=== PATIENT | female | born 1935 | race Caucasian/White ===

== ENCOUNTER 2018-07-25 01:08 | Inpatient (IN) ==
--- NOTE | 2018-07-25 08:25 | Internal Med History&Physical ---
Date of Encounter: 07/25/18 Time of Encounter: 08:25 Internal Medicine - H&P: HPI Chief complaint: fall History of present illness: Ms. Arroyo is a 82 year old female with PMHx asthma, atrial fibrillation, cancer, COPD, diabetes, hypertension who presented to [place] after she sustained a mechanical fall she was evaluated and imaging studies revealed nondisplaced right lateral femoral condyle fracture. Also was consulted and patient was transferred for further evaluation and management including obtaining an MRI of her right knee. She is complaining of swelling and pain of her right knee. Past Med Surg Social Fam HX - Past Medical History Medical history: asthma, atrial fibrillation, cancer, COPD, diabetes, hypertension Additional medical history: breast/kidney cancer Psychiatric history: anxiety, depression - Past Surgical History Additional surgical history: nephrectomy left side. lumpectomy. cholecystectomy. toe amputation - Social History Smoking Status: Never smoker Smokeless Tobacco Status: No Alcohol use: none Drug use: none - Family History Mother Living Status: Hx Family Cardiac Disorders: Yes (Strokes) Hx Family Endocrine Disorder: Yes (Diabetes) Sister Living Status: Hx Family Cancer: Yes (Ovarian, Colon, Breast) Internal Medicine - H&P: Meds Alendronate Sodium 70 mg PO QWEEK 04/27/18 [History] Armodafinil [Nuvigil] 500 mg PO QAM 04/27/18 [History] Donepezil HCl [Aricept] 10 mg PO DAILY 04/27/18 [History] Gabapentin [Neurontin] 100 mg PO DAILY 04/27/18 [History] Gemfibrozil [Lopid] 600 mg PO BID 04/27/18 [History] Ondansetron HCl [Zofran] 4 mg PO Q8HR PRN 04/27/18 [History] Albuterol Sulfate [Proair Hfa] 2 puff IH Q6H PRN 07/24/18 [History] Budesonide/Formoterol 160/4.5 [Symbicort 160/4.5] 2 puff IH BID 07/24/18 [History] Hydrochlorothiazide [Microzide] 12.5 mg PO DAILY 07/24/18 [History] Oxybutynin Chloride [Ditropan Xl] 10 mg PO QPM 07/24/18 [History] Amlodipine Besylate 2.5 mg PO DAILY 07/25/18 [History] Ascorbic Acid [Vitamin C] 500 mg PO DAILY 07/25/18 [History] Aspirin [Adult Aspirin Regimen] 81 mg PO DAILY 07/25/18 [History] Cholecalciferol (Vitamin D3) [Vitamin D] 5,000 unit PO DAILY 07/25/18 [History] Cranberry Conc/C/Bacill Coag [Cranberry Tablet] 1 tab PO DAILY 07/25/18 [History] DiphenhydraMINE [Benadryl] 25 - 50 mg PO DAILY PRN 07/25/18 [History] Krill/Om-3/Dha/Epa/Phospho/Ast [Maximum Red Krill [place]-3 Sfgl] 1 cap PO DAILY 07/25/18 [History] Non-Formulary Medication 1 tab PO BID 07/25/18 [History] Non-Formulary Medication 1 tab PO DAILY 07/25/18 [History] Non-Formulary Medication 1 tab PO DAILY 07/25/18 [History] Non-Formulary Medication 1 tab PO DAILY 07/25/18 [History] Non-Formulary Medication 1 tab PO DAILY 07/25/18 [History] Allergy/AdvReac Type Severity Reaction Status Date / Time methenamine [From Hiprex] Allergy Hives Verified 06/03/18 12:40 monosodium glutamate Allergy Anaphylaxis Verified 06/03/18 12:40 moxifloxacin [From Avelox] Allergy Anaphylaxis Verified 06/03/18 12:40 naproxen [From Naprosyn] Allergy Rash Verified 06/03/18 12:40 clarithromycin [From Biaxin] AdvReac Nausea Verified 06/03/18 12:40 pantoprazole [From Protonix] AdvReac Nausea Verified 06/03/18 12:40 All Systems PM: A 10-system review of systems was performed and is negative for pertinent findings except as documented above in the HPI. - Constitutional Constitutional: no chills, no fever(s), no night sweats - EENT Eyes: no change in vision, no discharge, no pain, no photophobia Ears: no ear discharge, no ear pain, no tinnitus Nose, mouth and throat: no dysphagia, no nasal discharge, no neck pain, no sore throat - Cardiovascular Cardiovascular ROS IM: no chest pain, no diaphoresis, no dyspnea, no lightheadedness, no palpitations, no syncope - Respiratory Respiratory: no cough, no dyspnea, no wheezing, no excessive phlegm production - Gastrointestinal Gastrointestinal: no abdominal pain, no diarrhea, no hematemesis, no hematochezia, no melena, no nausea, no vomiting - Genitourinary Genitourinary: no change in urinary stream, no dysuria, no flank pain, no hematuria - Musculoskeletal Musculoskeletal ROS IM: as per HPI, limited range of motion, no numbness, no tingling - Integumentary Integumentary IM: no rash, no unusual bruising - Neurological Neurological ROS: no confusion, no convulsions, no focal weakness, no numbness, no tingling, no tremor(s) - Hematologic/Lymphatic Hematologic/Lymphatic: no easy bruising - Constitutional Vitals: Temp Pulse Resp BP Pulse Ox 97.8 F 64 14 133/63 98 07/25/18 06:54 07/25/18 06:54 07/25/18 06:54 07/25/18 06:54 07/25/18 06:54 Exam: Gen.: Nonacute distress, alert and oriented 3 ENT: Mucosal membranes moist Respiratory: Lungs are clear to auscultation bilaterally without any wheezing rhonchi or rales Cardiovascular: Normal S1 and S2 regular rate rhythm no murmurs rubs or gallops Abdomen: Soft, nontender and nondistended with positive bowel sounds Extremities: No lower extremity edema Skin: Normal color Internal Med - H&P Results - Labs CBC & Chem 7: 07/29/18 06:11 07/29/18 06:11 - Assessment and Plan (1) Knee fracture, right Current Visit: Yes Status: Acute Assessment and plan: Orthopedic was consulted , and decision was made not to proceed with surgery and nonoperative management was recommended, we will consult physical therapy for further evaluation (2) Hypertension Current Visit: Yes Status: Chronic Assessment and plan: We will continue home medication and monitor blood pressure while inpatient Qualifiers: Hypertension type: essential hypertension Qualified Code(s): I10 - Essenti al (primary) hypertension (3) Anemia Current Visit: Yes Status: Chronic Assessment and plan: Hemoglobin are stable we will continue to monitor H&H Qualifiers: Anemia type: iron deficiency Iron deficiency anemia type: unspecified iron deficiency Qualified Code(s): D50.9 - Iron deficiency anemia, unspecified (4) DVT prophylaxis Current Visit: Yes Status: Acute Assessment and plan: The patient have history of paroxysmal A. fib however she is not in any anticoagulation, start the patient on heparin 5000 twice a day - Time Spent With Patient Total time spent is greater than 50% in coordination of care (as documented) at patient's floor/unit and/or counseling patient:
[2018-07-25] MEDS ORDERED: Naloxone 0.4 MG/ML INJ IVP PRN (08:38)
[2018-07-25] MEDS ORDERED: *HR* OxyCODONE Immed Rel 5 MG TABLET PO PRN (08:38)
--- NOTE | 2018-07-25 11:35 | Orthopedic Consult Note ---
Date of Encounter: 07/25/18 Time of Encounter: 11:33 Assessment and Plan (1) Knee fracture, right Current Visit: No Status: Acute The diagnosis and treatment conditions were discussed with the patient. With the nonspecific nature the fracture recommend nonoperative management. Continue the knee immobilizer at this time and she will transition to a hinged knee brace as an outpatient. Recommend nonweightbearing of the right lower extremity to allow for fracture healing. Up with PT as she is able with evaluation for possible rehabilitation placement. She may follow up in [place] close to home with Dr. Benito. History of Present Illness HPI: Ms. Arroyo is a 82 year old female with PMHx asthma, atrial fibrillation, cancer, COPD, diabetes, hypertension who was transferred from [facility] ER with a nondisplaced right lateral femoral condyle fracture. This occurred after mechanical fall on the right knee. She had immediate pain and swelling with inability to ambulate. Denies any loss of consciousness, shortness of breath or chest pain prior to fall. She was placed in knee immobilizer and transferred for further recommendations and orthopedic consult. Past Med Surg Social Fam HX - Past Medical History Medical history: asthma, atrial fibrillation, cancer, COPD, diabetes, hypertension Additional medical history: breast/kidney cancer Psychiatric history: anxiety, depression - Past Surgical History Additional surgical history: nephrectomy left side. lumpectomy. cholecystectomy. toe amputation - Social History Smoking Status: Never smoker Smokeless Tobacco Status: No Alcohol use: none Drug use: none - Family History Mother Living Status: Hx Family Cardiac Disorders: Yes (Strokes) Hx Family Endocrine Disorder: Yes (Diabetes) Sister Living Status: Hx Family Cancer: Yes (Ovarian, Colon, Breast) Medications and Allergies Alendronate Sodium 70 mg PO QWEEK 04/27/18 [History] Amlodipine Besylate 2.5 mg PO DAILY 04/27/18 [History] Armodafinil [Nuvigil] 250 mg PO DAILY 04/27/18 [History] Donepezil HCl [Aricept] 10 mg PO DAILY 04/27/18 [History] FLUoxetine HCl [Sarafem] 10 mg PO DAILY 04/27/18 [History] Gabapentin [Neurontin] 100 mg PO TID 04/27/18 [History] Gemfibrozil [Lopid] 600 mg PO BIDWM 04/27/18 [History] Ondansetron HCl [Zofran] 4 mg PO Q8HR PRN 04/27/18 [History] Ascorbic Acid [Vitamin C] 500 mg PO 0630 tablet 05/02/18 [Rx] Aspirin Enteric Coated [Aspirin EC] 81 mg PO Q48H tablet. 05/02/18 [Rx] Ferrous Sulfate 325 mg PO 0630 tablet 05/02/18 [Rx] Albuterol Sulfate [Proair Hfa] 1 puff IH Q6H 07/24/18 [History] Budesonide/Formoterol 160/4.5 [Symbicort 160/4.5] 2 puff IH BIDR 07/24/18 [History] Cholecalciferol (Vitamin D3) [Vitamin D] 50,000 unit PO QWEEK 07/24/18 [History] Cranberry Fruit Extract [Cranberry] 425 mg PO DAILY 07/24/18 [History] Hydrochlorothiazide [Microzide] 12.5 mg PO DAILY 07/24/18 [History] Loratadine [Claritin] 10 mg PO DAILY 07/24/18 [History] Lutein 6 mg PO DAILY 07/24/18 [History] Oxybutynin Chloride [Ditropan Xl] 10 mg PO DAILY 07/24/18 [History] Allergy/AdvReac Type Severity Reaction Status Date / Time methenamine [From Hiprex] Allergy Hives Verified 06/03/18 12:40 monosodium glutamate Allergy Anaphylaxis Verified 06/03/18 12:40 moxifloxacin [From Avelox] Allergy Anaphylaxis Verified 06/03/18 12:40 naproxen [From Naprosyn] Allergy Rash Verified 06/03/18 12:40 clarithromycin [From Biaxin] AdvReac Nausea Verified 06/03/18 12:40 pantoprazole [From Protonix] AdvReac Nausea Verified 06/03/18 12:40 All Systems Reviewed: The remainder of the systems were reviewed and are negative except as noted in the HPI Physical Exam - Constitutional Vitals: Temp Pulse Resp BP Pulse Ox 98.0 F 61 13 115/67 90 07/25/18 10:37 07/25/18 10:37 07/25/18 10:37 07/25/18 10:37 07/25/18 10:37 Exam: Consult Exam: Constitutional -Vitals reviewed -The patient is well developed and well nourished. -Mood is pleasant. -The patient is well groomed. Psychiatric -The patient is fully alert and oriented x 3. Respiratory: -Respiratory effort normal Abdomen: -Soft abdomen -Non tender -Non distended: Left upper extremity: -No deformities. The overlying skin is intact. No obvious signs of acute trauma. -No tenderness to palpation throughout. -No significant pain with passive motion of the shoulder, elbow, wrist, and fingers within the limits of the bed. -Able to make an "OK" sign, cross the index and long fingers, and extend the thumb. -Sensation grossly intact to light touch throughout the median, radial, and ulnar distributions. -Radial pulse is present; Fingers have good capillary refill. Right upper extremity: -No deformities. The overlying skin is intact. No obvious signs of acute trauma. -No tenderness to palpation throughout. -No significant pain with passive motion of the shoulder, elbow, wrist, and fingers within the limits of the bed. -Able to make an "OK" sign, cross the index and long fingers, and extend the thumb. -Sensation grossly intact to light touch throughout the median, radial, and ulnar distributions. -Radial pulse is present; Fingers have good capillary refill. Left lower extremity: -No deformities. The overlying skin is intact. No obvious signs of acute trauma. -No tenderness to palpation throughout. -No pain with passive motion of the hip, knee, ankle, and toes within the limits of the bed. -No pain with axial loading of the thigh. -Able to dorsiflex and plantarflex the ankle and toes. -Sensation is grossly intact to light touch throughout the sural, saphenous, superficial peroneal, and deep peroneal distributions. -Toes have good capillary refill. Right lower extremity: -Right knee effusion The overlying skin is intact. -tenderness to palpation over lateral aspect right knee. -Pain with range of motion of the knee. -No pain with axial loading of the thigh. -Able to dorsiflex and plantarflex the ankle and toes. -Sensation is grossly intact to light touch throughout the sural, saphenous, superficial peroneal, and deep peroneal distributions. -Toes have good capillary refill. Results - Labs Labs: All other labs normal. - Diagnostic results Knee CT: report reviewed, image reviewed (Nondisplaced fracture of the right distal lateral femoral condyle.) Consult Discharge Plan - Plan Referrals: Merlin Gee MD [Primary Care Provider] -
[2018-07-25] MEDS: *HR* OxyCODONE Immed Rel 5 MG TABLET PO PRN ×2 (15:11→22:00)
[2018-07-26] MEDS: *HR* OxyCODONE Immed Rel 5 MG TABLET PO PRN ×2 (03:20→08:21)
[2018-07-26] MEDS: *HR* Heparin 5,000 UNIT/ML VIAL SQ SCH ×2 (06:20→16:33)
[2018-07-26] MEDS: Budesonide/Formoterol 160/4.5 1 PUFF INH IH SCH ×2 (07:39→21:14)
[2018-07-26] MEDS: Aspirin Enteric Coated 81 MG Tablet PO SCH (08:17)
[2018-07-26] MEDS: Cholecalciferol (D-3) 1,000 UNIT TABLET PO SCH (08:17)
[2018-07-26] MEDS: Gabapentin 100 MG CAPSULE PO SCH (08:18)
[2018-07-26] MEDS: Ascorbic Acid 500 MG TABLET PO SCH (08:18)
[2018-07-26] MEDS: hydroCHLOROthiazide 25 MG TABLET PO SCH (08:18)
[2018-07-26] MEDS: ARMODAFINIL PO SCH (08:19)
[2018-07-26] MEDS ORDERED: [UNRECOGNIZED DRUG - OTHER] PO SCH (09:00)
--- NOTE | 2018-07-26 11:23 | Internal Med Progress Note ---
Hospitalist Progress Note - Encounter Date of Encounter: 07/26/18 Time of Encounter: 09:50 - Subjective Interval History: Patient lying down in bed. Continues to have pain in the right knee region. No fevers or chills reported overnight. Tolerating diet well. - Exam Vitals: Temp Pulse Resp BP Pulse Ox 97.9 F 86 16 129/76 95 07/26/18 10:16 07/26/18 10:16 07/26/18 10:16 07/26/18 10:16 07/26/18 10:16 Exam: General: Patient is alert, no acute distress, oriented x 3 ENT: Mucous membranes moist Respiratory: Good respiratory effort. Normal breath sounds. No wheezing or crackles. Cardiovascular: Regular rate and rhythm. s1 and s2 normal No clicks, rubs, gallops, or murmurs. No pedal edema Abdomen: Abdomen is soft, nontender. Bowel sounds are present Musculoskeletal: Tenderness over right knee region. Decreased range of motion. Skin: warm, dry, intact. Neuro: Alert oriented x 3 normal cranial nerves, no focal deficits - Assessment and Plan (1) Knee fracture, right Current Visit: Yes Status: Acute (2) Hypertension Current Visit: Yes Status: Chronic (3) Anemia Current Visit: Yes Status: Chronic (4) DVT prophylaxis Current Visit: Yes Status: Acute - Summary of Assessment and Plan Summary of Assessment and Plan: Patient with acute right knee fracture. Evaluated by orthopedics and recommended nonoperative management. Pain control. We will add IV Tylenol to pain medication regimen to control pain better. Hemoglobin 9.6 yesterday. She did have low iron levels previously. Will place her on iron supplements. We will continue to monitor blood,. Blood pressure is well controlled. Continue hydrochlorothiazide. Awaiting evaluation by physical therapy. Reported history of diabetes but her A1c was 5.6% in April. Sugars are well controlled. Continue Symbicort and bronchodilators as needed for COPD. Not in acute exacerbation. - Time Spent with Patient Total time spent is greater than 50% in coordination of care (as documented) at patient's floor/unit and/or counseling patient: Consult Discharge Plan - Plan Referrals: Merlin Gee MD [Primary Care Provider] - (2) Hypertension Qualifiers: Hypertension type: essential hypertension Qualified Code(s): I10 - Essential (primary) hypertension (3) Anemia Qualifiers: Anemia type: iron deficiency Iron deficiency anemia type: unspecified iron deficiency Qualified Code(s): D50.9 - Iron deficiency anemia, unspecified
[2018-07-26] MEDS: Acetaminophen IV 1,000 MG/100 ML INFUS..BTL IVPB PRN ×2 (12:22→21:48)
[2018-07-26] MEDS: [UNRECOGNIZED DRUG - OTHER] PO SCH (17:56)
[2018-07-26] MEDS: [UNRECOGNIZED DRUG - OTHER] PO SCH (17:56)
[2018-07-27 02:48] LABS: Basophils % 0.4 %; Eosinophils # 0.3 K/mcL (0.0-0.6); Eosinophils % 3.7 %; Hematocrit 27.7 % (35.3-44.9); Hemoglobin 8.8 g/dL (11.5-15.4); Immature Granulocytes % 0.4 % (0-4); Lymphocytes # 1.4 K/mcL (0.6-4.6); Lymphocytes % 16.7 %; Mean Corpuscular HGB Conc 31.8 g/dL (31.6-35.5); Mean Corpuscular Hemoglobin 29.7 pg (28.0-33.3); Mean Corpuscular Volume 93.6 fL (83.0-100.0); Mean Platelet Volume 10.3 fL (9.4-12.4); Monocytes # 0.5 K/mcL (0.0-1.3); Monocytes % 5.7 %; Neutrophils # 5.9 K/mcL (1.6-8.9); Platelet Count 228 K/mcL (140-400); Red Blood Count 2.96 M/mcL (3.82-4.97); Segmented Neutrophils % 73.1 %
[2018-07-27 03:06] LABS: Calcium 8.6 mg/dL (8.6-10.3); Potassium 3.9 mEq/L (3.5-5.1)
[2018-07-27] MEDS: *HR* Heparin 5,000 UNIT/ML VIAL SQ SCH ×2 (05:59→19:18)
[2018-07-27] MEDS: ARMODAFINIL PO SCH (07:03)
[2018-07-27] MEDS: Cholecalciferol (D-3) 1,000 UNIT TABLET PO SCH (07:18)
[2018-07-27] MEDS: Ascorbic Acid 500 MG TABLET PO SCH (07:19)
[2018-07-27] MEDS: hydroCHLOROthiazide 25 MG TABLET PO SCH (07:19)
[2018-07-27] MEDS: Aspirin Enteric Coated 81 MG Tablet PO SCH (07:19)
[2018-07-27] MEDS: Gabapentin 100 MG CAPSULE PO SCH (07:19)
[2018-07-27] MEDS: [UNRECOGNIZED DRUG - OTHER] PO SCH (07:23)
[2018-07-27] MEDS: [UNRECOGNIZED DRUG - OTHER] PO SCH (07:23)
[2018-07-27] MEDS: Budesonide/Formoterol 160/4.5 1 PUFF INH IH SCH ×2 (07:46→22:51)
[2018-07-27] MEDS: Acetaminophen IV 1,000 MG/100 ML INFUS..BTL IVPB PRN (08:41)
[2018-07-27] MEDS: *HR* OxyCODONE Immed Rel 5 MG TABLET PO PRN ×2 (09:03→23:28)
--- NOTE | 2018-07-27 14:47 | Internal Med Progress Note ---
Hospitalist Progress Note - Encounter Date of Encounter: 07/27/18 Time of Encounter: 08:50 - Subjective Interval History: Patient sitting up in chair. She complains of pain in her right knee. She did well after she received IV Tylenol decision in morning and did not require any pain medication after through the entire day. However her IV has gone back and she has not been able to receive any IV Tylenol today. The pain had previously been also controlled with the Roxicodone. - Exam Vitals: Temp Pulse Resp BP Pulse Ox 97.6 F 78 16 118/68 95 07/27/18 10:37 07/27/18 10:37 07/27/18 10:37 07/27/18 10:37 07/27/18 10:37 Exam: General: Patient is alert, no acute distress, oriented x 3 ENT: Mucous membranes moist Respiratory: Good respiratory effort. Normal breath sounds. No wheezing or crackles. Cardiovascular: Regular rate and rhythm. s1 and s2 normal No clicks, rubs, gallops, or murmurs. No pedal edema Abdomen: Abdomen is soft, nontender. Bowel sounds are present Musculoskeletal: Decreased range of motion in right lower extremity. Tenderness to palpation just above her right knee. Skin: warm, dry, intact. Neuro: Alert oriented x 3 normal cranial nerves, no focal deficits - Assessment and Plan (1) Knee fracture, right Current Visit: Yes Status: Acute (2) Hypertension Current Visit: Yes Status: Chronic (3) Anemia Current Visit: Yes Status: Chronic (4) DVT prophylaxis Current Visit: Yes Status: Acute - Summary of Assessment and Plan Summary of Assessment and Plan: Patient with acute right knee fracture. Continue supportive care. Plan for nonoperative management. PTOT evaluation pending. Continue with current pain medication regimen. We will DC intravenous acetaminophen. Monitor vital signs closely. Follow orthopedic and PTOT recommendations. DVT prophylaxis with subcutaneous heparin. Blood pressure is well controlled. Patient does have stable anemia. Moderate risk for complications. - Time Spent with Patient Total time spent is greater than 50% in coordination of care (as documented) at patient's floor/unit and/or counseling patient: Internal Medicine: Result - Labs CBC & Chem 7: 07/27/18 02:30 07/27/18 02:30 Labs: Short CBC 07/27/18 Range/Units 02:30 WBC 8.1 (4.3-11.1) K/mcL Hgb 8.8 L (11.5-15.4) g/dL Hct 27.7 L (35.3-44.9) % Plt Count 228 (140-400) K/mcL Neutrophils # 5.9 (1.6-8.9) K/mcL [facility] 07/27/18 02:30 Sodium 137 Potassium 3.9 Chloride 102 Carbon Dioxide 24 BUN 42 H Creatinine 1.11 Glucose 131 H Calcium 8.6 Consult Discharge Plan - Plan Referrals: Merlin Gee MD [Primary Care Provider] - (2) Hypertension Qualifiers: Hypertension type: essential hypertension Qualified Code(s): I10 - Essential (primary) hypertension (3) Anemia Qualifiers: Anemia type: iron deficiency Iron deficiency anemia type: unspecified iron deficiency Qualified Code(s): D50.9 - Iron deficiency anemia, unspecified
[2018-07-28] MEDS: *HR* Heparin 5,000 UNIT/ML VIAL SQ SCH ×2 (04:31→17:29)
[2018-07-28] MEDS: *HR* OxyCODONE Immed Rel 5 MG TABLET PO PRN (06:06)
[2018-07-28 07:04] LABS: Basophils % 0.3 %; Eosinophils # 0.3 K/mcL (0.0-0.6); Eosinophils % 4.6 %; Hematocrit 26.1 % (35.3-44.9); Hemoglobin 8.1 g/dL (11.5-15.4); Immature Granulocytes % 0.5 % (0-4); Lymphocytes # 1.5 K/mcL (0.6-4.6); Lymphocytes % 22.7 %; Mean Corpuscular Hemoglobin 29.1 pg (28.0-33.3); Mean Corpuscular Volume 93.9 fL (83.0-100.0); Mean Platelet Volume 11.4 fL (9.4-12.4); Monocytes # 0.5 K/mcL (0.0-1.3); Monocytes % 6.8 %; Neutrophils # 4.3 K/mcL (1.6-8.9); Platelet Count 252 K/mcL (140-400); Red Blood Count 2.78 M/mcL (3.82-4.97); Segmented Neutrophils % 65.1 %
[2018-07-28 07:21] LABS: Calcium 9.3 mg/dL (8.6-10.3); Potassium 4.3 mEq/L (3.5-5.1)
[2018-07-28] MEDS: Budesonide/Formoterol 160/4.5 1 PUFF INH IH SCH ×2 (07:36→20:38)
[2018-07-28] MEDS: Cholecalciferol (D-3) 1,000 UNIT TABLET PO SCH (09:13)
[2018-07-28] MEDS: Ascorbic Acid 500 MG TABLET PO SCH (09:13)
[2018-07-28] MEDS: Gabapentin 100 MG CAPSULE PO SCH (09:13)
[2018-07-28] MEDS: Acetaminophen 325 MG TABLET PO PRN ×2 (09:14→19:58)
[2018-07-28] MEDS: Aspirin Enteric Coated 81 MG Tablet PO SCH (09:14)
[2018-07-28] MEDS: [UNRECOGNIZED DRUG - OTHER] PO SCH (09:17)
[2018-07-28] MEDS: [UNRECOGNIZED DRUG - OTHER] PO SCH (09:17)
[2018-07-28] MEDS: hydroCHLOROthiazide 25 MG TABLET PO SCH (09:18)
[2018-07-28] MEDS: *HR* OxyCODONE ER (12 HR) 10 MG TABLET PO SCH ×2 (09:51→17:29)
--- NOTE | 2018-07-28 11:28 | Internal Med Progress Note ---
Hospitalist Progress Note - Encounter Date of Encounter: 07/28/18 Time of Encounter: 09:40 - Subjective Interval History: Patient complains of worsening pain in her right knee today. Feels that the braces too tight. Denies any fevers or chills. Tolerating diet well. No nausea or vomiting. No other complaints at this time. - Exam Vitals: Temp Pulse Resp BP Pulse Ox 97.9 F 65 16 113/72 97 07/28/18 11:21 07/28/18 11:21 07/28/18 11:07/28/18 11:07/28/18 11:21 Exam: General: Patient is alert, mild distress, oriented x 3 Respiratory: Good respiratory effort. Normal breath sounds. No wheezing or crackles. Cardiovascular: Regular rate and rhythm. s1 and s2 normal No clicks, rubs, gallops, or murmurs. No pedal edema Abdomen: Abdomen is soft, nontender. Bowel sounds are present Musculoskeletal: Spontaneously moving all extremities; tenderness over right knee. Decreased range of motion. Currently in brace Skin: warm, dry, intact. Neuro: Alert oriented x 3 normal cranial nerves, no focal deficits - Assessment and Plan (1) Knee fracture, right Current Visit: Yes Status: Acute Assessment and Plan: Conservative management. Awaiting placement to skilled rehabilitation. We will adjust pain medication regimen to control her pain better. Continue PTOT as tolerated. Follow up with orthopedics after discharge. (2) Hypertension Current Visit: Yes Status: Chronic Assessment and Plan: Well-controlled (3) Anemia Current Visit: Yes Status: Chronic Assessment and Plan: Hemoglobin 8.1 today. Will monitor. Check vitamin B-12 folic acid and iron levels. (4) DVT prophylaxis Current Visit: Yes Status: Acute Assessment and Plan: On subcutaneous heparin - Time Spent with Patient Total time spent is greater than 50% in coordination of care (as documented) at patient's floor/unit and/or counseling patient: Internal Medicine: Result - Labs CBC & Chem 7: 07/28/18 05:57 07/28/18 05:57 Labs: Short CBC 07/28/18 Range/Units 05:57 WBC 6.6 (4.3-11.1) K/mcL Hgb 8.1 L (11.5-15.4) g/dL Hct 26.1 L (35.3-44.9) % Plt Count 252 (140-400) K/mcL Neutrophils # 4.3 (1.6-8.9) K/mcL BMP 07/28/18 05:57 Sodium 138 Potassium 4.3 Chloride 103 Carbon Dioxide 25 BUN 43 H Creatinine 1.07 Glucose 124 H Calcium 9.3 Consult Discharge Plan - Plan Referrals: Merlin Gee MD [Primary Care Provider] - (2) Hypertension Qualifiers: Hypertension type: essential hypertension Qualified Code(s): I10 - Essential (primary) hypertension (3) Anemia Qualifiers: Anemia type: iron deficiency Iron deficiency anemia type: unspecified iron deficiency Qualified Code(s): D50.9 - Iron deficiency anemia, unspecified
[2018-07-28] MEDS: NUVIGIL PO SCH (11:55)
[2018-07-29] MEDS: *HR* OxyCODONE Immed Rel 5 MG TABLET PO PRN ×2 (02:12→11:36)
[2018-07-29] MEDS: *HR* OxyCODONE ER (12 HR) 10 MG TABLET PO SCH ×2 (06:02→17:24)
[2018-07-29] MEDS: *HR* Heparin 5,000 UNIT/ML VIAL SQ SCH ×2 (06:03→17:24)
[2018-07-29 06:48] LABS: Basophils % 0.3 %; Eosinophils # 0.3 K/mcL (0.0-0.6); Eosinophils % 4.3 %; Hematocrit 28.5 % (35.3-44.9); Hemoglobin 9.1 g/dL (11.5-15.4); Immature Granulocytes % 0.3 % (0-4); Lymphocytes # 1.3 K/mcL (0.6-4.6); Lymphocytes % 22.2 %; Mean Corpuscular HGB Conc 31.9 g/dL (31.6-35.5); Mean Corpuscular Hemoglobin 29.4 pg (28.0-33.3); Mean Corpuscular Volume 92.2 fL (83.0-100.0); Mean Platelet Volume 10.9 fL (9.4-12.4); Monocytes # 0.4 K/mcL (0.0-1.3); Monocytes % 6.1 %; Neutrophils # 3.9 K/mcL (1.6-8.9); Platelet Count 270 K/mcL (140-400); Red Blood Count 3.09 M/mcL (3.82-4.97); Segmented Neutrophils % 66.8 %
[2018-07-29 07:11] LABS: Calcium 9.6 mg/dL (8.6-10.3)
[2018-07-29] MEDS: Budesonide/Formoterol 160/4.5 1 PUFF INH IH SCH ×2 (07:44→20:37)
[2018-07-29] MEDS: Aspirin Enteric Coated 81 MG Tablet PO SCH (10:08)
[2018-07-29] MEDS: [UNRECOGNIZED DRUG - OTHER] PO SCH (10:09)
[2018-07-29] MEDS: Ascorbic Acid 500 MG TABLET PO SCH (10:09)
[2018-07-29] MEDS: Cholecalciferol (D-3) 1,000 UNIT TABLET PO SCH (10:09)
[2018-07-29] MEDS: hydroCHLOROthiazide 25 MG TABLET PO SCH (10:09)
[2018-07-29] MEDS: [UNRECOGNIZED DRUG - OTHER] PO SCH (10:09)
[2018-07-29] MEDS: Gabapentin 100 MG CAPSULE PO SCH (10:09)
[2018-07-29] MEDS: NUVIGIL PO SCH (10:10)
--- NOTE | 2018-07-29 14:24 | Internal Med Progress Note ---
Hospitalist Progress Note - Encounter Date of Encounter: 07/29/18 Time of Encounter: 11:00 - Subjective Interval History: Patient is an 82-year-old female who presents due to mechanical fall found to have nondisplaced right lateral femoral condyle fracture. Orthopedics with recommendations for nonoperative management including knee immobilizer and physical therapy. Awaiting placement to senior living facility; anticipate discharge on 07/30/18 - Exam Vitals: Temp Pulse Resp BP Pulse Ox 97.9 F 76 16 126/69 96 07/29/18 10:54 07/29/18 10:54 07/29/18 10:54 07/29/18 10:54 07/29/18 10:54 Exam: Gen.: Nonacute distress, alert and oriented 3 ENT: Mucosal membranes moist Respiratory: Lungs are clear to auscultation bilaterally without any wheezing rhonchi or rales Cardiovascular: Normal S1 and S2 regular rate rhythm no murmurs rubs or gallops Abdomen: Soft, nontender and nondistended with positive bowel sounds Extremities: No lower extremity edema Skin: Normal color - Assessment and Plan (1) Knee fracture, right Current Visit: Yes Status: Acute Assessment and Plan: Patient presented due to mechanical fall found to have nondisplaced right lateral femoral condyle fracture. Orthopedics with recommendations for nonoperative management including knee immobilizer and physical therapy. Awaiting placement to senior living facility; anticipate discharge on 07/30/18 (2) Hypertension Current Visit: Yes Status: Chronic Assessment and Plan: Continue home dose of hydrochlorothiazide (3) Anemia Current Visit: Yes Status: Chronic Assessment and Plan: Stable; continue to monitor DVT Prophylaxis: Heparin subcutaneous - Time Spent with Patient Total time spent is greater than 50% in coordination of care (as documented) at patient's floor/unit and/or counseling patient: Internal Medicine: Result - Labs CBC & Chem 7: 07/29/18 06:11 07/29/18 06:11 Labs: Short CBC 07/29/18 Range/Units 06:11 WBC 5.8 (4.3-11.1) K/mcL Hgb 9.1 L (11.5-15.4) g/dL Hct 28.5 L (35.3-44.9) % Plt Count 270 (140-400) K/mcL Neutrophils # 3.9 (1.6-8.9) K/mcL BMP 07/29/18 06:11 Sodium 140 Potassium 4.0 Chloride 103 Carbon Dioxide 25 BUN 44 H Creatinine 1.10 Glucose 117 H Calcium 9.6 Consult Discharge Plan - Plan Referrals: Merlin Gee MD [Primary Care Provider] - (2) Hypertension Qualifiers: Hypertension type: essential hypertension Qualified Code(s): I10 - Essential (primary) hypertension (3) Anemia Qualifiers: Anemia type: iron deficiency Iron deficiency anemia type: unspecified iron deficiency Qualified Code(s): D50.9 - Iron deficiency anemia, unspecified
[2018-07-29] MEDS: Acetaminophen 325 MG TABLET PO PRN (21:47)
--- NOTE | 2018-07-30 01:42 | Event Note ---
Date of Encounter: 07/30/18 Time of Encounter: 00:26 Alerted by pts. nurse SAMI Bashir that the pt. had gotten up to use the bedside commode with assistance from Tech when her legs buckled and pt. was assisted to the floor. No actual fall. Went to see the pt. who was resting in bed. Pt. stated that she was attempting to use the walker for stability when when she lost her footing. Pt. denied falling or injuring herself. I asked the pt. how she felt now and she stated just fine. Falls precautions and up with assist only ordered. I instructed the pt. to not get out of bed without assistance and that I had made her falls precautions. The pt. expressed understanding and agreement to this plan. Nurse instructed to continue monitoring the pt. closely and alert me immediately of any adverse changes.
[2018-07-30] MEDS: *HR* Heparin 5,000 UNIT/ML VIAL SQ SCH (06:17)
[2018-07-30] MEDS: *HR* OxyCODONE ER (12 HR) 10 MG TABLET PO SCH (06:17)
[2018-07-30] MEDS: Budesonide/Formoterol 160/4.5 1 PUFF INH IH SCH (07:42)
[2018-07-30] MEDS: Aspirin Enteric Coated 81 MG Tablet PO SCH (07:54)
[2018-07-30] MEDS: Cholecalciferol (D-3) 1,000 UNIT TABLET PO SCH (07:54)
[2018-07-30] MEDS: Ascorbic Acid 500 MG TABLET PO SCH (07:55)
[2018-07-30] MEDS: hydroCHLOROthiazide 25 MG TABLET PO SCH (07:55)
[2018-07-30] MEDS: Gabapentin 100 MG CAPSULE PO SCH (07:55)
[2018-07-30] MEDS: [UNRECOGNIZED DRUG - OTHER] PO SCH (07:57)
[2018-07-30] MEDS: [UNRECOGNIZED DRUG - OTHER] PO SCH (07:57)
[2018-07-30] MEDS: NUVIGIL PO SCH (08:43)
[2018-07-30] MEDS: *HR* OxyCODONE Immed Rel 5 MG TABLET PO PRN (14:03)
--- NOTE | 2018-07-30 15:18 | Discharge Summary ---
Date of Encounter: 07/30/18 Time of Encounter: 11:00 - Discharge Diagnosis (1) Hypertension Priority: Secondary Status: Chronic Qualifiers: Hypertension type: essential hypertension Qualified Code(s): I10 - Essential (primary) hypertension (2) Anemia Priority: Secondary Status: Chronic Qualifiers: Anemia type: iron deficiency Iron deficiency anemia type: unspecified iron deficiency Qualified Code(s): D50.9 - Iron deficiency anemia, unspecified (3) Knee fracture, right Priority: Primary Status: Acute Hospital course: Patient is an 82-year-old female who presents due to mechanical fall found to have nondisplaced right lateral femoral condyle fracture. During patients hospital stay Orthopedics consulted with recommendations for nonoperative management including knee immobilizer and physical therapy. Patient will be discharged to [facility] facility for strengthening for reconditioning - Time Spent with Patient Total time spent providing and/or coordinating discharge services: - Discharge Medications Prescriptions: New OxyCODONE Immed Rel [Roxicodone 5 MG] 10 mg PO Q4HR PRN 3 Days #18 tablet PRN Reason: Severe Pain Continued Ascorbic Acid [Vitamin C] 500 mg PO DAILY Aspirin [Adult Aspirin Regimen] 81 mg PO DAILY Cholecalciferol (Vitamin D3) [Vitamin D3] 5,000 unit PO DAILY Cranberry Conc/C/Bacill Coag [Cranberry Tablet] 1 tab PO DAILY Krill/Om-3/Dha/Epa/Phospho/Ast [Maximum Red Krill [place]-3 Sfgl] 1 cap PO DAILY Non-Formulary Medication 1 tab PO DAILY Non-Formulary Medication 1 tab PO DAILY Non-Formulary Medication 1 tab PO DAILY Non-Formulary Medication 1 tab PO BID Non-Formulary Medication 1 tab PO DAILY DiphenhydraMINE [Benadryl] 25 - 50 mg PO DAILY PRN PRN Reason: Allergy Symptoms Amlodipine Besylate 2.5 mg PO DAILY Ondansetron HCl [Zofran] 4 mg PO Q8HR PRN PRN Reason: Nausea Gemfibrozil [Lopid] 600 mg PO BID Armodafinil [Nuvigil] 500 mg PO QAM Gabapentin [Neurontin] 100 mg PO DAILY Donepezil HCl [Aricept] 10 mg PO DAILY Alendronate Sodium 70 mg PO QWEEK Oxybutynin Chloride [Ditropan Xl] 10 mg PO QPM Budesonide/Formoterol 160/4.5 [Symbicort 160/4.5] 2 puff IH BID Albuterol Sulfate [Proair Hfa] 2 puff IH Q6H PRN PRN Reason: Wheezing Hydrochlorothiazide [Microzide] 12.5 mg PO DAILY Home Medications: Alendronate Sodium 70 mg PO QWEEK 04/27/18 [History] Armodafinil [Nuvigil] 500 mg PO QAM 04/27/18 [History] Donepezil HCl [Aricept] 10 mg PO DAILY 04/27/18 [History] Gabapentin [Neurontin] 100 mg PO DAILY 04/27/18 [History] Gemfibrozil [Lopid] 600 mg PO BID 04/27/18 [History] Ondansetron HCl [Zofran] 4 mg PO Q8HR PRN 04/27/18 [History] Albuterol Sulfate [Proair Hfa] 2 puff IH Q6H PRN 07/24/18 [History] Budesonide/Formoterol 160/4.5 [Symbicort 160/4.5] 2 puff IH BID 07/24/18 [History] Hydrochlorothiazide [Microzide] 12.5 mg PO DAILY 07/24/18 [History] Oxybutynin Chloride [Ditropan Xl] 10 mg PO QPM 07/24/18 [History] Amlodipine Besylate 2.5 mg PO DAILY 07/25/18 [History] Ascorbic Acid [Vitamin C] 500 mg PO DAILY 07/25/18 [History] Aspirin [Adult Aspirin Regimen] 81 mg PO DAILY 07/25/18 [History] Cholecalciferol (Vitamin D3) [Vitamin D3] 5,000 unit PO DAILY 07/25/18 [History] Cranberry Conc/C/Bacill Coag [Cranberry Tablet] 1 tab PO DAILY 07/25/18 [History] DiphenhydraMINE [Benadryl] 25 - 50 mg PO DAILY PRN 07/25/18 [History] Krill/Om-3/Dha/Epa/Phospho/Ast [Maximum Red Krill [place]-3 Sfgl] 1 cap PO DAILY 07/25/18 [History] Non-Formulary Medication 1 tab PO BID 07/25/18 [History] Non-Formulary Medication 1 tab PO DAILY 07/25/18 [History] Non-Formulary Medication 1 tab PO DAILY 07/25/18 [History] Non-Formulary Medication 1 tab PO DAILY 07/25/18 [History] Non-Formulary Medication 1 tab PO DAILY 07/25/18 [History] OxyCODONE Immed Rel [Roxicodone 5 MG] 10 mg PO Q4HR PRN 3 Days #18 tablet 07/30/18 [Rx] Allergies/Adverse Reactions: Allergy/AdvReac Type Severity Reaction Status Date / Time methenamine [From Hiprex] Allergy Hives Verified 06/03/18 12:40 monosodium glutamate Allergy Anaphylaxis Verified 06/03/18 12:40 moxifloxacin [From Avelox] Allergy Anaphylaxis Verified 06/03/18 12:40 naproxen [From Naprosyn] Allergy Rash Verified 06/03/18 12:40 clarithromycin [From Biaxin] AdvReac Nausea Verified 06/03/18 12:40 pantoprazole [From Protonix] AdvReac Nausea Verified 06/03/18 12:40 Date of admission: 07/27/18 14:18 Primary care physician: Merlin Gee MD Consults: 07/25/18 07:00 Consult to Orthopedic Surgery [CONS] Routine Consulting Provider: Orthoped[facility] Reason for Consult: Right femoral fracture Call Completed: Yes 07/25/18 17:41 Consult to Occupational Therapy [CONS] Routine Comment: Evaluate, develop and implement POC Reason for Consult: Right femoral fracture Does patient have active BEDREST order?: No Is patient medically & hemodynamically stable?: Yes Patient assessed for mobility or mobilized this visit?: No Consult to Physical Therapy [CONS] Routine Comment: Evaluate, develop and implement POC Reason for Consult: Right femoral fracture Does patient have active BEDREST order?: No Is patient medically & hemodynamically stable?: Yes Patient assessed for mobility or mobilized this visit?: No 07/27/18 09:11 Consult to [employer] [CONS] Routine Reason for SW Consult: Discharge planning - Constitutional Vitals: Temp Pulse Resp BP Pulse Ox 98.2 F 69 16 119/71 95 07/30/18 11:27 07/30/18 11:27 07/30/18 11:27 07/30/18 11:27 07/30/18 11:27 Exam: Gen.: Nonacute distress, alert and oriented 3 Skin: Normal color - Patient Status Disposition: Transfer SNF - Discharge Instructions Follow Up With: Merlin Gee MD [Primary Care Provider] - Heriberto Benito MD [Non-Partnered Physician] - 08/05/18 9:00 am
--- NOTE | 2018-07-30 15:20 | Physician Discharge Referral ---
[facility] Referral Info Institutional Level of Care: Skilled - Diagnosis (1) Hypertension Status: Chronic (2) Anemia Status: Chronic (3) Knee fracture, right Status: Acute (4) DVT prophylaxis Status: Acute - Transfer Medications Home Medications: Alendronate Sodium 70 mg PO QWEEK 04/27/18 [History] Armodafinil [Nuvigil] 500 mg PO QAM 04/27/18 [History] Donepezil HCl [Aricept] 10 mg PO DAILY 04/27/18 [History] Gabapentin [Neurontin] 100 mg PO DAILY 04/27/18 [History] Gemfibrozil [Lopid] 600 mg PO BID 04/27/18 [History] Ondansetron HCl [Zofran] 4 mg PO Q8HR PRN 04/27/18 [History] Albuterol Sulfate [Proair Hfa] 2 puff IH Q6H PRN 07/24/18 [History] Budesonide/Formoterol 160/4.5 [Symbicort 160/4.5] 2 puff IH BID 07/24/18 [History] Hydrochlorothiazide [Microzide] 12.5 mg PO DAILY 07/24/18 [History] Oxybutynin Chloride [Ditropan Xl] 10 mg PO QPM 07/24/18 [History] Amlodipine Besylate 2.5 mg PO DAILY 07/25/18 [History] Ascorbic Acid [Vitamin C] 500 mg PO DAILY 07/25/18 [History] Aspirin [Adult Aspirin Regimen] 81 mg PO DAILY 07/25/18 [History] Cholecalciferol (Vitamin D3) [Vitamin D3] 5,000 unit PO DAILY 07/25/18 [History] Cranberry Conc/C/Bacill Coag [Cranberry Tablet] 1 tab PO DAILY 07/25/18 [History] DiphenhydraMINE [Benadryl] 25 - 50 mg PO DAILY PRN 07/25/18 [History] Krill/Om-3/Dha/Epa/Phospho/Ast [Maximum Red Krill [place]-3 Sfgl] 1 cap PO DAILY 07/25/18 [History] Non-Formulary Medication 1 tab PO BID 07/25/18 [History] Non-Formulary Medication 1 tab PO DAILY 07/25/18 [History] Non-Formulary Medication 1 tab PO DAILY 07/25/18 [History] Non-Formulary Medication 1 tab PO DAILY 07/25/18 [History] Non-Formulary Medication 1 tab PO DAILY 07/25/18 [History] Allergies/Adverse Reactions: Allergy/AdvReac Type Severity Reaction Status Date / Time methenamine [From Hiprex] Allergy Hives Verified 06/03/18 12:40 monosodium glutamate Allergy Anaphylaxis Verified 06/03/18 12:40 moxifloxacin [From Avelox] Allergy Anaphylaxis Verified 06/03/18 12:40 naproxen [From Naprosyn] Allergy Rash Verified 06/03/18 12:40 clarithromycin [From Biaxin] AdvReac Nausea Verified 06/03/18 12:40 pantoprazole [From Protonix] AdvReac Nausea Verified 06/03/18 12:40 - Respiratory Orders Smoking Cessation: Smoking cessation has been advised. For more information, call the [place] Tobacco Quit Line at 3-069-KNTS-NOW. CERTIFICATION: I certify that the transfer of the above named patient to an Extended Care Facility is necessary for the continuing treatment of the diagnosis listed. The above information is true and accurate reflection of patient's current condition. Confidential - Redisclosure prohibited without a patient's written consent.
[2018-07-30 16:32] VITALS: BP 134/73
== END 2018-07-30 17:36 | DRG 534 ==
LOC: 3NENU → SUATTDRO 03:53
PROVIDERS: ADMIT Internal Medicine; ATTEND Hospitalist

== ENCOUNTER 2018-10-07 20:28 | Inpatient (IN) ==
[2018-10-07] MEDS ORDERED: traMADol 50 MG TABLET PO PRN (23:06)
[2018-10-08] MEDS ORDERED: Acetaminophen IV 500 MG/50 ML INFUS..BTL IVPB ONE (01:36)
[2018-10-08] MEDS ORDERED: Ondansetron 4 MG/2 ML VIAL IVP PRN (02:05)
[2018-10-08] MEDS ORDERED: Acetaminophen 325 MG TABLET PO PRN (02:05)
[2018-10-08] MEDS ORDERED: Naloxone 0.4 MG/ML INJ IVP PRN ×2 (02:05→22:27)
[2018-10-08] MEDS ORDERED: *HR* OxyCODONE Immed Rel 5 MG TABLET PO PRN ×3 (02:05→22:27)
[2018-10-08] MEDS ORDERED: 0.9 % Sodium Chloride 1,000 ML IVC SCH ×2 (02:15→22:27)
--- NOTE | 2018-10-08 02:48 | Internal Med History&Physical ---
Date of Encounter: 10/08/18 Time of Encounter: 01:30 Internal Medicine - H&P: HPI Chief complaint: Fall w/injury to left arm Admitted From: Intrahospital Transfer Plans for Post Hospital Care: Home History of present illness: Ms. Arroyo is a 83 year old female w/PMH of asthma, CKD, COPD, atrial fibrillation not on anticoagulation, diabetes, HTN, previous breast and kidney cancer (resolved) presents from [facility] ED w/CC and left arm pain. Patient reports she fell today while ambulating to the bathroom with her walker. Patient states she left the walker outside the bathroom, entered the bathroom and tripped and fell landing on her left arm. Patient denies LOC or striking head. Patient had recent surgery on RLE and was trying to protect her leg. Patient reports she felt a "pop" in her arm. Denies hx of falls. Reports 8/10 pain w/movement. Pain is alleviated w/rest. Patient denies recent illness, fever, chills, nausea, vomiting, changes in vision, headache, unusual bleeding, chest pain, shortness of breath, abdominal pain, diarrhea, constipation, dizziness, lightheadedness, numbness, tingling, pre-syncope, or syncope. Past Med Surg Social Fam HX - Past Medical History Source: patient, old records reviewed, obtained from family Medical history: asthma, atrial fibrillation, cancer, COPD, diabetes, hyper tension Additional medical history: breast/kidney cancer Psychiatric history: anxiety, depression - Past Surgical History Surgical History: breast surgery (Lumpectomy in left breast), hysterectomy, orthopedic, other, other (Nephrectomy of left kidney d/t kidney cancer) Additional surgical history: nephrectomy left side. lumpectomy. cholecystectomy. toe amputation - Social History Smoking Status: Former smoker Packs per day: 2 PPD - Reports quitting in 1996 Smokeless Tobacco Status: No Alcohol use: rarely Drug use: none Occupational status: previously employed Current living situation: Home, With Family Activity Level: Uses cane/walker Recent Out of Country Travel Within the Last 8 Weeks: No Exposure or Possible Exposure to Illness During Travel: No - Family History Mother Race: Family Member Ethnicity: Non- Living Status: Age at : 74 Cause of : CVA Hx Family Cardiac Disorders: Yes (Strokes) Hx Family Endocrine Disorder: Yes (Diabetes) Sister Race: Family Member Ethnicity: Non- Living Status: Age at : 86 Cause of : Ovarian cancer Hx Family Cancer: Yes (Ovarian, Colon, Breast) Father History Unknown: Yes Race: Family Member Ethnicity: Non- Living Status: Internal Medicine - H&P: Meds RX: Alendronate Sodium 70 mg PO QWEEK 04/27/18 [History] RX: Armodafinil [Nuvigil] 250 mg PO QAM 04/27/18 [History] RX: Gabapentin [Neurontin] 100 mg PO DAILY 04/27/18 [History] RX: Gemfibrozil [Lopid] 600 mg PO BID 04/27/18 [History] RX: Ondansetron HCl [Zofran] 4 mg PO Q8HR PRN 04/27/18 [History] RX: Albuterol Sulfate [Proair Hfa] 2 puff IH Q6H PRN 07/24/18 [History] RX: Budesonide/Formoterol 160/4.5 [Symbicort 160/4.5] 2 puff IH BID 07/24/18 [History] RX: Oxybutynin Chloride [Ditropan XL] 10 mg PO QPM 07/24/18 [History] RX: Ascorbic Acid [Vitamin C] 500 mg PO DAILY 07/25/18 [History] RX: Aspirin [Adult Aspirin Regimen] 81 mg PO DAILY 07/25/18 [History] RX: Cholecalciferol (Vitamin D3) [Vitamin D3] 5,000 unit PO DAILY 07/25/18 [History] RX: Cranberry Conc/C/Bacill Coag [Cranberry Tablet] 1 tab PO DAILY 07/25/18 [History] RX: Krill/Om-3/Dha/Epa/Phospho/Ast [Maximum Red Krill Java-3 Sfgl] 1 cap PO DAILY 07/25/18 [History] RX: Non-Formulary Medication 1 tab PO BID 07/25/18 [History] RX: Non-Formulary Medication 1 tab PO DAILY 07/25/18 [History] RX: Non-Formulary Medication 1 tab PO DAILY 07/25/18 [History] RX: Non-Formulary Medication 1 tab PO DAILY 07/25/18 [History] RX: Non-Formulary Medication 1 tab PO DAILY 07/25/18 [History] Allergy/AdvReac Type Severity Reaction Status Date / Time methenamine [From Hiprex] Allergy Hives Verified 10/07/18 19:01 monosodium glutamate Allergy Anaphylaxis Verified 10/07/18 19:01 moxifloxacin [From Avelox] Allergy Anaphylaxis Verified 10/07/18 19:01 naproxen [From Naprosyn] Allergy Rash Verified 10/07/18 19:01 clarithromycin [From Biaxin] AdvReac Nausea Verified 10/07/18 19:01 pantoprazole [From Protonix] AdvReac Nausea Verified 10/07/18 19:01 All Systems PM: A 10-system review of systems was performed and is negative for pertinent findings except as documented above in the HPI. - Constitutional Constitutional: as per HPI, no chills, no fever(s), no night sweats - EENT Eyes: no change in vision, no discharge, no pain, no photophobia Ears: no ear discharge, no ear pain, no tinnitus Nose, mouth and throat: no dysphagia, no nasal discharge, no neck pain, no sore throat - Breasts Breasts: as per HPI - Cardiovascular Cardiovascular ROS IM: as per HPI, irregular heart rhythm (Hx of atrial fibrillation not on anticoagulation), no chest pain, no diaphoresis, no dyspnea, no lightheadedness, no palpitations, no syncope - Respiratory Respiratory: no cough, no dyspnea, no wheezing, no excessive phlegm production - Gastrointestinal Gastrointestinal: no abdominal pain, no diarrhea, no hematemesis, no hematochezia, no melena, no nausea, no vomiting - Genitourinary Genitourinary: no change in urinary stream, no dysuria, no flank pain, no h ematuria Menstruation: as per HPI, post hysterectomy - Musculoskeletal Musculoskeletal ROS IM: no numbness, no tingling - Integumentary Integumentary IM: no rash, no unusual bruising - Neurological Neurological ROS: no confusion, no convulsions, no focal weakness, no numbness, no tingling, no tremor(s) - Psychiatric Psychiatric: as per HPI, anxiety, depression - Endocrine Endocrine IM: as per HPI - Hematologic/Lymphatic Hematologic/Lymphatic: no easy bruising - Allergic/Immunologic Allergic/Immunologic: as per HPI - Constitutional Vitals: Temp Pulse Resp BP Pulse Ox 97.8 F 60 15 97/55 94 10/08/18 02:31 10/08/18 02:31 10/08/18 02:31 10/08/18 02:31 10/08/18 02:31 General appearance: Present: cooperative, mild distress (Pain LUE), A&O X 3, pleasant, underweight, answers questions appropriately Exam: Patient examined at bedside. Patient reports 8/10 pain in left arm w/movement. Patient denies any other sx or complaints on exam. VS: 97.8F temp, HR 74, RR 15, BP 105/69, SPO2 94% on room air. - Head Head exam: Present: atraumatic, normocephalic - Eye Eye exam: Present: PERRL, conjuntiva pink, sclera anicteric Pupils: Present: PERRL - ENT ENT exam: Present: normal exam - Neck Neck exam general surgery: Present: normal inspection, supple, trachea midline. Absent: lymphadenopathy - Respiratory Respiratory exam: Present: CTAB. Absent: accessory muscle use, rales, rhonchi, wheezes - Cardiovascular Cardiovascular exam: Present: bradycardia, +S1, +S2. Absent: diastolic murmur, gallop, rubs, systolic murmur - GI/Abdominal GI/Abdominal exam: Present: normal bowel sounds, soft, no peritoneal signs. Absent: distended, tenderness - Rectal Rectal exam: Present: deferred - Additional comments: exam deferred. - Extremities Exam Extremities exam: Present: pedal edema, warm, radial pulses palpable and symmetrical. Absent: calf tenderness, cyanotic - Back Exam Back exam: Present: normal inspection - Neurological Exam Neurological exam: Present: alert, CN II-XII intact, oriented X3, no focal deficits. Absent: pronater drift, facial droop, speech deficit - Psychiatric Psychiatric exam: Present: normal affect, normal mood - Skin Skin exam: Present: dry, intact Internal Med - H&P Results - Labs CBC & Chem 7: 10/08/18 02:34 10/08/18 02:34 - EKG Data EKG shows normal: sinus rhythm Rate: bradycardia - EKG Data Prior EKG available for review: no EKG comments: 10/08/18 03:10 EKG dated 10/08/18 shows sinus bradycardia. Borderline ECG. - Diagnostic Studies Other Images Additional comments: EXAMINATION: 3 XRAY VIEWS OF THE LEFT ELBOW; 2 XRAY VIEWS OF THE LEFT HUMERUS 10/07/2018 7:27 pm COMPARISON: None. HISTORY: ORDERING SYSTEM PROVIDED HISTORY: FELL, LANDED ON LT ARM; ORDERING SYSTEM PROVIDED HISTORY: fall pain Initial encounter. FINDINGS: There is an acute mildly displaced supracondylar fracture of the distal humerus. No definite articular surface involvement. Evaluation of the elbow is limited by suboptimal positioning. No other fracture identified. No dislocation. The acromioclavicular and glenohumeral joints are intact. The soft tissues are unremarkable. XR/XR humerus LT IMPRESSION: Acute mildly displaced supracondylar fracture of the distal humerus. D/ / Haroon Jason MD / Haroon Jason MD Interpreting Provider: Haroon Jason MD INATION: 2 XRAY VIEWS OF THE RIGHT FEMUR 10/07/2018 7:27 pm COMPARISON: Right knee radiographs 10/07/2017. HISTORY: ORDERING SYSTEM PROVIDED HISTORY: fall femeur pain Initial encounter. FINDINGS: A healing nondisplaced fracture of the distal femur is again seen extending into the intercondylar notch. No new fracture. No dislocation. The right hip is intact. The soft tissues are unremarkable. XR/XR femur RT IMPRESSION: 1. No acute osseous abnormality. 2. Redemonstration of a healing nondisplaced distal femoral fracture. D/ / Haroon Jason MD / Haroon Jason MD Interpreting Provider: Haroon Jason MD INATION: CT OF THE LEFT ELBOW WITHOUT CONTRAST 10/07/2018 8:58 pm TECHNIQUE: CT of the left elbow was performed without the administration of intravenous contrast. Multiplanar reformatted images are provided for review. Dose modulation, iterative reconstruction, and/or weight based adjustment of the mA/kV was utilized to reduce the radiation dose to as low as reasonably achievable. COMPARISON: Left elbow radiographs 10/07/2018. HISTORY Left elbow fracture status post fall. Initial encounter. FINDINGS: Bones: There is an acute mildly comminuted oblique fracture extending from the ulnar aspect of the distal diaphysis to the radial aspect of the supracondylar humerus. The fracture likely extends into the joint space but no subchondral bone plate involvement is identified. At the radial aspect there is approximately 3 cm posterior displacement of the distal fragment. There are small foci of gas in the soft tissues posterior to the fracture. No other fracture identified. No dislocation. Soft Tissue: No radiopaque foreign body. No abnormal soft tissue mass or fluid collection. Joint: Mild ulnohumeral degenerative changes. Moderate joint effusion. CT/CT elbow LT wo con IMPRESSION: Acute mildly comminuted displaced oblique distal humeral fracture. The fracture likely extends into the joint but no subchondral bone plate involvement is identified. Small foci of gas in the soft tissues posterior to the fracture may represent vacuum phenomenon or an open component. D/ / Haroon Jason MD / Haroon Jason MD Interpreting Provider: Haroon Jason MD INATION: THREE XRAY VIEWS OF THE RIGHT KNEE 10/07/2018 11:30 am COMPARISON: 09/02/2018 HISTORY: ORDERING SYSTEM PROVIDED HISTORY: R NONDISPLACED FX OF LATERAL CONDYLE FEMUR FINDINGS: Fracture line in the intracondylar notch is somewhat less conspicuous. Mild spurring is seen medially, laterally, and in the patellofemoral joint. Small joint effusion is seen. There is spurring at the quadriceps tendon insertion. There is atherosclerosis. XR/XR knee 3V RT IMPRESSION: Healing distal femur fracture. Fracture line is still evident. D/ / Phillip Lunsford MD / Phillip Lunsford MD Interpreting Provider: Phillip Lunsford MD Chest x-ray Additional comments: Impressions EXAMINATION: ONE XRAY VIEW OF THE CHEST 10/08/2018 2:59 am COMPARISON: None. HISTORY: ORDERING SYSTEM PROVIDED HISTORY: SURGERY Preoperative evaluation. Distal humeral fracture. FINDINGS: Chronic pulmonary changes. No effusion, pneumothorax, or airspace consolidation. Calcified, tortuous aorta. Upper limits normal heart size. Degenerative changes of the shoulders. XR/XR chest 1V portable IMPRESSION: Chronic pulmonary change without focal airspace consolidation. D/ / Kali Sprague / Kali Sprague Interpreting Provider: Kali Sprague - Assessment and Plan (1) Humerus fracture Current Visit: Yes Status: Acute Assessment and plan: Acute humerus fracture sustained when she fell today while ambulating to the bathroom with her walker. Patient states she left the walker outside the bathroom, entered the bathroom and tripped and fell landing on her left arm. Patient denies LOC or striking head. Patient had recent surgery on RLE and was trying to protect her leg. Patient reports she felt a "pop" in her arm. Denies hx of falls. Reports 8/10 pain w/movement. Pain is alleviated w/rest. No recent cardiac w/u. 1V Portable CXR shows chronic pulmonary changes. No effusion, pneumothorax, or airspace consolidation. Calcified, tortuous aorta. Upper limits normal heart size. Degenerative changes of the shoulders. EKG shows sinus bradycardia. Echocardiogram ordered. PT/OT consults ordered for postsurgery status to assess for rehabilitation needs. Orthopedic surgery consult ordered by Felecia CARR and patient was discussed with Dr. Arreguin. NPO at midnight. Patient is high risk for complications and further morbidity d/t current humerus fx, hx of atrial fibrillation not on anticoagulation, chronic pulmonary changes and hx of COPD/tobacco abuse hx, calcified and tortuous aorta, lack of recent cardiac hx; risk factors of HTN, DM, and CKD; and advanced age. Inpatient. Qualifiers: Encounter type: initial encounter Humerus Location: supracondylar fracture without intercondylar fracture Fracture type: closed Fracture alignment: displaced Laterality: left Qualified Code(s): S42.412A - Displaced simple supracondylar fracture without intercondylar fracture of left humerus, initial encounter for closed fracture (2) History of atrial fibrillation without current medication Current Visit: Yes Status: Chronic Assessment and plan: Hx of chronic paroxysmal atrial fibrillation not on anticoagulation. Pt. reports she cannot take Coumadin or other anticoagulants d/t being supratherapeutic. Takes 81 mg ASA daily. EKG on admission shows sinus bradycardia. Continuous cardiac telemetry. Will monitor closely and administer antiarrhythmics as needed. (3) COPD (chronic obstructive pulmonary disease) Current Visit: Yes Status: Chronic Assessment and plan: Hx of chronic COPD. Continue pts. Symbicort. Supplemental O2 with titration and SPO2 monitoring. 1 view portable CXR shows chronic pulmonary change without focal airspace consolidation. Qualifiers: COPD type: unspecified COPD Qualified Code(s): J44.9 - Chronic obstructive pulmonary disease, unspecified (4) HTN (hypertension) Current Visit: Yes Status: Chronic Assessment and plan: Hx of chronic HTN. Monitor pt. and VS. Pt. is currently hypotensive and does not take HTN medications. Will add IVP hydralazine w/parameters if warranted. Qualifiers: Hypertension type: essential hypertension Qualified Code(s): I10 - Essential (primary) hypertension (5) CKD (chronic kidney disease) stage 3, GFR 30-59 ml/min Current Visit: Yes Status: Chronic Assessment and plan: Hx of CKD. Currently stage III w/GFR of 43 and creatinine of 1.19. Will use IV fluids judiciously and avoid nephrotoxins. Monitor I&O. (6) DM type 2 (diabetes mellitus, type 2) Current Visit: Yes Status: Chronic Assessment and plan: Hx of chronic type 2 DM. 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 States she doesn't use insulin or oral antihyperglycemic medications. BG 181 on admission. BG checks and SS insulin Q6HR while NPO. ACHS BG checks and SS insulin when no longer NPO. Hypoglycemic protocol ordered. 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 Pt. has hx of paroxysmal Afib not on anticoagulation. - Time Spent With Patient Total time spent is greater than 50% in coordination of care (as documented) at patient's floor/unit and/or counseling patient: Greater than 35 minutes
[2018-10-08 03:00] LABS: Hematocrit 28.9 % (35.3-44.9); Hemoglobin 9.1 g/dL (11.5-15.4); Mean Corpuscular HGB Conc 31.5 g/dL (31.6-35.5); Mean Corpuscular Hemoglobin 28.6 pg (28.0-33.3); Mean Corpuscular Volume 90.9 fL (83.0-100.0); Mean Platelet Volume 10.5 fL (9.4-12.4); Platelet Count 247 K/mcL (140-400); Red Blood Count 3.18 M/mcL (3.82-4.97); Red Cell Distribution Width 17.3 % (11.5-14.5); White Blood Count 9.6 K/mcL (4.3-11.1)
[2018-10-08 03:11] LABS: Prothrombin Time 11.8 Seconds (9.4-12.1)
[2018-10-08 03:13] LABS: Calcium 9.1 mg/dL (8.6-10.3); Chol/HDL Ratio 2.8 (0-4.9); Magnesium 2.1 mg/dL (1.6-2.6); Potassium 4.1 mEq/L (3.5-5.1)
[2018-10-08 03:14] LABS: Activated Partial Thrombo Time 25.2 Seconds (26.0-36.0)
[2018-10-08] MEDS ORDERED: *HR* Dextrose 50 % in Water (Syg) 50 ML SYRINGE IVP PRN ×2 (03:25→22:27)
[2018-10-08] MEDS ORDERED: Dextrose Gel 15 GM/37.5 ML TUBE PO PRN ×4 (03:25→22:27)
[2018-10-08] MEDS ORDERED: D5% in Water 1,000 ML IVC PRN ×2 (03:26→22:27)
[2018-10-08] MEDS: Insulin LISPRO 300 UNITS/3 ML VIAL SQ SCH ×2 (06:35→12:20)
[2018-10-08 06:49] LABS: Estimated Average Glucose 123 mg/dl
--- NOTE | 2018-10-08 07:16 | Orthopedic Consult Note ---
Date of Encounter: 10/08/18 Time of Encounter: 07:15 Assessment and Plan (1) Humerus fracture Current Visit: Yes Status: Acute I did have a long discussion with the patient regarding the diagnosis in the presence of the patient's daughter who is power of admitted attorneys. The patient has a left supracondylar extra-articular distal humerus fracture. My recommendation is for open reduction and internal fixation in order to reduce and stabilize the left distal humerus.The risks discussed included but were not limited to stiffness, bleeding, infection, blood clots, damage to neurovascular structures, tendons, ligaments, and bone. Also discussed was the risk of continued symptoms and possible need for further procedures. I did discuss the anesthesia risks including stroke, heart attack, and . I did discuss the reasonable, foreseeable postoperative course with the patient. The patient did wish to proceed and consent was obtained. Given the osteopenia of the patient I anticipate 4-6 weeks of postoperative casting. I did discuss the fracture seen at the tubercle of sublime which is nondisplaced and my recommendation is for closed management as I suspect it will heal without event when she is being immobilized for the distal humerus fracture postoperatively. I have reviewed each of the pertinent components of this chart and any other p ertinent medical component(s) including but not limited to pertinent application of the chief complaint, history of present illness, current medication, medical history, allergies, family history, medical history, surgical history, social history, review of systems, vital signs, and any other portion of the pertinent patient medical record directly or indirectly involved with this patient care that is pertinent based on my medical decision process. RAJ Kerns Qualifiers: Encounter type: initial encounter Humerus Location: supracondylar fracture without intercondylar fracture Fracture type: closed Fracture alignment: displaced Laterality: left Qualified Code(s): S42.412A - Displaced simple supracondylar fracture without intercondylar fracture of left humerus, initial encounter for closed fracture History of Present Illness HPI: Ms. Arroyo is a 83 year old female who is currently admitted to the hospitalist for left distal humerus fracture. She was just recovered from a right distal femur fracture and was recently discharged from her rehabilitation facility. She is a community ambulator with mild dementia but has a daughter who acts as her power of admitted attorneys. The patient did have a fall yesterday sustaining a left supracondylar distal humerus fracture. She is placed in a posterior long-arm splint and transferred to our facility for definitive management. She complains of sharp and achy pain localized to the left distal humerus region as expected. Symptoms are worse with use and movement and better with rest. No numbness, tingling, or any other associated signs or symptoms or other modifying factors. Past Med Surg Social Fam HX - Past Medical History Medical history: asthma, atrial fibrillation, cancer, COPD, diabetes, hypertension Additional medical history: breast/kidney cancer Psychiatric history: anxiety, depression - Past Surgical History Surgical History: breast surgery (Lumpectomy in left breast), hysterectomy, orthopedic, other, other (Nephrectomy of left kidney d/t kidney cancer) Additional surgical history: nephrectomy left side. lumpectomy. cholecystectomy. toe amputation - Social History Smoking Status: Former smoker Packs per day: 2 PPD - Reports quitting in 1996 Smokeless Tobacco Status: No Alcohol use: rarely Drug use: none - Family History Mother Race: Family Member Ethnicity: Non- Living Status: Age at : 74 Cause of : CVA Hx Family Cardiac Disorders: Yes (Strokes) Hx Family Endocrine Disorder: Yes (Diabetes) Sister Race: Family Member Ethnicity: Non- Living Status: Age at : 86 Cause of : Ovarian cancer Hx Family Cancer: Yes (Ovarian, Colon, Breast) Father History Unknown: Yes Race: Family Member Ethnicity: Non- Living Status: Medications and Allergies Alendronate Sodium 70 mg PO QWEEK 04/27/18 [History] Armodafinil [Nuvigil] 250 mg PO QAM 04/27/18 [History] Gabapentin [Neurontin] 100 mg PO DAILY 04/27/18 [History] Gemfibrozil [Lopid] 600 mg PO BID 04/27/18 [History] Ondansetron HCl [Zofran] 4 mg PO Q8HR PRN 04/27/18 [History] Albuterol Sulfate [Proair Hfa] 2 puff IH Q6H PRN 07/24/18 [History] Budesonide/Formoterol 160/4.5 [Symbicort 160/4.5] 2 puff IH BID 07/24/18 [History] Oxybutynin Chloride [Ditropan XL] 10 mg PO QPM 07/24/18 [History] Ascorbic Acid [Vitamin C] 500 mg PO DAILY 07/25/18 [History] Aspirin [Adult Aspirin Regimen] 81 mg PO DAILY 07/25/18 [History] Cholecalciferol (Vitamin D3) [Vitamin D3] 5,000 unit PO DAILY 07/25/18 [History] Cranberry Conc/C/Bacill Coag [Cranberry Tablet] 1 tab PO DAILY 07/25/18 [History] Krill/Om-3/Dha/Epa/Phospho/Ast [Maximum Red Krill [place]-3 Sfgl] 1 cap PO DAILY 07/25/18 [History] Non-Formulary Medication 1 tab PO BID 07/25/18 [History] Non-Formulary Medication 1 tab PO DAILY 07/25/18 [History] Non-Formulary Medication 1 tab PO DAILY 07/25/18 [History] Non-Formulary Medication 1 tab PO DAILY 07/25/18 [History] Non-Formulary Medication 1 tab PO DAILY 07/25/18 [History] Allergy/AdvReac Type Severity Reaction Status Date / Time methenamine [From Hiprex] Allergy Hives Verified 10/07/18 19:01 monosodium glutamate Allergy Anaphylaxis Verified 10/07/18 19:01 moxifloxacin [From Avelox] Allergy Anaphylaxis Verified 10/07/18 19:01 naproxen [From Naprosyn] Allergy Rash Verified 10/07/18 19:01 clarithromycin [From Biaxin] AdvReac Nausea Verified 10/07/18 19:01 pantoprazole [From Protonix] AdvReac Nausea Verified 10/07/18 19:01 All Systems Reviewed: Constitutional -The patient denies any fevers, chills, or feelings of illness Neurologic -The patient denies any numbness, tingling, or burning pains Physical Exam - Constitutional Vitals: Temp Pulse Resp BP Pulse Ox 97.8 F 68 18 103/65 95 10/08/18 06:32 10/08/18 06:32 10/08/18 06:32 10/08/18 06:32 10/08/18 06:32 Constitutional -Vitals reviewed -The patient is well developed and well nourished. -Mood is pleasant. -The patient is well groomed. Psychiatric -Mild dementia but able to answer questions appropriately. Respiratory: -Respiratory effort normal Abdomen: -Soft abdomen -Non tender -Non distended: Left upper extremity: -The patient is in a posterior long-arm splint which was not taken down for patient comfort. -Able to make an "OK" sign, cross the index and long fingers, and extend the thumb. -Sensation grossly intact to light touch throughout the median, radial, and ulnar distributions. -Fingers have good capillary refill. Right upper extremity: -No deformities. The overlying skin is intact. No obvious signs of acute trauma. -No tenderness to palpation throughout. -No significant pain with passive motion of the shoulder, elbow, wrist, and fingers within the limits of the bed. -Able to make an "OK" sign, cross the index and long fingers, and extend the thumb. -Sensation grossly intact to light touch throughout the median, radial, and ulnar distributions. -Radial pulse is present; Fingers have good capillary refill. Left lower extremity: -No deformities. The overlying skin is intact. No obvious signs of acute trauma. -No tenderness to palpation throughout. -No pain with passive motion of the hip, knee, ankle, and toes within the limits of the bed. -No pain with axial loading of the thigh. -Able to dorsiflex and plantarflex the ankle and toes. -Sensation is grossly intact to light touch throughout the sural, saphenous, superficial peroneal, and deep peroneal distributions. -Toes have good capillary refill. Right lower extremity: -No deformities. The overlying skin is intact. No obvious signs of acute trauma. -No tenderness to palpation throughout. -No pain with passive motion of the hip, knee, ankle, and toes within the limits of the bed. -No pain with axial loading of the thigh. -Able to dorsiflex and plantarflex the ankle and toes. -Sensation is grossly intact to light touch throughout the sural, saphenous, superficial peroneal, and deep peroneal distributions. -Toes have good capillary refill. Diagnostic Imaging: I did personally review and interpret x-rays of the left humerus and elbow which show a supracondylar left distal humerus fracture. CT scan confirms the same and also a nondisplaced fracture at the sublime tubercle of the proximal ulna. Right femur x-ray showed no change in position of her known healing distal femur fracture. Results - Labs Result Diagrams: 10/08/18 02:34 10/08/18 02:34 Labs: Abnormal lab results RBC 3.18 M/mcL (3.82-4.97) L 10/08/18 02:34 Hgb 9.1 g/dL (11.5-15.4) L 10/08/18 02:34 Hct 28.9 % (35.3-44.9) L 10/08/18 02:34 MCHC 31.5 g/dL (31.6-35.5) L 10/08/18 02:34 RDW 17.3 % (11.5-14.5) H 10/08/18 02:34 APTT 25.2 Seconds (26.0-36.0) L 10/08/18 02:34 BUN 36 mg/dL (8-23) H 10/08/18 02:34 Est GFR ( Amer) 52 (> 60) L 10/08/18 02:34 Est GFR (Non-Af Amer) 43 (> 60) L 10/08/18 02:34 BUN/Creatinine Ratio 30 (6-26) H 10/08/18 02:34 Glucose 181 mg/dL (70-105) H 10/08/18 02:34 POC Glucose 121 mg/dL (70-99) H 10/07/18 23:28 Hemoglobin A1c 5.9 % (-5.6) H 10/08/18 02:34 H & H 10/08/18 Range/Units 02:34 Hgb 9.1 L (11.5-15.4) g/dL Hct 28.9 L (35.3-44.9) % All other labs normal. Consult Discharge Plan - Plan Referrals: Merlin Gee MD [Primary Care Provider] -
[2018-10-08] MEDS ORDERED: Aspirin Enteric Coated 81 MG Tablet PO SCH (09:00)
--- NOTE | 2018-10-08 10:42 | Internal Med Progress Note ---
Hospitalist Progress Note - Encounter Date of Encounter: 10/08/18 Time of Encounter: 10:22 - Subjective Interval History: Ms gresham maintains she had no prodrome prior to the fall. She admits to ambulation with a walker and attributes the fall to be mechanical. Per orthopedic consult note she is scheduled for ORIF GEN: Denies fever, chills or malaise HEENT: Denies headache blurriness, or dysphagia RESP: Denies SOB or cough CV: Denies chest pain or palpitations GI: Denies Nausea, vomiting, diarrhea or constipation Reviewed current in hospital medications with modifications see orders Reviewed Routine labs - Exam Vitals: Temp Pulse Resp BP Pulse Ox 98.5 F 59 16 104/59 93 10/08/18 10:38 10/08/18 10:38 10/08/18 10:38 10/08/18 10:38 10/08/18 10:38 Exam: GEN: NAD, A&O x 3, Pleasant and conversant SKIN: [place] warm acyanotic not jaundice HEART: RRR, no murmurs LUNGS: CTA no wheeze or crackles, overall non labored ABDOMEN; Soft, non tender or distended, BS x 4 normactive EXT: No LE edema, Pedal pulses 1+, radial pulses 2+, left and held in flexion noted to be wrapped in Chad wrap PSYCH: Mood and affect is appropriate - Assessment and Plan (1) Humerus fracture Current Visit: Yes Status: Acute Assessment and Plan: She is scheduled for ORIF planned. Orthopedic surgeon she would likely need ECF referral for rehabilitation (2) DM type 2 (diabetes mellitus, type 2) Current Visit: Yes Status: Chronic Assessment and Plan: We will obtain hemoglobin A1c in the morning, insulin per protocol (3) DVT prophylaxis Current Visit: Yes Status: Acute Assessment and Plan: SCDs for DVT prophylaxis d/t impending surgical intervention for humerus fx. Pt. has hx of paroxysmal Afib not on anticoagulation. (4) COPD (chronic obstructive pulmonary disease) Current Visit: Yes Status: Chronic Assessment and Plan: As needed DuoNeb resume home inhalers (5) HTN (hypertension) Current Visit: Yes Status: Chronic Assessment and Plan: Normotensive (6) CKD (chronic kidney disease) stage 3, GFR 30-59 ml/min Current Visit: Yes Status: Chronic Assessment and Plan: Currently stage III w/GFR of 43 and creatinine of 1.19. Will use IV fluids judiciously and avoid nephrotoxins. Monitor I&O. (7) History of atrial fibrillation without current medication Current Visit: Yes Status: Chronic Assessment and Plan: not on anticoagulation. Pt. reports she cannot take Coumadin or other anticoagulants d/t being supratherapeutic. Takes 81 mg ASA daily. EKG on admission shows sinus bradycardia. Continuous cardiac telemetry. - Time Spent with Patient Total time spent is greater than 50% in coordination of care (as documented) at patient's floor/unit and/or counseling patient: Internal Medicine: Result - Labs CBC & Chem 7: 10/08/18 02:34 10/08/18 02:34 Labs: Short CBC 10/08/18 Range/Units 02:34 WBC 9.6 (4.3-11.1) K/mcL Hgb 9.1 L (11.5-15.4) g/dL Hct 28.9 L (35.3-44.9) % Plt Count 247 (140-400) K/mcL BMP 10/08/18 02:34 Sodium 138 Potassium 4.1 Chloride 105 Carbon Dioxide 24 BUN 36 H Creatinine 1.19 Glucose 181 H Calcium 9.1 - ABG Interpretation ABG results: PT/INR, D-dimer PT 11.8 Seconds (9.4-12.1) 10/08/18 02:34 - Impressions Impressions Chest X-Ray 10/08/18 02:01 IMPRESSION: Chronic pulmonary change without focal airspace consolidation. D/ / Klai Sprague / Kali Sprague Interpreting Provider: Kali Sprague Consult Discharge Plan - Plan Referrals: Merlin Gee MD [Primary Care Provider] - (1) Humerus fracture Qualifiers: Encounter type: initial encounter Humerus Location: supracondylar fracture without intercondylar fracture Fracture type: closed Fracture alignment: displaced Laterality: left Qualified Code(s): S42.412A - Displaced simple supracondylar fracture without intercondylar fracture of left humerus, initial encounter for closed fracture (2) DM type 2 (diabetes mellitus, type 2) Qualifiers: Diabetes mellitus mail service coordinator insulin use: without snf use Diabetes vania rosenthal complication status: without complication Qualified Code(s): E11.9 - Type 2 diabetes mellitus without complications (4) COPD (chronic obstructive pulmonary disease) Qualifiers: COPD type: unspecified COPD Qualified Code(s): J44.9 - Chronic obstructive pulmonary disease, unspecified (5) HTN (hypertension) Qualifiers: Hypertension type: essential hypertension Qualified Code(s): I10 - Essential (primary) hypertension
[2018-10-08] MEDS: Budesonide/Formoterol 160/4.5 1 PUFF INH IH SCH ×2 (10:54→22:01)
--- NOTE | 2018-10-08 13:50 | Electrocardiograph Report ---
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
[2018-10-08] MEDS ORDERED: NON-FORMULARY MEDICATION 1 EACH EACH (Alendronate Sodium 70 MG) PO SCH (14:30)
[2018-10-08] MEDS ORDERED: *HR* Propofol 200 MG/20 ML VIAL IVP ONE (15:45)
[2018-10-08] MEDS ORDERED: *HR* FentaNYL (PF) 100 MCG/2 ML VIAL ONE (15:45)
[2018-10-08] MEDS ORDERED: Ondansetron 4 MG/2 ML VIAL ONE (15:46)
[2018-10-08] MEDS ORDERED: Lidocaine -MPF 2% 2 ML VIAL ONE (15:46)
[2018-10-08] MEDS ORDERED: Dexamethasone 4 MG/ML VIAL ONE (15:46)
--- NOTE | 2018-10-08 16:06 | Anesthesia Evaluation PreOp ---
Date of Encounter: 10/08/18 Time of Encounter: 16:04 - Past History Planned Operation: ORIF L-distal radius Cardiac History: HTN, Arrhythmia (Paroxysmal AFib - + Baby ASA but otherwise NOT anticoagulated) Pulmonary History: Former smoker (2ppd x 40yrs. 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 Renal Ca s/p nephrectomy) Anesthesia History: No Prior Anesthetic Complications, Past Anesthesia (Breast surgery/L-breast Lumpectomy, HYster, Nephrectomy 2007) Alcohol Use: rarely Drug use: none Medications and Allergies Alendronate Sodium 70 mg PO QWEEK 04/27/18 [History] Armodafinil [Nuvigil] 250 mg PO QAM 04/27/18 [History] Gabapentin [Neurontin] 100 mg PO DAILY 04/27/18 [History] Gemfibrozil [Lopid] 600 mg PO BID 04/27/18 [History] Ondansetron HCl [Zofran] 4 mg PO Q8HR PRN 04/27/18 [History] Albuterol Sulfate [Proair Hfa] 2 puff IH Q6H PRN 07/24/18 [History] Budesonide/Formoterol 160/4.5 [Symbicort 160/4.5] 2 puff IH BID 07/24/18 [History] Oxybutynin Chloride [Ditropan XL] 10 mg PO QPM 07/24/18 [History] Ascorbic Acid [Vitamin C] 500 mg PO DAILY 07/25/18 [History] Aspirin [Adult Aspirin Regimen] 81 mg PO DAILY 07/25/18 [History] Cholecalciferol (Vitamin D3) [Vitamin D3] 5,000 unit PO DAILY 07/25/18 [History] Cranberry Conc/C/Bacill Coag [Cranberry Tablet] 1 tab PO DAILY 07/25/18 [History] Krill/Om-3/Dha/Epa/Phospho/Ast [Maximum Red Krill [place]-3 Sfgl] 1 cap PO DAILY 07/25/18 [History] Non-Formulary Medication 1 tab PO BID 07/25/18 [History] Non-Formulary Medication 1 tab PO DAILY 07/25/18 [History] Non-Formulary Medication 1 tab PO DAILY 07/25/18 [History] Non-Formulary Medication 1 tab PO DAILY 07/25/18 [History] Non-Formulary Medication 1 tab PO DAILY 07/25/18 [History] Allergy/AdvReac Type Severity Reaction Status Date / Time methenamine [From Hiprex] Allergy Hives Verified 10/07/18 19:01 monosodium glutamate Allergy Anaphylaxis Verified 10/07/18 19:01 moxifloxacin [From Avelox] Allergy Anaphylaxis Verified 10/07/18 19:01 naproxen [From Naprosyn] Allergy Rash Verified 10/07/18 19:01 clarithromycin [From Biaxin] AdvReac Nausea Verified 10/07/18 19:01 pantoprazole [From Protonix] AdvReac Nausea Verified 10/07/18 19:01 - Meds/Allergy Pre-op Review Medications Reviewed: Yes Allergies Reviewed: Yes Beta Blockers on Current Med List: No (None currently listed) Anesthesia Results - Labs 10/08/18 02:34 10/08/18 02:34 Impressions Echocardiogram 10/08/18 01:46 Impressions: LVEF 60-65%. Mild left ventricular diastolic dysfunction. Normal right ventricular structure and function. Mild tricuspid regurgitation. Mild pulmonic regurgitation. No pulmonary hypertension. Left Ventricular Wall Motion: Rest Echo Findings All wall segments showed normal motion. Findings: Study Quality * Technically adequate exam. ECG Findings * Sinus bradycardia. Left Ventricle * LVEF 60-65%. * Normal LV chamber size, wall thickness and function. * Mild left ventricular diastolic dysfunction. Right Ventricle * Normal right ventricular structure and function. Left Atrium * Moderately dilated left atrium. Right Atrium * Normal right atrial size. Mitral Valve * No mitral stenosis. * Mild mitral annular calcification * Doming of the anterior mitral valve leaflet. * Trace mitral regurgitation. Aortic Valve * No aortic regurgitation. * Trileaflet aortic valve. * No aortic stenosis. Tricuspid Valve * Normal tricuspid valve structure. * Mild tricuspid regurgitation. Pulmonic Valve * Pulmonic valve is not well visualized. * No pulmonic stenosis. * Mild pulmonic regurgitation. Pulmonary Artery * Pulmonary artery not well visualized. Aorta * Normally sized aortic root. Pericardium * There is no pericardial effusion present. Interatrial Septum * No evidence of PFO by color Doppler. IVC * The IVC is not well evaluated. Chest X-Ray 10/08/18 02:01 IMPRESSION: Chronic pulmonary change without focal airspace consolidation. D/ / Kali Sprague / Kali Sprague Interpreting Provider: Kali Sprague Laboratory Results 10/08/18 10/08/18 10/08/18 02:34 06:10 08:04 POC Glucose 149 H Est Mean Plasma Glucose 123 Hemoglobin A1c 5.9 H Blood Type AB POSITIVE Antibody Screen NEGATIVE - Imaging EKG: report reviewed (55bpm - SINUS BRADYCARDIA Electronically Signed On 2018 13:49:23 EDT by Juan Campoverde) Anesthesia Exam Vital Signs Temp Pulse Resp BP Pulse Ox 10/08/18 13:39 97.7 F 74 16 121/65 94 10/08/18 10:55 16 93 10/08/18 10:38 98.5 F 59 16 104/59 93 10/08/18 06:32 97.8 F 68 18 103/65 95 10/08/18 02:31 97.8 F 60 15 97/55 94 10/08/18 01:35 74 105/69 10/07/18 21:57 98.1 F 65 15 119/75 91 Intake and Output 10/08/18 10/08/18 10/08/18 07:59 15:59 23:59 Other: # Voids 1 Weight 58.9 kg Blood Glucose* 149 85 Patient Weight 10/08/18 23:59 Weight 58.9 kg Height: 5'2 Weight: 129# BMI = 24 NPO (# of Hours): MNOc - HEENT Pupil (Motor): Pupils equal, EOMI Mallampati: II Teeth: Edentulous Oral Opening: Greater than 3 - 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 LOC: Oriented 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 Motor: Normal RUE, Normal RLE, Normal LLE, Normal Face, Deficit LUE 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 Sensory: Normal: RUE, LUE, RLE, LLE, Face - Cardiac Rhythm: Regular Murmur: None - Pulmonary Breath Sounds: bilateral Clear Respiratory Effort: Symmetrical Anesthesia Assess/Plan ASA Score: 3 (Paroxysmal AFib, HTN, Chol, COPD, Anxiety/Depression, Stage 3 CKDz, Hx Breast & Kidney Ca) Level of consciousness: Cooperative, Oriented, Tranquil Anesthetic Plan: General Monitoring Plan: Standard Monitors Recovery Plan: PACU Anes Supervising Prov Stmt: Pt seen/evaluated, R&B Discussed, questions answered and consent obtained. Paula Cunningham MD
[2018-10-08] MEDS ORDERED: CeFAZolin Syr 2,000MG/20 ML 2,000 MG/20 ML SYRINGE IVPB ONE ×2 (16:22→22:27)
[2018-10-08] MEDS ORDERED: Acetaminophen IV 1,000 MG/100 ML INFUS..BTL ONE (16:27)
[2018-10-08] MEDS ORDERED: Famotidine 20 MG/2 ML VIAL ONE (16:27)
[2018-10-08] MEDS ORDERED: Insulin LISPRO 300 UNITS/3 ML VIAL SQ SCH ×2 (17:30→21:00)
[2018-10-08] MEDS ORDERED: Ipratropium/Albuterol Neb 3 ML IH PRN ×2 (19:19→22:27)
[2018-10-08] MEDS ORDERED: *HR* Promethazine 25 MG/ML VIAL IVP PRN ×2 (20:34→22:27)
[2018-10-08] MEDS ORDERED: Ondansetron 4 MG/2 ML VIAL IVP ONE ×2 (20:34→22:27)
[2018-10-08] MEDS: *HR* HYDROmorphone (PF) 1 MG/ML SYRINGE IVP PRN ×2 (20:46→20:57)
[2018-10-08] MEDS ORDERED: Ringers Solution, Lactated 1,000 ML ONE (20:56)
--- NOTE | 2018-10-08 20:58 | Orthopedic Operative Note ---
Date of procedure: 10/08/18 Procedure: OPERATIVE REPORT SURGEON: Jaime Arreguin MD PREOPERATIVE DIAGNOSIS: Left distal humerus fracture POSTOPERATIVE DIAGNOSIS: Left distal humerus fracture and nondisplaced olecranon fracture PROCEDURE: Open reduction and internal fixation of left distal humerus and left olecranon ANESTHESIA: Gen. anesthesia SPECIMENS: And in IMPLANTS: Synthes distal humeral plates and olecranon plate PREOPERATIVE NOTE The surgical plan was reviewed with the patient. The risks, benefits, alternati ves, and potential complications of this procedure were discussed with the patient including injury to veins, arteries, nerves, tendons, ligaments, and bone. Also discussed were the risks of infection, bleeding, pain, blood clots, the possible need for a blood transfusion, the possible need for further procedures, heart attack, stroke, and . Additional risks include malunion, nonunion, hardware failure, and refracture. All of this was explained in simple terms, and the patient verbalized understanding and wished to proceed. Consent was given to proceed with surgery. PROCEDURE: The patient was seen in the preoperative holding area where the identify and the consent were confirmed. The left elbow was marked. Final questions were answered. The patient was brought back to the operating room and placed supine on the operating room table. A huddle was performed with the patient and all vital surgical team members confirming patient identity, the correct procedure, and the correct operative site. General anesthesia was administered. The patient was placed in the right lateral decubitus position. The operative extremity was prepped and draped in the usual sterile fashion. A surgical time out was performed immediately preceding the incision with all personnel in the operating room to confirm patient identity, the correct operative site and extremity, correct radiographic studies, availability of appropriate surgical equipment, and agreement on the planned procedure. The limb was exsanguinated and the tourniquet was inflated. An extensile posterior longitudinal incision was made and dissection proceeded through the skin and subcutaneous tissue down to the triceps. Dissection proceeded bluntly along the medial side and the ulnar nerve was identified and decompressed through the cubital tunnel and protected with a vessel loop. Dissection then proceeded laterally to the lateral epicondylar region. The triceps was then elevated off the distal humerus taking care to identify and protect the radial nerve just superior to the brachioradialis origin. The fracture was identified and the hematoma was copiously irrigated. The fracture was provisionally fixed with K wires and the definitive medial plate was placed and fixed with a combination of cortical and locking screws. The posterolateral plate was then placed and fixed in similar fashion. After taking final x-rays there is noted to be a nondisplaced olecranon fracture. The decision was made to fix it to prevent displacement. The definitive olecranon plate was placed on the bone and fixed with a combination of cortical and locking screws. X-rays confirmed good alignment of the distal humerus and position of the hardware and good placement of the olecranon plate. The wound was copiously irrigated. The deep layer was closed with 0 Vicryl stitches on either side of the triceps. A 10-Polish drain was placed. The ulnar nerve was left in situ. After final irrigation the skin was closed with 0 Vicryl, 3-0 Vicryl sutures, and cheri. A soft, sterile dressing was applied followed by a posterior long-arm splint. The tourniquet was deflated at 120 minutes. The instrument, sponge, and needle counts were correct after wound closure. POST OPERATIVE PLAN: We will pull the drain tomorrow depending on output. We will keep in the posterior long-arm splint until 2 weeks postoperatively and I anticipate 2 weeks of casting given the patient's significant osteopenia. Was there an grooming assistant present: No Estimated blood loss (cc): 100
--- NOTE | 2018-10-08 21:48 | Anesthesia Evaluation Post Op ---
Date of Encounter: 10/08/18 Time of Encounter: 21:48 - Vital Signs Vital Signs: Vital Signs/O2 Sat, Most Current Temp Pulse Resp BP Pulse Ox 97.9 F 86 14 121/49 96 10/08/18 21:27 10/08/18 21:37 10/08/18 21:37 10/08/18 21:37 10/08/18 21:37 - Lungs Lungs: Clear Ascult./Percussion - Cardiovascular Regular Rate - Mental Status Mental Status: Alert & Oriented, Answers Appropriately - Pain Pain Scale: 0 Pain Scale used: Numeric (1 - 10) - Nausea Vomiting Nausea Vomiting: Not Present - Hydration Hydration: NPO, Has not voided - Discharge PostOp Status: Transfer Patient to floor
[2018-10-08] MEDS ORDERED: *HR* HYDROmorphone (PF) 1 MG/ML SYRINGE IVP PRN (22:27)
[2018-10-09] MEDS ORDERED: ceFAZolin 2,000 MG in 0.9 % Sodium Chloride 100 ML IVPB SCH
[2018-10-09] MEDS ORDERED: Insulin LISPRO 300 UNITS/3 ML VIAL SQ SCH
[2018-10-09] MEDS ORDERED: Acetaminophen IV 500 MG/50 ML INFUS..BTL IVPB ONE (03:38)
[2018-10-09 05:23] LABS: Calcium 8.2 mg/dL (8.6-10.3); Potassium 3.7 mEq/L (3.5-5.1)
[2018-10-09 05:53] LABS: Basophils % 0.1 %; Hematocrit 25.7 % (35.3-44.9); Hemoglobin 7.8 g/dL (11.5-15.4); Immature Granulocytes % 0.7 % (0-4); Lymphocytes # 0.4 K/mcL (0.6-4.6); Lymphocytes % 2.1 %; Mean Corpuscular HGB Conc 30.4 g/dL (31.6-35.5); Mean Corpuscular Hemoglobin 29.8 pg (28.0-33.3); Mean Corpuscular Volume 98.1 fL (83.0-100.0); Mean Platelet Volume 11.1 fL (9.4-12.4); Monocytes # 0.9 K/mcL (0.0-1.3); Monocytes % 4.6 %; Neutrophils # 18.5 K/mcL (1.6-8.9); Platelet Count 249 K/mcL (140-400); Red Blood Count 2.62 M/mcL (3.82-4.97); Red Cell Distribution Width 17.6 % (11.5-14.5); Segmented Neutrophils % 92.5 %
--- NOTE | 2018-10-09 07:35 | Orthopedics Progress Note ---
Date of Encounter: 10/09/18 Time of Encounter: 07:32 - Assessment and Plan (1) Humerus fracture Current Visit: Yes Status: Acute Qualifiers: Encounter type: initial encounter Humerus Location: supracondylar fracture without intercondylar fracture Fracture type: closed Fracture alignment: displaced Laterality: left Qualified Code(s): S42.412A - Displaced simple supracondylar fracture without intercondylar fracture of left humerus, initial encounter for closed fracture Subjective Interval history: S: The patient is resting comfortably in bed Drowsy but arousable Pain well-controlled O: Afebrile on the vital signs are stable Posterior long-arm splint in place She had about 200 mL of serosanguineous drainage overnight and the CODY The patient can actively flex and extend all digits, extend the thumb, cross the index and long fingers, make an okay sign, and oppose the thumb. The fingertips are all sensate and well-perfused. X-rays of the left elbow show ORIF of the distal humerus and olecranon fracture P: We will maintain the drain at least until tomorrow given the output Nonweightbearing to the left upper extremity We will transfuse 1 unit of packed red blood cells due to acute blood loss anemia from surgery Ayon out today We will hold off on chemical DVT prophylaxis for now given the drainage. Continue SCDs. Objective Vital signs: Vital Signs Temp Pulse Resp BP Pulse Ox 10/09/18 03:37 98.6 F 83 15 104/64 100 10/09/18 00:05 98.4 F 82 14 110/84 96 10/08/18 23:00 98.7 F 86 16 107/76 10/08/18 22:30 98.3 F 89 16 106/68 95 10/08/18 22:00 98.2 F 94 16 108/72 96 10/08/18 21:52 98.1 F 84 12 117/44 97 10/08/18 21:37 86 14 121/49 96 10/08/18 21:27 97.9 F 84 12 120/47 95 10/08/18 21:17 87 14 124/49 96 10/08/18 21:07 86 13 129/45 94 10/08/18 20:57 98.1 F 86 18 133/50 95 10/08/18 20:47 87 24 126/52 97 10/08/18 20:37 82 24 128/58 96 10/08/18 20:27 98.5 F 97 21 135/60 93 10/08/18 13:39 97.7 F 74 16 121/65 94 10/08/18 10:55 16 93 10/08/18 10:38 98.5 F 59 16 104/59 93 Intake and Output 10/08/18 10/08/18 10/09/18 15:59 23:59 07:59 Output Total 210 / 210 345 / 345 Balance -210 / -210 -345 / -345 Output: Estimated Blood Loss 100 / 100 Catheter 200 / 200 Wound Drainage 110 / 110 145 / 145 Left Shoulder 145 / 145 Other: # Voids 1 Weight 58.7 kg Blood Glucose* 85 127 Patient Weight 10/09/18 23:59 Weight 58.7 kg - Labs CBC & BMP: 10/09/18 05:40 10/09/18 04:45 Labs: Abnormal lab results WBC 20.0 K/mcL (4.3-11.1) H D 10/09/18 05:40 RBC 2.62 M/mcL (3.82-4.97) L 10/09/18 05:40 Hgb 7.8 g/dL (11.5-15.4) L 10/09/18 05:40 Hct 25.7 % (35.3-44.9) L 10/09/18 05:40 MCHC 30.4 g/dL (31.6-35.5) L 10/09/18 05:40 RDW 17.6 % (11.5-14.5) H 10/09/18 05:40 Neutrophils # 18.5 K/mcL (1.6-8.9) H 10/09/18 05:40 Lymphocytes # 0.4 K/mcL (0.6-4.6) L 10/09/18 05:40 APTT 25.2 Seconds (26.0-36.0) L 10/08/18 02:34 Chloride 110 mEq/L (98-107) H 10/09/18 04:45 Carbon Dioxide 14 mEq/L (23-29) L 10/09/18 04:45 BUN 36 mg/dL (8-23) H 10/09/18 04:45 Creatinine 1.28 mg/dL (0.60-1.20) H 10/09/18 04:45 Est GFR ( Amer) 48 (> 60) L 10/09/18 04:45 Est GFR (Non-Af Amer) 40 (> 60) L 10/09/18 04:45 BUN/Creatinine Ratio 28 (6-26) H 10/09/18 04:45 Glucose 126 mg/dL (70-105) H 10/09/18 04:45 POC Glucose 149 mg/dL (70-99) H 10/08/18 06:10 Hemoglobin A1c 5.9 % (-5.6) H 10/08/18 02:34 Calcium 8.2 mg/dL (8.6-10.3) L 10/09/18 04:45 Consult Discharge Plan - Plan Referrals: Merlin Gee MD [Primary Care Provider] -
[2018-10-09] MEDS: Budesonide/Formoterol 160/4.5 1 PUFF INH IH SCH ×2 (07:47→22:56)
[2018-10-09] MEDS: Aspirin Enteric Coated 81 MG Tablet PO SCH (08:05)
[2018-10-09] MEDS: Gabapentin 100 MG CAPSULE PO SCH (08:06)
[2018-10-09] MEDS: Ascorbic Acid 500 MG TABLET PO SCH (08:06)
[2018-10-09] MEDS: Cholecalciferol (D-3) 1,000 UNIT (25MCG) TABLET PO SCH (08:06)
[2018-10-09] MEDS: Insulin LISPRO 300 UNITS/3 ML VIAL SQ SCH ×4 (08:19→23:37)
[2018-10-09] MEDS ORDERED: Ascorbic Acid 500 MG TABLET PO SCH (09:00)
[2018-10-09] MEDS ORDERED: Cholecalciferol (D-3) 1,000 UNIT (25MCG) TABLET PO SCH (09:00)
[2018-10-09] MEDS ORDERED: Gabapentin 100 MG CAPSULE PO SCH (09:00)
[2018-10-09 09:53] LABS: % Iron Saturation 4 % (15-50); Iron 11 mcg/dL (50-170); Transferrin 180 mg/dL (203-362)
[2018-10-09 10:12] LABS: Ferritin 141 ng/mL (10-120)
[2018-10-09 10:18] LABS: Folate 7.9 ng/mL (3.0-16.0)
[2018-10-09 10:50] LABS: Bilirubin,Urine Negative (Negative); Blood,Urine Small (Negative); Clarity,Urine Cloudy (Clear); Color,Urine Yellow (Yellow); Glucose,Urine (UA) Normal (Normal); Ketones,Urine Trace mg/dL (Negative); Leukocyte Esterase,Urine Moderate (Negative); Nitrite,Urine Negative (Negative); PH,Urine 5.5 pH Units (5.0-8.0); Protein,Urine 30 mg/dL (Neg-Trace); Specific Gravity,Urine 1.021 (1.010-1.025); Urobilinogen,Urine Normal (Normal)
[2018-10-09 10:53] LABS: Bacteria,Urine None Seen per hpf (None-Few); Hyaline Casts,Urine Few per lpf (None-Few); RBC,Urine 0-3 per hpf (0-3); Squamous Epithelial Cell,Urine Moderate per lpf (None-Few)
[2018-10-09 11:09] LABS: WBC,Urine 30-50 per hpf (0-3)
[2018-10-09] MEDS ORDERED: 0.9 % Sodium Chloride 500 ML ONE (11:57)
[2018-10-09] MEDS: *HR* OxyCODONE Immed Rel 5 MG TABLET PO PRN (12:16)
--- NOTE | 2018-10-09 15:07 | Orthopedics Progress Note ---
Date of Encounter: 10/09/18 Time of Encounter: 15:04 - Assessment and Plan (1) Humerus fracture Current Visit: Yes Status: Acute Qualifiers: Encounter type: initial encounter Humerus Location: supracondylar fracture without intercondylar fracture Fracture type: closed Fracture alignment: displaced Laterality: left Qualified Code(s): S42.412A - Displaced simple supracondylar fracture without intercondylar fracture of left humerus, initial encounter for closed fracture Subjective Interval history: S: The patient is resting comfortably in bed Pain well-controlled O: Afebrile on the vital signs are stable Posterior long-arm splint in place 65 mL in drain this shift. The patient can actively flex and extend all digits, extend the thumb, cross the index and long fingers, make an okay sign, and oppose the thumb. The fingertips are all sensate and well-perfused. P: Will pull drain when output < 50 mL per shift Nonweightbearing to the left upper extremity Hold chemical DVT prophylaxis until drain out. Continue SCDs Objective Vital signs: Vital Signs Temp Pulse Resp BP Pulse Ox 10/09/18 12:22 97.4 F L 70 18 115/58 95 10/09/18 12:07 97.9 F 71 18 104/49 10/09/18 07:49 20 96 10/09/18 07:41 97.6 F 76 20 117/62 96 10/09/18 03:37 98.6 F 83 15 104/64 100 10/09/18 00:05 98.4 F 82 14 110/84 96 10/08/18 23:00 98.7 F 86 16 107/76 10/08/18 22:30 98.3 F 89 16 106/68 95 10/08/18 22:00 98.2 F 94 16 108/72 96 10/08/18 21:52 98.1 F 84 12 117/44 97 10/08/18 21:37 86 14 121/49 96 10/08/18 21:27 97.9 F 84 12 120/47 95 10/08/18 21:17 87 14 124/49 96 10/08/18 21:07 86 13 129/45 94 10/08/18 20:57 98.1 F 86 18 133/50 95 10/08/18 20:47 87 24 126/52 97 10/08/18 20:37 82 24 128/58 96 10/08/18 20:27 98.5 F 97 21 135/60 93 Intake and Output 10/08/18 10/09/18 10/09/18 23:59 07:59 15:59 Intake Total 100 / 1300 1200 / 1300 Output Total 210 / 210 345 / 375 30 / 375 Balance -210 / -210 -245 / 925 1170 / 925 Intake: IV Fluids 100 / 1300 1200 / 1300 0.9 % Sodium Chloride 1,000 ML 1000 / 1000 @ 75 mls/hr IVC .[id number] [facility] Rx #:[id number] Ofirmev 1,000 mg/100 ml 500 mg 100 / 100 In 50 ml @ 200 mls/hr IVPB ONCE ONE Rx#:[id number] Ancef 2,000 MG In 0.9 % Sodium 100 / 200 100 / 200 Chloride 100 ML @ 200 mls/hr IVPB Q8HR [facility] Rx#:[id number] Blood Product 0 / 0 Rbcs Leuko Poor As-1 Unit 0 / 0 [id number] Output: Estimated Blood Loss 100 / 100 Catheter 200 / 200 Wound Drainage 110 / 110 145 / 175 30 / 175 Left Shoulder 145 / 175 30 / 175 Other: Weight 58.7 kg Blood Glucose* 127 123 151 Patient Weight 10/09/18 23:59 Weight 58.7 kg - Labs CBC & BMP: 10/09/18 05:40 10/09/18 04:45 Labs: Abnormal lab results WBC 20.0 K/mcL (4.3-11.1) H D 10/09/18 05:40 RBC 2.62 M/mcL (3.82-4.97) L 10/09/18 05:40 Hgb 7.8 g/dL (11.5-15.4) L 10/09/18 05:40 Hct 25.7 % (35.3-44.9) L 10/09/18 05:40 MCHC 30.4 g/dL (31.6-35.5) L 10/09/18 05:40 RDW 17.6 % (11.5-14.5) H 10/09/18 05:40 Neutrophils # 18.5 K/mcL (1.6-8.9) H 10/09/18 05:40 Lymphocytes # 0.4 K/mcL (0.6-4.6) L 10/09/18 05:40 APTT 25.2 Seconds (26.0-36.0) L 10/08/18 02:34 Chloride 110 mEq/L (98-107) H 10/09/18 04:45 Carbon Dioxide 14 mEq/L (23-29) L 10/09/18 04:45 BUN 36 mg/dL (8-23) H 10/09/18 04:45 Creatinine 1.28 mg/dL (0.60-1.20) H 10/09/18 04:45 Est GFR ( Amer) 48 (> 60) L 10/09/18 04:45 Est GFR (Non-Af Amer) 40 (> 60) L 10/09/18 04:45 BUN/Creatinine Ratio 28 (6-26) H 10/09/18 04:45 Glucose 126 mg/dL (70-105) H 10/09/18 04:45 POC Glucose 123 mg/dL (70-99) H 10/09/18 07:56 Hemoglobin A1c 5.9 % (-5.6) H 10/08/18 02:34 Calcium 8.2 mg/dL (8.6-10.3) L 10/09/18 04:45 Iron 11 mcg/dL (50-170) L 10/09/18 09:00 % Saturation 4 % (15-50) L 10/09/18 09:00 Transferrin 180 mg/dL (203-362) L 10/09/18 09:00 Ferritin 141 ng/mL (10-120) H 10/09/18 09:00 Urine Clarity Cloudy (Clear) A 10/09/18 10:30 Urine Protein 30 mg/dL (Neg-Trace) H 10/09/18 10:30 Urine Ketones Trace mg/dL (Negative) H 10/09/18 10:30 Urine Blood Small (Negative) H 10/09/18 10:30 Ur Leukocyte Esterase Moderate (Negative) H 10/09/18 10:30 Urine Microscopic WBC 30-50 per hpf (0-3) H 10/09/18 10:30 Ur Squamous Epith Cells Moderate per lpf (None-Few) H 10/09/18 10:30 Ur Culture Indicated? YES (NO) A 10/09/18 10:30 Crossmatch See Detail 10/08/18 08:04 Consult Discharge Plan - Plan Additional Instructions: ASSISTED DISCHARGE INSTRUCTIONS Dr. Arreguin PROCEDURE PERFORMED Open reduction and internal fixation of the left distal humerus and olecranon Incision care Keep the splint and dressing on at all times. Do not take off or get wet or dirty. Weight bearing status -Nonweightbearing to the left upper extremity. -Resume therapy for right lower extremity per Dr. Benito' instructions. Medications -Pain medication per the discharging medical doctor -Enteric coated aspirin 325 mg by mouth daily for 28 days from the date of the surgery. Other -Knee high PENNY hose 23 hours per day -Sequential compression devices to the calves while in bed. -Consult physical and occupational therapy for mobilization. -Up to chair with assistance at least twice per day. -Follow up with your primary care physician to discuss testing for bone mineral density. Follow-up with Dr. Arreguin at the office 2 weeks from the surgery date for a post operative evaluation. Call the office at [phone] to schedule appointment. Referrals: Merlin Gee MD [Primary Care Provider] -
--- NOTE | 2018-10-09 15:43 | Internal Med Progress Note ---
Hospitalist Progress Note - Encounter Date of Encounter: 10/09/18 Time of Encounter: 15:41 - Subjective Interval History: Ms Arroyo is status post ORIF of the left distal humerus and left olecranon yesterday evening, this morning labs reveals leukocytosis and anemia. Patient is otherwise asymptomatic although complaining of pain of the left upper extre mity. GEN: Denies fever, chills or malaise HEENT: Denies headache blurriness, or dysphagia RESP: Denies SOB or cough CV: Denies chest pain or palpitations GI: Denies Nausea, vomiting, diarrhea or constipation Reviewed current in hospital medications with modifications see orders Reviewed Routine labs - Exam Vitals: Temp Pulse Resp BP Pulse Ox 99.6 F 73 18 119/56 95 10/09/18 15:32 10/09/18 15:32 10/09/18 15:32 10/09/18 15:32 10/09/18 15:32 Exam: GEN: NAD, A&O x 3, Pleasant and conversant SKIN: [place] warm acyanotic not jaundice HEART: RRR, no murmurs LUNGS: CTA no wheeze or crackles, overall non labored ABDOMEN; Soft, non tender or distended, BS x 4 normactive EXT: No LE edema, Pedal pulses 1+, radial pulses 2+, left and held in flexion noted to be wrapped in Chad wrap and in a sling PSYCH: Mood and affect is appropriate - Assessment and Plan (1) Leukocytosis Current Visit: Yes Status: Acute Assessment and Plan: WBC increased from 9.6 yesterday to 20 today initially thought to be reactive from surgery however this afternoon patient is having some low-grade fevers, chest x-ray was normal and UA does reveal pyuria although she denies being symptomatic will initiate empiric antibiotics with ceftriaxone with hopes of de- escalating antibiotics within the next 48 hours urine cultures is pending (2) Humerus fracture Current Visit: Yes Status: Acute Assessment and Plan: Status post ORIF. Orthopedic surgeon she would likely need ECF referral for rehabilitation (3) Pyuria Current Visit: Yes Status: Acute Assessment and Plan: She denies dysuria, ortho discontinued Ayon UA does reveal moderate leukocyte esterase negative nitrite cultures is pending given her leukocytosis start empric antibiotics with intention of dc in next 48 hours (4) DM type 2 (diabetes mellitus, type 2) Current Visit: Yes Status: Chronic Assessment and Plan: A1c 5.9, POC 85-149 insulin per protocol (5) DVT prophylaxis Current Visit: Yes Status: Acute Assessment and Plan: SCDs for DVT prophylaxis d/t impending surgical intervention for humerus fx. Pt. has hx of paroxysmal Afib not on anticoagulation. (6) COPD (chronic obstructive pulmonary disease) Current Visit: Yes Status: Chronic Assessment and Plan: As needed DuoNeb resume Symbicort (7) HTN (hypertension) Current Visit: Yes Status: Chronic Assessment and Plan: Normotensive (8) CKD (chronic kidney disease) stage 3, GFR 30-59 ml/min Current Visit: Yes Status: Chronic Assessment and Plan: Serum creatinine trended up 1.19-1.28, likely prerenal from hypoperfusion secondary to acute blood loss. We will initiate gentle hydration She is +1 L (9) History of atrial fibrillation without current medication Current Visit: Yes Status: Chronic Assessment and Plan: not on anticoagulation. Pt. reports she cannot take Coumadin or other anticoagulants d/t being supratherapeutic. Takes 81 mg ASA daily. - Time Spent with Patient Total time spent is greater than 50% in coordination of care (as documented) at patient's floor/unit and/or counseling patient: Internal Medicine: Result - Labs CBC & Chem 7: 10/09/18 05:40 10/09/18 04:45 Labs: Short CBC 10/09/18 Range/Units 05:40 WBC 20.0 H D (4.3-11.1) K/mcL Hgb 7.8 L (11.5-15.4) g/dL Hct 25.7 L (35.3-44.9) % Plt Count 249 (140-400) K/mcL Neutrophils # 18.5 H (1.6-8.9) K/mcL BMP 10/09/18 04:45 Sodium 140 Potassium 3.7 Chloride 110 H Carbon Dioxide 14 L BUN 36 H Creatinine 1.28 H Glucose 126 H Calcium 8.2 L Urine 10/09/18 Range/Units 10:30 Urine Color Yellow (Yellow) Urine Clarity Cloudy A (Clear) Urine pH 5.5 (5.0-8.0) pH Units Ur Specific [place] 1.021 (1.010-1.025) Urine Protein 30 H (Neg-Trace) mg/dL Urine Glucose (UA) Normal (Normal) mg/dL - ABG Interpretation ABG results: PT/INR, D-dimer PT 11.8 Seconds (9.4-12.1) 10/08/18 02:34 - Impressions Impressions Elbow X-Ray 10/08/18 16:55 IMPRESSION: Intraprocedural fluoroscopic spot images as above. See separate procedure report for more information. D/ / Shayan Paul MD / Shayan Paul MD Interpreting Provider: Shayan Paul MD Fluoroscopy 10/08/18 16:55 IMPRESSION: Intraprocedural fluoroscopic spot images as above. See separate procedure report for more information. D/ / Shayan Paul MD / Shayan Paul MD Interpreting Provider: Shayan Paul MD Chest X-Ray 10/09/18 08:36 IMPRESSION: 1. Emphysema. No superimposed radiographic finding to account for patient's leukocytosis. D/ / Roddy Chu MD / Roddy Chu MD Interpreting Provider: Roddy Chu MD Consult Discharge Plan - Plan Additional Instructions: [facility] DISCHARGE INSTRUCTIONS Dr. Arreguin PROCEDURE PERFORMED Open reduction and internal fixation of the left distal humerus and olecranon Incision care Keep the splint and dressing on at all times. Do not take off or get wet or dirty. Weight bearing status -Nonweightbearing to the left upper extremity. -Resume therapy for right lower extremity per Dr. Benito' instructions. Medications -Pain medication per the discharging medical doctor -Enteric coated aspirin 325 mg by mouth daily for 28 days from the date of the surgery. Other -Knee high PENNY hose 23 hours per day -Sequential compression devices to the calves while in bed. -Consult physical and occupational therapy for mobilization. -Up to chair with assistance at least twice per day. -Follow up with your primary care physician to discuss testing for bone mineral density. Follow-up with Dr. Arreguin at the office 2 weeks from the surgery date for a post operative evaluation. Call the office at [phone] to schedule appointment. Referrals: Merlin Gee MD [Primary Care Provider] - (2) Humerus fracture Qualifiers: Encounter type: initial encounter Humerus Location: supracondylar fracture without intercondylar fracture Fracture type: closed Fracture alignment: displaced Laterality: left Qualified Code(s): S42.412A - Displaced simple supracondylar fracture without intercondylar fracture of left humerus, initial encounter for closed fracture (4) DM type 2 (diabetes mellitus, type 2) Qualifiers: Diabetes mellitus mcc insulin use: without mcc use Diabetes mellitus complication status: without complication Qualified Code(s): E11.9 - Type 2 diabetes mellitus without complications (6) COPD (chronic obstructive pulmonary disease) Qualifiers: COPD type: unspecified COPD Qualified Code(s): J44.9 - Chronic obstructive pulmonary disease, unspecified (7) HTN (hypertension) Qualifiers: Hypertension type: essential hypertension Qualified Code(s): I10 - Essential (primary) hypertension
[2018-10-09] MEDS ORDERED: 0.9 % Sodium Chloride 1,000 ML IVC SCH (16:00)
[2018-10-09] MEDS ORDERED: Acetaminophen IV 1,000 MG/100 ML INFUS..BTL IVPB ONE (16:37)
[2018-10-09] MEDS: cefTRIAXone 1,000 MG in Water for inj. (sterile) 10 ML IVP SCH (17:05)
[2018-10-09 17:34] LABS: Hematocrit 24.7 % (35.3-44.9)
[2018-10-09] MEDS: ceFAZolin 1,000 MG in 0.9 % Sodium Chloride Mini Bag 100 ML IVPB SCH (18:01)
[2018-10-09] MEDS: Acetaminophen 325 MG TABLET PO PRN (21:23)
[2018-10-09 22:12] LABS: Hematocrit 23.3 % (35.3-44.9); Hemoglobin 7.5 g/dL (11.5-15.4)
[2018-10-10] MEDS: Acetaminophen 325 MG TABLET PO PRN ×2 (04:09→15:25)
[2018-10-10 04:23] LABS: Basophils % 0.2 %; Hematocrit 23.7 % (35.3-44.9); Hemoglobin 7.4 g/dL (11.5-15.4); Immature Granulocytes % 0.6 % (0-4); Lymphocytes # 0.9 K/mcL (0.6-4.6); Lymphocytes % 9.4 %; Mean Corpuscular HGB Conc 31.2 g/dL (31.6-35.5); Mean Corpuscular Hemoglobin 30.5 pg (28.0-33.3); Mean Corpuscular Volume 97.5 fL (83.0-100.0); Mean Platelet Volume 10.7 fL (9.4-12.4); Monocytes # 0.8 K/mcL (0.0-1.3); Monocytes % 8.3 %; Neutrophils # 8.1 K/mcL (1.6-8.9); Platelet Count 182 K/mcL (140-400); Red Blood Count 2.43 M/mcL (3.82-4.97); Red Cell Distribution Width 16.8 % (11.5-14.5); Segmented Neutrophils % 81.5 %
[2018-10-10 04:24] LABS: White Blood Count 9.9 K/mcL (4.3-11.1)
[2018-10-10 04:52] LABS: Calcium 7.8 mg/dL (8.6-10.3); Potassium 3.2 mEq/L (3.5-5.1)
[2018-10-10] MEDS: *HR* OxyCODONE Immed Rel 5 MG TABLET PO PRN ×3 (05:54→23:22)
[2018-10-10] MEDS: ceFAZolin 1,000 MG in 0.9 % Sodium Chloride Mini Bag 100 ML IVPB SCH (05:55)
[2018-10-10] MEDS: Insulin LISPRO 300 UNITS/3 ML VIAL SQ SCH ×4 (09:10→20:32)
[2018-10-10] MEDS: Ascorbic Acid 500 MG TABLET PO SCH (09:22)
[2018-10-10] MEDS: traMADol 50 MG TABLET PO PRN (09:23)
[2018-10-10] MEDS: Aspirin Enteric Coated 81 MG Tablet PO SCH (09:23)
[2018-10-10] MEDS: Gabapentin 100 MG CAPSULE PO SCH (09:23)
[2018-10-10] MEDS: cefTRIAXone 1,000 MG in Water for inj. (sterile) 10 ML IVP SCH (09:24)
[2018-10-10] MEDS: Budesonide/Formoterol 160/4.5 1 PUFF INH IH SCH ×2 (09:59→21:18)
[2018-10-10] MEDS: Cholecalciferol (D-3) 1,000 UNIT (25MCG) TABLET PO SCH (10:31)
[2018-10-10 11:38] LABS: Alanine Aminotransferase < 3 Units/L (7-52); Albumin 2.9 g/dL (3.5-5.7); Albumin/Globulin Ratio 1.2 (1.1-2.2); Alkaline Phosphatase 69 Units/L (34-104); Aspartate Amino Transferase 19 Units/L (13-39); Bilirubin,Indirect 0.2 mg/dL (0.0-1.2); Bilirubin,Total 0.2 mg/dL (0.3-1.0); Globulin 2.5 g/dL (2.4-3.5); Total Protein 5.4 g/dL (6.4-8.9)
[2018-10-10 12:47] LABS: Hematocrit 26.6 % (35.3-44.9); Hemoglobin 8.3 g/dL (11.5-15.4)
--- NOTE | 2018-10-10 13:08 | Internal Med Progress Note ---
Hospitalist Progress Note - Encounter Date of Encounter: 10/10/18 Time of Encounter: 13:05 - Subjective Interval History: Mrs. Arroyo is complaining of pain and discomfort left upper extremity. She also reports stinging sensation she is postop day 2 ORIF of the left upper extremity. Yesterday her daughter stated that she is prone to developing a UTI and that she has one kidney status post nephrectomy. He was noted on telemetry to have tachycardia with pulse as high as 120s to 130s as such an EKG has been ordered which revealed atrial flutter GEN: Denies fever, chills or malaise HEENT: Denies headache blurriness, or dysphagia RESP: Denies SOB or cough CV: Denies chest pain but admits to palpitations GI: Denies Nausea, vomiting, diarrhea or constipation Reviewed current in hospital medications with modifications see orders Reviewed Routine labs - Exam Vitals: Temp Pulse Resp BP Pulse Ox 98.1 F 97 17 102/59 95 10/10/18 11:38 10/10/18 11:38 10/10/18 11:38 10/10/18 11:38 10/10/18 11:38 Exam: GEN: NAD, A&O x 3, Pleasant and conversant SKIN: [place] warm acyanotic not jaundice HEART: RRR but tachycardic, grade 3/6 systolic murmur appreciated today LUNGS: Diminished but no wheeze minima crackles, overall non labored ABDOMEN; Soft, non tender or distended, BS x 4 normactive EXT: No LE edema, Pedal pulses 1+, radial pulses 2+, left and held in flexion noted to be wrapped in Chad wrap and in a sling PSYCH: Mood and affect is appropriate - Assessment and Plan (1) Sepsis due to gram-negative UTI Current Visit: Yes Status: Acute Assessment and Plan: Given the finding of gram-negative UTI her febrile response yesterday, coupled with the leukocytosis, it appears patient was sepsis on initial presentation. She has been afebrile but in the setting of IV tylenol use for pain which could have maxed her febrile response. Leukocytosis trended down from 20-9.9 today. We will obtain blood cultures although now in the setting of already antibiotic with ceftriaxone. She was on post surgical antibiotics too with cefazolin. Clinically she appears improved compared to yesterday. We will continue to monitor clinically correlate. (2) UTI (urinary tract infection) with pyuria Current Visit: Yes Status: Acute Assessment and Plan: After talking to her daughter yesterday appears patient has a history of frequent UTI. We will continue ceftriaxone urine culture revealed gram-negative rods await sensitivity (3) Acute blood loss anemia Current Visit: Yes Status: Acute Assessment and Plan: Status post ORIF case was discussed with Dr. Lyn, he stated that he did not appreciate any large vessel trauma from the fracture but patient did have hematoma he was also updated on her recent development. Upper extremity drain continues to have serosanguineous/bloody output. He has instructed the nurse to disconitue CODY drain the left upper extremity with hopes of eventual tamponade. High hemoglobin improved from 7.5 to 8 status post 1 unit of packed red blood cell yesterday, trended down to 7.4 and is now 8.3, anemia work up was unyielding with normal levels of ferritin B12 and folate (4) Atrial flutter with rapid ventricular response Current Visit: Yes Status: Acute Assessment and Plan: prior history of atrial fibrillation not on anticoagulation due to bleed. She was noted on telemetry to be tachycardic and EKG stat revealed atrial flutter with rapid ventricular response today which rate noted on telemetry 120s to 130s. We will obtain a initial troponin given that she is complaining of tingling sensation in the left upper extremity, cardiology have been consulted given the complexity of acute illness-recent ORIF hematoma of left upper extremity. case was discussed with the television cabinet finisher dog daycare provider he recommended discussing with the orthopedic physician. Per physician this afternoon with Dr. Lyn given that patient still appears to have active left upper extremity hematoma she is high risk for anticoagulation at present. Metoprolol 2.5 mg every 6 has been ordered for puldse greater than 110 (5) Humerus fracture Current Visit: Yes Status: Acute Assessment and Plan: Dr. Lyn was updated on her current status as aforementioned Status post ORIF. Orthopedic surgeon she would likely need ECF referral for rehabilitation (6) DM type 2 (diabetes mellitus, type 2) Current Visit: Yes Status: Chronic Assessment and Plan: A1c 5.9, POC 123-151 insulin per protocol (7) DVT prophylaxis Current Visit: Yes Status: Acute Assessment and Plan: SCDs (8) COPD (chronic obstructive pulmonary disease) Current Visit: Yes Status: Chronic Assessment and Plan: As needed DuoNeb resume Symbicort (9) HTN (hypertension) Current Visit: Yes Status: Chronic Assessment and Plan: Normotensive, will watch patient meeting sepsis criteria (10) CKD (chronic kidney disease) stage 3, GFR 30-59 ml/min Current Visit: Yes Status: Chronic Assessment and Plan: Serum creatinine trended up 1.19-1.28, resolved 1.17 today with gentle hydration, likely prerenal from hypoperfusion secondary to acute blood loss. 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 Pt. reports she cannot take Coumadin or other anticoagulants d/t being supratherapeutic. Takes 81 mg ASA daily. (12) Hypokalemia Current Visit: Yes Status: Acute Assessment and Plan: Potential management was 3.2. She was supplemented with 40 mEq orally, however given the atrial fibrillation with RVR will start IV potassium replacement - Time Spent with Patient Total time spent is greater than 50% in coordination of care (as documented) at patient's floor/unit and/or counseling patient: Plan of Care Discussed with: alliance consultant (television cabinet finisher dog daycare provider, Dr Lyn the orthopedic physician) Internal Medicine: Result - Labs CBC & Chem 7: 10/10/18 09:00 10/10/18 03:55 Labs: Short CBC 10/09/18 10/09/18 10/10/18 Range/Units 16:46 22:02 03:55 WBC 9.9 D (4.3-11.1) K/mcL Hgb 8.0 L 7.5 L 7.4 L (11.5-15.4) g/dL Hct 24.7 L 23.3 L 23.7 L (35.3-44.9) % Plt Count 182 (140-400) K/mcL Neutrophils # 8.1 (1.6-8.9) K/mcL 10/10/18 Range/Units 09:00 WBC (4.3-11.1) K/mcL Hgb 8.3 L (11.5-15.4) g/dL Hct 26.6 L (35.3-44.9) % Plt Count (140-400) K/mcL Neutrophils # (1.6-8.9) K/mcL BMP 10/10/18 03:55 Sodium 136 Potassium 3.2 L Chloride 105 Carbon Dioxide 13 L BUN 37 H Creatinine 1.17 Glucose 109 H Calcium 7.8 L Liver Function 10/10/18 Range/Units 10:51 Total Bilirubin 0.2 L (0.3-1.0) mg/dL Direct Bilirubin 0.0 (0.0-0.2) mg/dL AST 19 (13-39) Units/L ALT < 3 L (7-52) Units/L Alkaline Phosphatase 69 (34-104) Units/L Albumin 2.9 L (3.5-5.7) g/dL - ABG Interpretation ABG results: PT/INR, D-dimer PT 11.8 Seconds (9.4-12.1) 10/08/18 02:34 Consult Discharge Plan - Plan Additional Instructions: LONGTERM DISCHARGE INSTRUCTIONS Dr. Lyn PROCEDURE PERFORMED Open reduction and internal fixation of the left distal humerus and olecranon Incision care Keep the splint and dressing on at all times. Do not take off or get wet or dirty. Weight bearing status -Nonweightbearing to the left upper extremity. -Resume therapy for right lower extremity per Dr. Benito' instructions. Medications -Pain medication per the discharging medical doctor -Enteric coated aspirin 325 mg by mouth daily for 28 days from the date of the surgery. Other -Knee high PENNY hose 23 hours per day -Sequential compression devices to the calves while in bed. -Consult physical and occupational therapy for mobilization. -Up to chair with assistance at least twice per day. -Follow up with your primary care physician to discuss testing for bone mineral density. Follow-up with Dr. Lyn at the office 2 weeks from the surgery date for a post operative evaluation. Call the office at [phone] to schedule appointment. Referrals: Merlin Gee MD [Primary Care Provider] - (5) Humerus fracture Qualifiers: Encounter type: initial encounter Humerus Location: supracondylar fracture without intercondylar fracture Fracture type: closed Fracture alignment: displaced Laterality: left Qualified Code(s): S42.412A - Displaced simple supracondylar fracture without intercondylar fracture of left humerus, initial encounter for closed fracture (6) DM type 2 (diabetes mellitus, type 2) Qualifiers: Diabetes mellitus oysterman insulin use: without oysterman use Diabetes mellitus complication status: without complication Qualified Code(s): E11.9 - Type 2 diabetes mellitus without complications (8) COPD (chronic obstructive pulmonary disease) Qualifiers: COPD type: unspecified COPD Qualified Code(s): J44.9 - Chronic obstructive pulmonary disease, unspecified (9) HTN (hypertension) Qualifiers: Hypertension type: essential hypertension Qualified Code(s): I10 - Essential (primary) hypertension
[2018-10-10 14:00] LABS: Basophils % 0.2 %; Eosinophils % 0.1 %; Hematocrit 24.1 % (35.3-44.9); Hemoglobin 7.8 g/dL (11.5-15.4); Immature Granulocytes % 0.6 % (0-4); Lymphocytes # 1.1 K/mcL (0.6-4.6); Lymphocytes % 8.9 %; Mean Corpuscular HGB Conc 32.4 g/dL (31.6-35.5); Mean Corpuscular Volume 92.7 fL (83.0-100.0); Mean Platelet Volume 10.9 fL (9.4-12.4); Monocytes # 0.7 K/mcL (0.0-1.3); Monocytes % 5.7 %; Neutrophils # 10.2 K/mcL (1.6-8.9); Platelet Count 199 K/mcL (140-400); Red Cell Distribution Width 16.8 % (11.5-14.5); Segmented Neutrophils % 84.5 %
[2018-10-10 14:13] LABS: INR 1.1; Prothrombin Time 12.4 Seconds (9.4-12.1)
[2018-10-10 14:16] LABS: Activated Partial Thrombo Time 36.3 Seconds (26.0-36.0)
[2018-10-10 14:26] LABS: Alanine Aminotransferase < 3 Units/L (7-52); Albumin 2.9 g/dL (3.5-5.7); Albumin/Globulin Ratio 1.1 (1.1-2.2); Alkaline Phosphatase 69 Units/L (34-104); Aspartate Amino Transferase 19 Units/L (13-39); BUN/Creatinine Ratio 30 (6-26); Bilirubin,Indirect 0.2 mg/dL (0.0-1.2); Bilirubin,Total 0.2 mg/dL (0.3-1.0); Blood Urea Nitrogen 32 mg/dL (8-23); Calcium 8.2 mg/dL (8.6-10.3); Carbon Dioxide 21 mEq/L (23-29); Chloride 107 mEq/L (98-107); Globulin 2.6 g/dL (2.4-3.5); Glucose 117 mg/dL (70-105); Osmolality,Calculated 290 (280-300); Potassium 2.9 mEq/L (3.5-5.1); Sodium 136 mEq/L (136-145); Total Protein 5.5 g/dL (6.4-8.9); eGFR For African Americans 58 (> 60); eGFR For Non-African Americans 48 (> 60)
--- NOTE | 2018-10-10 15:02 | Orthopedics Progress Note ---
Date of Encounter: 10/10/18 Time of Encounter: 15:00 Subjective Principal diagnosis: Left elbow distal humerus and olecranon fracture Interval history: Patient is comfortable today with mild pain at the elbow Drains were pulled assessment and Left upper extremity: Splint intact, minimal swelling of hand She has good motion of digits and flexion-extension abduction and adduction Fingers are warm to touch with good capillary refill. She has mild tingling in all digits. Assessment postoperative day #2, doing well Plan: The patient's discharge planning to rehabilitation Patient encouraged do digital motion exercises Continue nonweightbearing Follow-up with Dr. Harris as scheduled Objective Vital signs: Vital Signs Temp Pulse Resp BP Pulse Ox 10/10/18 11:38 98.1 F 97 17 102/59 95 10/10/18 09:59 16 115/63 95 10/10/18 08:45 98.6 F 71 15 115/63 99 10/10/18 04:22 97.8 F 68 18 114/48 98 10/09/18 23:59 98.6 F 71 14 107/45 94 10/09/18 22:57 18 94 10/09/18 19:14 100.3 F H 82 16 103/55 95 10/09/18 17:21 99.9 F H 86 16 106/57 95 10/09/18 15:32 99.6 F 73 18 119/56 95 Intake and Output 10/09/18 10/10/18 10/10/18 23:59 07:59 15:59 Intake Total 350 / 2000 0 / 130 130 / 130 Output Total 510 / 920 395 / 435 40 / 435 Balance -160 / 1080 -395 / -305 90 / -305 Intake: IV Fluids 110 / 1410 10 10 Rocephin 1,000 MG In Water for inj. (sterile) 10 ML @ 600 mls/ hr IVP DAILY PABLO Rx#:[id number] Ancef 1,000 MG In 0.9 % Sodium 100 / 100 Chloride (Mini-Bag +) 100 ML @ 200 mls/hr IVPB Q12HR PABLO Rx#: [id number] Oral 240 / 240 0 / 120 120 / 120 Output: Catheter 475 / 675 375 / 375 Wound Drainage 35 / 245 20 / 60 40 / 60 Left Shoulder 35 / 245 20 / 60 40 / 60 Other: Meal Dinner Breakfast Percent of Meal Consumed 5% 20% Weight 58.38 kg Blood Glucose* 130 165 Patient Weight 10/10/18 23:59 Weight 58.38 kg - Labs CBC & BMP: 10/10/18 13:39 10/10/18 13:39 Labs: Abnormal lab results WBC 12.0 K/mcL (4.3-11.1) H 10/10/18 13:39 RBC 2.60 M/mcL (3.82-4.97) L 10/10/18 13:39 Hgb 7.8 g/dL (11.5-15.4) L 10/10/18 13:39 Hct 24.1 % (35.3-44.9) L 10/10/18 13:39 MCHC 31.2 g/dL (31.6-35.5) L 10/10/18 03:55 RDW 16.8 % (11.5-14.5) H 10/10/18 13:39 Neutrophils # 10.2 K/mcL (1.6-8.9) H 10/10/18 13:39 Lymphocytes # 0.4 K/mcL (0.6-4.6) L 10/09/18 05:40 PT 12.4 Seconds (9.4-12.1) H 10/10/18 13:39 APTT 36.3 Seconds (26.0-36.0) H 10/10/18 13:39 Potassium 2.9 mEq/L (3.5-5.1) L 10/10/18 13:39 Chloride 110 mEq/L (98-107) H 10/09/18 04:45 Carbon Dioxide 21 mEq/L (23-29) L 10/10/18 13:39 BUN 32 mg/dL (8-23) H 10/10/18 13:39 Creatinine 1.28 mg/dL (0.60-1.20) H 10/09/18 04:45 Est GFR ( Amer) 58 (> 60) L 10/10/18 13:39 Est GFR (Non-Af Amer) 48 (> 60) L 10/10/18 13:39 BUN/Creatinine Ratio 30 (6-26) H 10/10/18 13:39 Glucose 117 mg/dL (70-105) H 10/10/18 13:39 POC Glucose 130 mg/dL (70-99) H 10/09/18 21:57 Hemoglobin A1c 5.9 % (-5.6) H 10/08/18 02:34 Calcium 8.2 mg/dL (8.6-10.3) L 10/10/18 13:39 Iron 11 mcg/dL (50-170) L 10/09/18 09:00 % Saturation 4 % (15-50) L 10/09/18 09:00 Transferrin 180 mg/dL (203-362) L 10/09/18 09:00 Ferritin 141 ng/mL (10-120) H 10/09/18 09:00 Total Bilirubin 0.2 mg/dL (0.3-1.0) L 10/10/18 13:39 ALT < 3 Units/L (7-52) L 10/10/18 13:39 Troponin I 0.05 ng/mL (< 0.04) H* 10/10/18 13:39 Serum Total Protein 5.5 g/dL (6.4-8.9) L 10/10/18 13:39 Albumin 2.9 g/dL (3.5-5.7) L 10/10/18 13:39 Urine Clarity Cloudy (Clear) A 10/09/18 10:30 Urine Protein 30 mg/dL (Neg-Trace) H 10/09/18 10:30 Urine Ketones Trace mg/dL (Negative) H 10/09/18 10:30 Urine Blood Small (Negative) H 10/09/18 10:30 Ur Leukocyte Esterase Moderate (Negative) H 10/09/18 10:30 Urine Microscopic WBC 30-50 per hpf (0-3) H 10/09/18 10:30 Ur Squamous Epith Cells Moderate per lpf (None-Few) H 10/09/18 10:30 Ur Culture Indicated? YES (NO) A 10/09/18 10:30 Crossmatch See Detail 10/08/18 08:04 Consult Discharge Plan - Plan Additional Instructions: [facility] DISCHARGE INSTRUCTIONS Dr. Arreguin PROCEDURE PERFORMED Open reduction and internal fixation of the left distal humerus and olecranon Incision care Keep the splint and dressing on at all times. Do not take off or get wet or dirty. Weight bearing status -Nonweightbearing to the left upper extremity. -Resume therapy for right lower extremity per Dr. Benito' instructions. Medications -Pain medication per the discharging medical doctor -Enteric coated aspirin 325 mg by mouth daily for 28 days from the date of the surgery. Other -Knee high PENNY hose 23 hours per day -Sequential compression devices to the calves while in bed. -Consult physical and occupational therapy for mobilization. -Up to chair with assistance at least twice per day. -Follow up with your primary care physician to discuss testing for bone mineral density. Follow-up with Dr. Arreguin at the office 2 weeks from the surgery date for a post operative evaluation. Call the office at [phone] to schedule appointment. Referrals: Merlin Gee MD [Primary Care Provider] -
[2018-10-10 15:24] LABS: Hematocrit 25.2 % (35.3-44.9); Hemoglobin 8.2 g/dL (11.5-15.4)
--- NOTE | 2018-10-10 15:42 | Cardiology Consult Note ---
Date of Encounter: 10/10/18 Time of Encounter: 15:39 Assessment and Plan (1) Atrial fibrillation Current Visit: Yes Status: Chronic Postoperatively, patient has developed atrial fibrillation on ECG, current telemetry suggest possible 2-1 atrial flutter. Agree with rate control strategy. Will start oral BB. Titrate as needed. Hopefully she will spontaneously convert to normal sinus rhythm. CHADS-VASc score is elevated. Since surgery, hemoglobin has been relatively low and she has required a unit of blood. Recommend continue to monitor hemoglobin for now. If hemoglobin stabilizes, we discussed the possibility of anticoagulation prior to discharge. Continue aspirin for now. All questions answered. Qualifiers: Atrial fibrillation type: paroxysmal Qualified Code(s): I48.0 - Paroxysmal atrial fibrillation Discussion w patient/family: The assessment and plan as outlined above was discussed with the patient and/or family members who expressed understanding and agreement. All questions were answered. Thank you for involving us in the care of your patient. Please call with any questions. History of Present Illness Consult date: 10/10/18 Requesting physician: Davion Gilbert Consult reason: Arrhythmia Chief complaint: Postop History of present illness: Ms. Arroyo is a 83 year old female who is status post surgery of the left upper extremity for a fracture. I was contacted today for arrhythmia concerns. ECG reviewed which demonstrates atrial fibrillation, current monitor technician suggests possible atrial flutter. Patient denies any history of arrhythmias. Currently, she denies chest pain or discomfort. Since surgery, patient noted to be anemic, she did require one unit of packed red blood cells. Minimal troponin elevation noted in the setting of postop status, anemia, and tachycardia. Recent TTE performed on 10/08 chemistries normal LV function. Past Med Surg Social Fam HX - Past Medical History Medical history: asthma, atrial fibrillation, cancer, COPD, diabetes, hypertension Additional medical history: breast/kidney cancer Psychiatric history: anxiety, depression - Past Surgical History Surgical History: breast surgery (Lumpectomy in left breast), hysterectomy, orthopedic, other, other (Nephrectomy of left kidney d/t kidney cancer) Additional surgical history: nephrectomy left side. lumpectomy. c holecystectomy. toe amputation - Social History Smoking Status: Former smoker Packs per day: 2 PPD - Reports quitting in 1996 Smokeless Tobacco Status: No Alcohol use: rarely Drug use: none - Family History Mother Race: Family Member Ethnicity: Non- Living Status: Age at : 74 Cause of : CVA Hx Family Cardiac Disorders: Yes (Strokes) Hx Family Endocrine Disorder: Yes (Diabetes) Sister Race: Family Member Ethnicity: Non- Living Status: Age at : 86 Cause of : Ovarian cancer Hx Family Cancer: Yes (Ovarian, Colon, Breast) Father History Unknown: Yes Race: Family Member Ethnicity: Non- Living Status: Medications and Allergies Alendronate Sodium 70 mg PO MO 04/27/18 [History] Armodafinil [Nuvigil] 250 mg PO QAM 04/27/18 [History] Gabapentin [Neurontin] 100 mg PO QPM 04/27/18 [History] Gemfibrozil [Lopid] 600 mg PO BID 04/27/18 [History] Ondansetron HCl [Zofran] 4 mg PO Q8HR PRN 04/27/18 [History] Albuterol Sulfate [Proair Hfa] 2 puff IH Q6H PRN 07/24/18 [History] Budesonide/Formoterol 160/4.5 [Symbicort 160/4.5] 2 puff IH BID 07/24/18 [Hist ory] Oxybutynin Chloride [Ditropan XL] 10 mg PO QPM 07/24/18 [History] Ascorbic Acid [Vitamin C] 500 mg PO DAILY 07/25/18 [History] Cholecalciferol (Vitamin D3) [Vitamin D3] 5,000 unit PO DAILY 07/25/18 [History] Cranberry Conc/C/Bacill Coag [Cranberry Tablet] 1 tab PO DAILY 07/25/18 [History] Krill/Om-3/Dha/Epa/Phospho/Ast [Maximum Red Krill [place]-3 Sfgl] 1 cap PO DAILY 07/25/18 [History] Amlodipine Besylate 2.5 mg PO QAM 10/09/18 [History] Aspirin Enteric Coated [Aspirin EC] 81 mg PO QAM 10/09/18 [History] DiphenhydraMINE [Benadryl] 25 mg PO DAILY PRN 10/09/18 [History] Ferrous Sulfate 325 mg PO DAILY 10/09/18 [History] Lutein/Zeaxanthin [Lutein-Zeaxanthin 25-5 mg Sfgl] 1 cap PO DAILY 10/09/18 [History] OxyCODONE/APAP 5/325 [Percocet 5/325 MG] 1 each PO Q6HR PRN 10/09/18 [History] Allergy/AdvReac Type Severity Reaction Status Date / Time methenamine [From Hiprex] Allergy Hives Verified 10/07/18 19:01 monosodium glutamate Allergy Anaphylaxis Verified 10/07/18 19:01 moxifloxacin [From Avelox] Allergy Anaphylaxis Verified 10/07/18 19:01 naproxen [From Naprosyn] Allergy Rash Verified 10/07/18 19:01 clarithromycin [From Biaxin] AdvReac Nausea Verified 10/07/18 19:01 pantoprazole [From Protonix] AdvReac Nausea Verified 10/07/18 19:01 All Systems Review: The remainder of the systems were reviewed and are negative - Cardiovascular Cardiovascular: as per HPI Physical Examination General: Conversant, No Apparent Distress HEENT: Atraumatic, Normocephaly, Mucus Membranes Moist Neck: Normal carotid pulses Cardiac: Reg Rate and Rhythm, Normal S1 and S2, No Murmur, Other (Tachycardic) Lungs: Normal Breath Sounds, No Wheeze, Rales, Rhonchi Neuro: Alert and responsive, No focal deficits noted Abdomen: Soft, Non-Tender Skin: No rashes noted on visualized skin Musculoskeletal: No Chest Wall Tenderness Extremities: No Clubbing, No Cyanosis, No Edema, Normal Pulses, Other (Left upper extremity has a bandage in place) Results 10/10/18 15:06 10/10/18 13:39 Lab Results 10/09/18 10/09/18 10/10/18 16:46 22:02 03:55 WBC Hgb 8.0 L 7.5 L Hct 24.7 L 23.3 L Plt Count INR APTT Sodium 136 Potassium 3.2 L Chloride 105 Carbon Dioxide 13 L BUN 37 H Creatinine 1.17 Glucose 109 H Calcium 7.8 L Magnesium Total Bilirubin AST ALT Alkaline Phosphatase Troponin I 10/10/18 10/10/18 10/10/18 03:55 03:55 09:00 WBC 9.9 D Hgb 7.4 L 8.3 L Hct 23.7 L 26.6 L Plt Count 182 INR APTT Sodium Potassium Chloride Carbon Dioxide BUN Creatinine Glucose Calcium Magnesium 2.0 Total Bilirubin AST ALT Alkaline Phosphatase Troponin I 10/10/18 10/10/18 10/10/18 10:51 13:39 13:39 WBC 12.0 H Hgb 7.8 L Hct 24.1 L Plt Count 199 INR APTT Sodium Potassium Chloride Carbon Dioxide BUN Creatinine Glucose Calcium Magnesium Total Bilirubin 0.2 L AST 19 ALT < 3 L Alkaline Phosphatase 69 Troponin I 0.05 H* 10/10/18 10/10/18 10/10/18 13:39 13:39 15:06 WBC Hgb 8.2 L Hct 25.2 L Plt Count INR 1.1 APTT 36.3 H Sodium 136 Potassium 2.9 L Chloride 107 Carbon Dioxide 21 L BUN 32 H Creatinine 1.08 Glucose 117 H Calcium 8.2 L Magnesium Total Bilirubin 0.2 L AST 19 ALT < 3 L Alkaline Phosphatase 69 Troponin I - Imaging and Cardiology Echo: report reviewed - EKG Interpretation EKG results cardiology: personally reviewed Consult Discharge Plan - Plan Additional Instructions: [facility] DISCHARGE INSTRUCTIONS Dr. Arreguin PROCEDURE PERFORMED Open reduction and internal fixation of the left distal humerus and olecranon Incision care Keep the splint and dressing on at all times. Do not take off or get wet or dirty. Weight bearing status -Nonweightbearing to the left upper extremity. -Resume therapy for right lower extremity per Dr. Benito' instructions. Medications -Pain medication per the discharging medical doctor -Enteric coated aspirin 325 mg by mouth daily for 28 days from the date of the surgery. Other -Knee high PENNY hose 23 hours per day -Sequential compression devices to the calves while in bed. -Consult physical and occupational therapy for mobilization. -Up to chair with assistance at least twice per day. -Follow up with your primary care physician to discuss testing for bone mineral density. Follow-up with Dr. Arreguin at the office 2 weeks from the surgery date for a post operative evaluation. Call the office at [phone] to schedule appointment. Referrals: Merlin Gee MD [Primary Care Provider] -
[2018-10-10] MEDS: Metoprolol XL (24 HR) Succ 25 MG TAB.ER.24H PO SCH (16:32)
[2018-10-10] MEDS: *HR* Metoprolol 5 MG/5 ML VIAL IVP PRN ×2 (16:33→23:22)
[2018-10-10] MEDS: Ondansetron 4 MG/2 ML VIAL IVP PRN (19:38)
[2018-10-10 21:31] LABS: Hemoglobin 7.6 g/dL (11.5-15.4)
[2018-10-11 01:43] LABS: Hematocrit 23.6 % (35.3-44.9); Hemoglobin 7.7 g/dL (11.5-15.4); Mean Corpuscular HGB Conc 32.6 g/dL (31.6-35.5); Mean Corpuscular Hemoglobin 30.9 pg (28.0-33.3); Mean Corpuscular Volume 94.8 fL (83.0-100.0); Mean Platelet Volume 10.3 fL (9.4-12.4); Platelet Count 193 K/mcL (140-400); Red Blood Count 2.49 M/mcL (3.82-4.97); Red Cell Distribution Width 17.2 % (11.5-14.5); White Blood Count 12.3 K/mcL (4.3-11.1)
[2018-10-11 02:05] LABS: BUN/Creatinine Ratio 29 (6-26); Blood Urea Nitrogen 28 mg/dL (8-23); Calcium 8.2 mg/dL (8.6-10.3); Carbon Dioxide 19 mEq/L (23-29); Chloride 107 mEq/L (98-107); Glucose 142 mg/dL (70-105); Osmolality,Calculated 286 (280-300); Potassium 4.1 mEq/L (3.5-5.1); Sodium 134 mEq/L (136-145); eGFR For African Americans > 60 (> 60); eGFR For Non-African Americans 55 (> 60)
[2018-10-11] MEDS: traMADol 50 MG TABLET PO PRN (07:01)
[2018-10-11] MEDS: Budesonide/Formoterol 160/4.5 1 PUFF INH IH SCH ×2 (07:36→20:50)
[2018-10-11] MEDS ORDERED: amLODIPine 5 MG TABLET PO SCH (09:00)
[2018-10-11] MEDS: Gabapentin 100 MG CAPSULE PO SCH (09:05)
[2018-10-11] MEDS: Aspirin Enteric Coated 81 MG Tablet PO SCH (09:05)
[2018-10-11] MEDS: Cholecalciferol (D-3) 1,000 UNIT (25MCG) TABLET PO SCH (09:05)
[2018-10-11] MEDS: cefTRIAXone 1,000 MG in Water for inj. (sterile) 10 ML IVP SCH (09:05)
[2018-10-11] MEDS: Metoprolol XL (24 HR) Succ 25 MG TAB.ER.24H PO SCH (09:05)
[2018-10-11] MEDS: Ascorbic Acid 500 MG TABLET PO SCH (09:05)
[2018-10-11] MEDS: Insulin LISPRO 300 UNITS/3 ML VIAL SQ SCH ×4 (09:06→20:52)
--- NOTE | 2018-10-11 12:04 | Cardiology Progress Note ---
Date of Encounter: 10/11/18 Time of Encounter: 12:00 Assessment and Plan (1) Humerus fracture Current Visit: Yes Status: Acute Per Cardiology: PREOPERATIVE DIAGNOSIS: Left distal humerus fracture POSTOPERATIVE DIAGNOSIS: Left distal humerus fracture and nondisplaced olecranon fracture PROCEDURE: Open reduction and internal fixation of left distal humerus and left olecranon Management per primary service. Qualifiers: Encounter type: initial encounter Humerus Location: supracondylar fracture without intercondylar fracture Fracture type: closed Fracture alignment: displaced Laterality: left Qualified Code(s): S42.412A - Displaced simple supracondylar fracture without intercondylar fracture of left humerus, initial encounter for closed fracture (2) Atrial fibrillation Current Visit: Yes Status: Chronic Per Cardiology: Previous records reviewed : "Postoperatively, patient has developed atrial fibrillation on ECG, current telemetry suggest possible 2-1 atrial flutter. Agree with rate control strategy. Will start oral BB. Titrate as needed. Hopefully she will spontaneously convert to normal sinus rhythm". Currently atrial flutter 80s to 100s on telemetry. On Toprol-XL 25 mg by mouth daily. Systolic blood pressure 90s to 100s. We will discontinue Norvasc. Titrate beta torrie if needed. Regarding long-term anticoagulation, CHADS-VASc score is elevated. Since surgery, hemoglobin has been relatively low and she has required a unit of blood. Recommend continue to monitor hemoglobin for now. If hemoglobin stabilizes, we discussed the possibility of anticoagulation prior to discharge. Continue aspirin for now. Discussed with primary service, surgery recommends avoiding anticoagulation for this a few days. Patient and daughter aware of plan and increased stroke risk at this time. Qualifiers: Atrial fibrillation type: paroxysmal Qualified Code(s): I48.0 - Paroxysmal atrial fibrillation (3) Elevated troponin I measurement Current Visit: Yes Status: Acute Per Cardiology: Troponins flat and adynamic with peak of 0.11 in setting of A. fib with RVR, postoperative status, anemia. Suspect type II demand ischemia, no cardiac rehabilitation consult warranted. EF preserved on echo. On aspirin, statin, beta torrie. CP free. No further ischemic evaluation warranted. Discussion w patient/family: The assessment and plan as outlined above was discussed with the patient and/or family members who expressed understanding and agreement. All questions were answered. Thank you for involving us in the care of your patient. Please call with any questions. Subjective Principal diagnosis: Afib Interval history: Seen with daughter at bedside. She denies any chest pain or palpitations. Denies any significant short of breath. Denies any new concerns or complaints. Objective Vital Signs, Last 4 Hours Temp Pulse Resp BP Pulse Ox 10/11/18 11:32 97.7 F 95 16 97/63 92 10/11/18 08:12 97.7 F 109 15 100/63 94 General: Conversant, No Apparent Distress HEENT: Atraumatic, Normocephaly, Mucus Membranes Moist Neck: No JVD, Normal carotid pulses Cardiac: No Murmur, Other (Irregularly irregular) Lungs: Normal Breath Sounds, No Wheeze, Rales, Rhonchi Neuro: Alert and responsive, No focal deficits noted Abdomen: Soft, Non-Tender Skin: No rashes noted on visualized skin Musculoskeletal: No Chest Wall Tenderness Extremities: No Clubbing, No Cyanosis, No Edema, Normal Pulses Results 10/11/18 01:32 10/11/18 01:32 Lab Results Laboratory Tests 10/08/18 10/09/18 10/10/18 02:34 10:30 13:39 Hgb 9.1 L Hct 28.9 L Creatinine Est GFR (Non-Af Amer) Magnesium Troponin I 0.05 H* Urine Urobilinogen Normal Ur Culture Indicated? YES A 10/10/18 10/11/18 10/11/18 19:32 01:32 01:32 Hgb 7.7 L Hct 23.6 L Creatinine 0.97 Est GFR (Non-Af Amer) 55 L Magnesium Troponin I 0.11 H* Urine Urobilinogen Ur Culture Indicated? 10/11/18 10/11/18 01:32 01:32 Hgb Hct Creatinine Est GFR (Non-Af Amer) Magnesium 2.1 Troponin I 0.11 H* Urine Urobilinogen Ur Culture Indicated? ITS Impressions Echocardiogram 10/08/18 01:46 Impressions: LVEF 60-65%. Mild left ventricular diastolic dysfunction. Normal right ventricular structure and function. Mild tricuspid regurgitation. Mild pulmonic regurgitation. No pulmonary hypertension. Left Ventricular Wall Motion: Rest Echo Findings All wall segments showed normal motion. Findings: Study Quality * Technically adequate exam. ECG Findings * Sinus bradycardia. Left Ventricle * LVEF 60-65%. * Normal LV chamber size, wall thickness and function. * Mild left ventricular diastolic dysfunction. Right Ventricle * Normal right ventricular structure and function. Left Atrium * Moderately dilated left atrium. Right Atrium * Normal right atrial size. Mitral Valve * No mitral stenosis. * Mild mitral annular calcification * Doming of the anterior mitral valve leaflet. * Trace mitral regurgitation. Aortic Valve * No aortic regurgitation. * Trileaflet aortic valve. * No aortic stenosis. Tricuspid Valve * Normal tricuspid valve structure. * Mild tricuspid regurgitation. Pulmonic Valve * Pulmonic valve is not well visualized. * No pulmonic stenosis. * Mild pulmonic regurgitation. Pulmonary Artery * Pulmonary artery not well visualized. Aorta * Normally sized aortic root. Pericardium * There is no pericardial effusion present. Interatrial Septum * No evidence of PFO by color Doppler. IVC * The IVC is not well evaluated. Chest X-Ray 10/08/18 02:01 IMPRESSION: Chronic pulmonary change without focal airspace consolidation. D/ / Kali Sprague / Kali Sprague Interpreting Provider: Kali Sprague Elbow X-Ray 10/08/18 16:55 IMPRESSION: Intraprocedural fluoroscopic spot images as above. See separate procedure report for more information. D/ / Shayan Paul MD / Shayan Paul MD Interpreting Provider: Shayan Paul MD Fluoroscopy 10/08/18 16:55 IMPRESSION: Intraprocedural fluoroscopic spot images as above. See separate procedure report for more information. D/ / Shayan Paul MD / Shayan Paul MD Interpreting Provider: Shayan Paul MD Chest X-Ray 10/09/18 08:36 IMPRESSION: 1. Emphysema. No superimposed radiographic finding to account for patient's leukocytosis. D/ / Roddy Chu MD / Roddy Chu MD Interpreting Provider: Roddy Chu MD Active Medications Acetaminophen (Tylenol) 650 mg PO Q6H PRN PRN Reason: Mild Pain/Fever Stop: 04/09/19 22:28 Last Admin: 10/10/18 15:25 Dose: 650 mg Documented by: Albuterol Sulfate (Proventil Inhaler) 2 puff IH [id number] PRN PRN Reason: Wheezing Stop: 04/09/19 14:22 Last Admin: 10/09/18 07:47 Dose: 2 puff Documented by: Albuterol/Ipratropium (Duoneb) 3 ml IH [id number] PRN PRN Reason: Shortness Of Breath/Wheezing Stop: 04/09/19 19:20 Amlodipine Besylate (Norvasc) 2.5 mg PO QAM [facility] Stop: 04/12/19 09:01 Last Admin: 10/11/18 09:06 Dose: Not Given Documented by: Ascorbic Acid (Vitamin C) 500 mg PO DAILY [facility] Stop: 04/10/19 09:01 Last Admin: 10/11/18 09:05 Dose: 500 mg Documented by: Aspirin (Aspirin Ec) 81 mg PO DAILY [facility] Stop: 04/09/19 09:01 Last Admin: 10/11/18 09:05 Dose: 81 mg Documented by: Budesonide/Formoterol Fumarate (Symbicort) 2 puff IH BIDR [facility]; Protocol Stop: 04/09/19 10:01 Last Admin: 10/11/18 07:36 Dose: 2 puff Documented by: Dextrose/Water (Dextrose 50% (Syg)) 25 ml IVP AD PRN PRN Reason: Hypoglycemia Stop: 04/09/19 03:26 Docusate Sodium (Colace) 100 mg PO BID [facility] Stop: 04/09/19 09:01 Last Admin: 10/11/18 09:05 Dose: 100 mg Documented by: Gabapentin (Neurontin) 100 mg PO DAILY [facility] Stop: 04/10/19 09:01 Last Admin: 10/11/18 09:05 Dose: 100 mg Documented by: Gemfibrozil (Lopid) 600 mg PO BID [facility] Stop: 04/09/19 09:01 Last Admin: 10/11/18 09:05 Dose: 600 mg Documented by: Glucagon (Glucagen) 1 mg IM ONCE PRN PRN Reason: Hypoglycemia Stop: 04/09/19 03:26 Glucose (Gluctose) 15 gm PO ONCE PRN PRN Reason: Hypoglycemia Stop: 04/09/19 03:26 Glucose (Gluctose) 30 gm PO ONCE PRN PRN Reason: Hypoglycemia Stop: 04/09/19 03:26 Hydromorphone HCl (Dilaudid) 0.5 mg IVP Q5MPRN PRN; Protocol PRN Reason: Pain Stop: 04/09/19 20:35 Dextrose (Dextrose 5%) 1,000 mls @ 100 mls/hr IVC .Q10H PRN PRN Reason: HYPOGLYCEMIA Stop: 04/09/19 03:27 Ceftriaxone Sodium 1,000 mg/ (Sterile Water) 10 mls @ 600 mls/hr IVP DAILY [facility] Stop: 04/10/19 15:46 Last Admin: 10/11/18 09:05 Dose: 600 mls/hr Documented by: Sodium Chloride (0.9 % Sodium Chloride) 1,000 mls @ 75 mls/hr IVC .[id number] [facility] Stop: 04/10/19 16:01 Insulin Human Lispro (Humalog) 0 units SQ TIDAC [facility]; Protocol Stop: 04/09/19 17:31 Last Admin: 10/11/18 09:06 Dose: 2 units Documented by: Insulin Human Lispro (Humalog) 0 units SQ HS [facility]; Protocol Stop: 04/09/19 21:01 Last Admin: 10/10/18 20:32 Dose: Not Given Documented by: Metoprolol Succinate (Toprol Xl) 25 mg PO DAILY [facility] Stop: 04/11/19 16:01 Last Admin: 10/11/18 09:05 Dose: 25 mg Documented by: Metoprolol Tartrate (Lopressor) 2.5 mg IVP Q6HR PRN PRN Reason: pulse >110 Stop: 04/11/19 12:59 Last Admin: 10/10/18 23:22 Dose: 2.5 mg Documented by: Naloxone HCl (Narcan) 0.4 mg IVP Q2MPRN PRN PRN Reason: SEE COMMENTS Stop: 04/09/19 02:06 Ondansetron HCl (Zofran) 4 mg IVP Q8H PRN PRN Reason: Nausea And Vomiting Stop: 04/09/19 22:28 Last Admin: 10/10/18 19:38 Dose: 4 mg Documented by: Oxycodone HCl (Roxicodone) 10 mg PO Q6H PRN PRN Reason: Severe Pain Stop: 04/09/19 22:28 Last Admin: 10/10/18 23:22 Dose: 10 mg Documented by: Promethazine HCl (Phenergan) 6.25 mg IVP Q5MPRN PRN PRN Reason: Nausea And Vomiting Tramadol HCl (Ultram) 50 mg PO TID PRN PRN Reason: Mild Pain Stop: 04/08/19 23:07 Last Admin: 10/11/18 07:01 Dose: 50 mg Documented by: Vitamin D (Vitamin D) 1,000 unit PO DAILY [facility] Stop: 04/10/19 09:01 Last Admin: 10/11/18 09:05 Dose: 1,000 unit Documented by: - Imaging and Cardiology Echo: report reviewed Consult Discharge Plan - Plan Additional Instructions: S[facility]ING DISCHARGE INSTRUCTIONS Dr. Arreguin PROCEDURE PERFORMED Open reduction and internal fixation of the left distal humerus and olecranon Incision care Keep the splint and dressing on at all times. Do not take off or get wet or dirty. Weight bearing status -Nonweightbearing to the left upper extremity. -Resume therapy for right lower extremity per Dr. Benito' instructions. Medications -Pain medication per the discharging medical doctor -Enteric coated aspirin 325 mg by mouth daily for 28 days from the date of the surgery. Other -Knee high PENNY hose 23 hours per day -Sequential compression devices to the calves while in bed. -Consult physical and occupational therapy for mobilization. -Up to chair with assistance at least twice per day. -Follow up with your primary care physician to discuss testing for bone mineral density. Follow-up with Dr. Arreguin at the office 2 weeks from the surgery date for a post operative evaluation. Call the office at [phone] to schedule appointment. Referrals: Merlin Gee MD [Primary Care Provider] -
[2018-10-11] MEDS: *HR* OxyCODONE Immed Rel 5 MG TABLET PO PRN (14:36)
[2018-10-11] MEDS: *HR* Metoprolol 5 MG/5 ML VIAL IVP PRN (18:39)
[2018-10-11] MEDS ORDERED: *HR* Dextrose 50 % in Water (Syg) 50 ML SYRINGE IVP ONE (18:59)
--- NOTE | 2018-10-11 19:47 | Internal Med Progress Note ---
Hospitalist Progress Note - Encounter Date of Encounter: 10/11/18 Time of Encounter: 14:00 - Subjective Interval History: Ms gresham continues to have atrial flutter with rapid ventricular response. She stated she does not feel good, but her daughter who was at the bedside about her recent developments and treatment plan. per nursing staff she has not eaten much. GEN: Denies fever, but reports chills, fatigue and malaise HEENT: Denies headache blurriness, or dysphagia RESP: Denies SOB or cough CV: Denies chest pain admits to palpitations GI: Admits to Nausea, denies vomiting, diarrhea or constipation Reviewed current in hospital medications with modifications see orders Reviewed Routine labs - Exam Vitals: Temp Pulse Resp BP Pulse Ox 97.6 F 102 15 114/77 92 10/11/18 18:47 10/11/18 16:15 10/11/18 18:47 10/11/18 18:47 10/11/18 11:32 Exam: GEN: Mildly distressed but is somewhat somnolent, daughter at the bedside SKIN: Pale warm acyanotic not jaundice HEART: Irregularly irregular rate and rhythm and tachycardic, grade 3/6 systolic murmur appreciated today LUNGS: Diminished but no wheeze minima crackles, overall non labored ABDOMEN; Soft, non tender or distended, BS x 4 normactive EXT: No LE edema, Pedal pulses 1+, radial pulses 2+, left and held in flexion noted to be wrapped in Chad wrap and in a sling PSYCH: Mood and affect is appropriate - Assessment and Plan (1) Sepsis due to gram-negative UTI Current Visit: Yes Status: Acute Assessment and Plan: Urine culture revealed pansensitive Escherichia coli continue ceftriaxone blood culture still pending leukocytosis trended up 12-12.3, the patient clinically appears worse than yesterday although in the setting of persistent atrial flutter with rapid ventricular response. She is stable but guarded. She has had little dietary intake, one dose of dextrose 25 g ordered. Given the finding of gram-negative UTI her febrile response yesterday, coupled with the leukocytosis, it appears patient was sepsis on initial presentation. She has been afebrile but in the setting of IV tylenol use for pain which could have maxed her febrile response. Leukocytosis trended down from 20-9.9 today. We will obtain blood cultures although now in the setting of already antibiotic with ceftriaxone. She was on post surgical antibiotics too with cefazolin. Clinically she appears improved compared to yesterday. We will continue to monitor clinically correlate. (2) UTI (urinary tract infection) with pyuria Current Visit: Yes Status: Acute Assessment and Plan: Urine culture reveals pansensitive Escherichia coli continue ceftriaxone After talking to her daughter yesterday appears patient has a history of frequent UTI. We will continue ceftriaxone urine culture revealed gram-negative rods await sensitivity (3) Acute blood loss anemia Current Visit: Yes Status: Acute Assessment and Plan: hgb is stable at 7.7. Patient with known left upper extremity hematoma, we will trend CBC Status post ORIF case was discussed with Dr. Lyn, he stated that he did not appreciate any large vessel trauma from the fracture but patient did have hematoma he was also updated on her recent development. Upper extremity drain c ontinues to have serosanguineous/bloody output. He has instructed the nurse to disconitue CODY drain the left upper extremity with hopes of eventual tamponade. High hemoglobin improved from 7.5 to 8 status post 1 unit of packed red blood cell yesterday, trended down to 7.4 and is now 8.3, anemia work up was unyielding with normal levels of ferritin B12 and folate (4) Atrial flutter with rapid ventricular response Current Visit: Yes Status: Acute Assessment and Plan: patient was switched to Toprol XL, until his medication kicks in we will continue metoprolol 25 mg IV every 6 h, per nursing staff she maintains pulse greater than 120s all day prior history of atrial fibrillation not on anticoagulation due to bleed. She was noted on telemetry to be tachycardic and EKG stat revealed atrial flutter with rapid ventricular response today which rate noted on telemetry 120s to 130s. We will obtain a initial troponin given that she is complaining of tingling sensation in the left upper extremity, cardiology have been consulted given the complexity of acute illness-recent ORIF hematoma of left upper extremity. case was discussed with the instructional coach dining services director he recommended discussing with the orthopedic physician. Per physician this afternoon with Dr. Lyn given that patient still appears to have active left upper extremity hematoma she is high risk for anticoagulation at present. Metoprolol 2.5 mg every 6 has been ordered for puldse greater than 110 (5) Humerus fracture Current Visit: Yes Status: Acute Assessment and Plan: Dr. Lyn was updated on her current status as aforementioned Status post ORIF. Orthopedic surgeon she would likely need ECF referral for rehabilitation (6) DM type 2 (diabetes mellitus, type 2) Current Visit: Yes Status: Chronic Assessment and Plan: A1c 5.9, POC 123-151 insulin per protocol, blood glucose at 16:00 was 96, does appear more somnolence than earlier on during the day, is not eating will give 25 g of dextrose (7) DVT prophylaxis Current Visit: Yes Status: Acute Assessment and Plan: SCDs (8) COPD (chronic obstructive pulmonary disease) Current Visit: Yes Status: Chronic Assessment and Plan: As needed DuoNeb resume Symbicort (9) HTN (hypertension) Current Visit: Yes Status: Chronic Assessment and Plan: Normotensive, will watch patient meeting sepsis criteria (10) CKD (chronic kidney disease) stage 3, GFR 30-59 ml/min Current Visit: Yes Status: Chronic Assessment and Plan: Serum creatinine trended up 1.19-1.28, resolved 1.17 -0.97 today with gentle hydration, likely prerenal from hypoperfusion secondary to acute blood loss. 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 Pt. reports she cannot take Coumadin or other anticoagulants d/t being supratherapeutic. Takes 81 mg ASA daily. (12) Hypokalemia Current Visit: Yes Status: Acute Assessment and Plan: Potential management was 3.2. She was supplemented with 40 mEq orally, however given the atrial fibrillation with RVR will start IV potassium replacement, resolved potassium is 4.1 - Time Spent with Patient Total time spent is greater than 50% in coordination of care (as documented) at patient's floor/unit and/or counseling patient: Internal Medicine: Result - Labs CBC & Chem 7: 10/11/18 01:32 10/11/18 01:32 Labs: Short CBC 10/10/18 10/11/18 Range/Units 21:20 01:32 WBC 12.3 H (4.3-11.1) K/mcL Hgb 7.6 L 7.7 L (11.5-15.4) g/dL Hct 24.0 L 23.6 L (35.3-44.9) % Plt Count 193 (140-400) K/mcL BMP 10/11/18 01:32 Sodium 134 L Potassium 4.1 D Chloride 107 Carbon Dioxide 19 L BUN 28 H Creatinine 0.97 Glucose 142 H Calcium 8.2 L Cardiac Enzymes 10/10/18 10/11/18 Range/Units 19:32 01:32 Troponin I 0.11 H* 0.11 H* (< 0.04) ng/mL - ABG Interpretation ABG results: PT/INR, D-dimer PT 12.4 Seconds (9.4-12.1) H 10/10/18 13:39 Consult Discharge Plan - Plan Additional Instructions: PENITENTIARY DISCHARGE INSTRUCTIONS Dr. Lyn PROCEDURE PERFORMED Open reduction and internal fixation of the left distal humerus and olecranon Incision care Keep the splint and dressing on at all times. Do not take off or get wet or dirty. Weight bearing status -Nonweightbearing to the left upper extremity. -Resume therapy for right lower extremity per Dr. Benito' instructions. Medications -Pain medication per the discharging medical doctor -Enteric coated aspirin 325 mg by mouth daily for 28 days from the date of the surgery. Other -Knee high PENNY hose 23 hours per day -Sequential compression devices to the calves while in bed. -Consult physical and occupational therapy for mobilization. -Up to chair with assistance at least twice per day. -Follow up with your primary care physician to discuss testing for bone mineral density. Follow-up with Dr. Lyn at the office 2 weeks from the surgery date for a post operative evaluation. Call the office at [phone] to schedule appointment. 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
[2018-10-12 00:14] LABS: ABG Base Excess -4 mEq/L (-2 to 3); ABG HCO3 19 mEq/L (21-27); ABG Oxygen Saturation 96 % (95-98); ABG PCO2 30 mmHg (35-45); ABG PH 7.43 pH Units (7.32-7.45); ABG PO2 82 mmHg (85-104); ABG TCO2 20 mEq/L (20-26); Blood Gas FiO2 0.5 (1-15=lpm or21-100=%)
[2018-10-12 00:33] LABS: Hematocrit 24.9 % (35.3-44.9); Immature Platelets 5.7 % (1.1-6.1); Mean Corpuscular HGB Conc 32.1 g/dL (31.6-35.5); Mean Corpuscular Hemoglobin 30.2 pg (28.0-33.3); Mean Platelet Volume 10.9 fL (9.4-12.4); Red Blood Count 2.65 M/mcL (3.82-4.97); Red Cell Distribution Width 17.1 % (11.5-14.5)
[2018-10-12 00:34] LABS: White Blood Count 19.7 K/mcL (4.3-11.1)
[2018-10-12] MEDS ORDERED: Acetaminophen IV 500 MG/50 ML INFUS..BTL IVPB ONE (00:38)
[2018-10-12] MEDS ORDERED: 0.9 % Sodium Chloride 500 ML IVC ONE (00:43)
[2018-10-12] MEDS ORDERED: 0.9 % Sodium Chloride 1,000 ML ONE (00:44)
[2018-10-12 00:53] LABS: BUN/Creatinine Ratio 24 (6-26); Blood Urea Nitrogen 20 mg/dL (8-23); Calcium 8.3 mg/dL (8.6-10.3); Carbon Dioxide 19 mEq/L (23-29); Chloride 104 mEq/L (98-107); Glucose 183 mg/dL (70-105); Osmolality,Calculated 279 (280-300); Sodium 131 mEq/L (136-145); eGFR For African Americans > 60 (> 60); eGFR For Non-African Americans > 60 (> 60)
[2018-10-12] MEDS: 0.9 % Sodium Chloride 1,000 ML IVC SCH (01:52)
[2018-10-12] MEDS: traMADol 50 MG TABLET PO PRN ×2 (04:40→13:48)
--- NOTE | 2018-10-12 05:08 | Event Note ---
Date of Encounter: 10/11/18 Time of Encounter: 19:55 Alerted by pts. nurse SAMI Ghotra that the pt. had EKG done at 18:54 which showed Afib w/RVR. Pt. has hx of Afib w/o anticoagulation currently. HR was 120s to 130s. Nurse reported pt. was lethargic. Nurse reported family stated she was this way during the day. Nurse requested that I come and see the pt. I went to see the pt. who was resting in bed. Daughter at bedside. Pt. was arousable but appeared weak. Pt. stated that she felt very tired. Daughter reported not much PO intake today. Dr. Gilbert had been in to see the pt. earlier and ordered dextrose which helped the pts. HR. Alerted again by pts. nurse at 23:13 that pts. HR was 103s to 140s. EKG ordered. MEWS score 6. Nurse reported pt. was increasingly lethargic again. Stat ABG ordered which showed pH 7.43, PCO2 30, PO2 82, HCO3 19, total CO2 20, O2 saturation 96, base excess -4, delivery service cannula. Went to see the pt. who was lethargic and hard to arouse. Temp was 102. Stat labs ordered which showed WBC had increased from 12.3 to 19.7. Pt. has UTI caused by E. coli and is currently on Rocephin which is appropriate according to C&S report. 1V Portable CXR ordered which showed lungs were clear. Costophrenic angles sharp. Cardiomediastinal silhouette is within normal limits. There is no discernible pneumothorax. Paged Dr. Burton to come see the pt. as well as Dr. Engel. IVPB [facility] ordered for fever. Rocephin discontinued and IVPB Zosyn and vancomycin ordered for broad-spectrum infection coverage. Discussed patient with pharmacy due to patient only having one kidney due to concern for vancomycin use. Vancomycin will be pharmacy dosed and patient monitored closely. 500 mL bolus of 0.9 ordered to be followed by 100 mL's per hour. Cardizem drip ordered but held to see if patient's heart rate would respond to fluid resuscitation. Repeat blood cultures ordered stat as well as MRSA surveillance screen. Patient continued to remain lethargic on exam by Drs. Burton and Fustok. Bed Management called to secure bed in 2N. Patient taken down to CT and daughter taken to 2N9 to await the pts. return. Nurse instructed to continue monitoring the pt. very closely and alert me or Dr. Frazier immediately as the pt. was now moving to 2N. Dr. Frazier updated on the transfer and pts. report.
[2018-10-12] MEDS: Budesonide/Formoterol 160/4.5 1 PUFF INH IH SCH ×2 (08:05→21:52)
[2018-10-12] MEDS: *HR* Metoprolol 5 MG/5 ML VIAL IVP PRN (08:34)
[2018-10-12] MEDS: *HR* OxyCODONE Immed Rel 5 MG TABLET PO PRN ×3 (08:35→23:53)
[2018-10-12] MEDS: Piperacillin/Tazobactam 3.375 GM in 0.9 % Sodium Chloride Mini Bag 100 ML IVPB SCH ×3 (08:36→23:53)
[2018-10-12] MEDS: Gabapentin 100 MG CAPSULE PO SCH (08:36)
[2018-10-12] MEDS: Aspirin Enteric Coated 81 MG Tablet PO SCH (08:36)
[2018-10-12] MEDS: Cholecalciferol (D-3) 1,000 UNIT (25MCG) TABLET PO SCH (08:36)
[2018-10-12] MEDS: Metoprolol XL (24 HR) Succ 25 MG TAB.ER.24H PO SCH ×2 (08:36→21:13)
[2018-10-12] MEDS: Ascorbic Acid 500 MG TABLET PO SCH (08:36)
[2018-10-12] MEDS: Insulin LISPRO 300 UNITS/3 ML VIAL SQ SCH ×3 (08:53→23:54)
[2018-10-12] MEDS: Ondansetron 4 MG/2 ML VIAL IVP PRN (09:12)
[2018-10-12] MEDS: Levalbuterol Neb 0.63 MG/3 ML IH SCH ×2 (11:02→21:52)
--- NOTE | 2018-10-12 11:39 | Cardiology Progress Note ---
Date of Encounter: 10/12/18 Time of Encounter: 09:45 Assessment and Plan (1) Humerus fracture Current Visit: Yes Status: Acute Per Cardiology: PREOPERATIVE DIAGNOSIS: Left distal humerus fracture POSTOPERATIVE DIAGNOSIS: Left distal humerus fracture and nondisplaced olecranon fracture PROCEDURE: Open reduction and internal fixation of left distal humerus and left olecranon Management per primary service. Qualifiers: Encounter type: initial encounter Humerus Location: supracondylar fracture without intercondylar fracture Fracture type: closed Fracture alignment: displaced Laterality: left Qualified Code(s): S42.412A - Displaced simple supracondylar fracture without intercondylar fracture of left humerus, initial encounter for closed fracture (2) Leukocytosis, unspecified Current Visit: Yes Status: Acute Per Cardiology: WBC increasimg from 9 to [address]. [address] 102[address] CT: IMPRESSION: Mild multifocal clustered nodularity in the right upper and middle lobes, suspicious for infectious or inflammatory bronchiolitis. Management per primary service. Suspect contributing factor to A. fib with RVR. Qualifiers: Leukocytosis type: unspecified Qualified Code(s): D72.829 - Elevated white blood cell count, unspecified (3) Atrial fibrillation Current Visit: Yes Status: Chronic Per Cardiology: Suspect multifactorial-- dehydration, leukocytosis, anemia. Currently afib 100s - 110s on telemetry. Not on Cardizem gtt. On Toprol-XL 25 mg by mouth daily. Systolic blood pressure 90s to 100s. Will change Toprol to 12.5mg PO BID-- titrate as BP will allow. Suspect A. fib heart rates will improve with treatment of underlying comorbids. Remains anemic, may benefit from another unit of blood (received 1 unit) Regarding long-term anticoagulation, CHADS-VASc score is elevated. Since julisa mclean, hemoglobin has been relatively low and she has required a unit of blood. Recommend continue to monitor hemoglobin for now. If hemoglobin stabilizes, we discussed the possibility of anticoagulation prior to discharge. Continue aspirin for now. Qualifiers: Atrial fibrillation type: paroxysmal Qualified Code(s): I48.0 - Paroxysmal atrial fibrillation (4) Elevated troponin I measurement Current Visit: Yes Status: Acute Per Cardiology: Troponins flat and adynamic with peak of 0.11 in setting of A. fib with RVR, postoperative status, anemia. Suspect type II demand ischemia. Recent troponins shoe no significant change. EF preserved on echo. On aspirin, statin, beta torrie. CP free. No further ischemic evaluation warranted. Discussion w patient/family: The assessment and plan as outlined above was discussed with the patient and/or family members who expressed understanding and agreement. All questions were answered. Thank you for involving us in the care of your patient. Please call with any questions. Subjective Principal diagnosis: Afib Interval history: Seen with daughter at bedside. She denies any chest pain or palpitations. Denies any significant shortness of breath. Denies any new concerns or complaints. Objective Vital Signs, Last 4 Hours Resp Pulse Ox 10/12/18 08:05 18 99 Selected Entries 10/12/18 06:32 10/12/18 08:35 Temperature 97.8 F Pulse Rate 123 Blood Pressure 101/50 Oxygen Flow Rate (LPM) 2 Oxygen Delivery Method Nasal Cannula General: Conversant, No Apparent Distress HEENT: Atraumatic, Normocephaly, Mucus Membranes Moist Neck: No JVD, Normal carotid pulses Cardiac: No Murmur, Other (Irregularly irregular) Lungs: Normal Breath Sounds, No Wheeze, Rales, Rhonchi Neuro: Alert and responsive, No focal deficits noted Abdomen: Soft, Non-Tender Skin: No rashes noted on visualized skin Musculoskeletal: No Chest Wall Tenderness Extremities: No Clubbing, No Cyanosis, No Edema, Normal Pulses Results 10/12/18 00:05 10/12/18 00:05 Lab Results Laboratory Tests 10/08/18 10/10/18 10/10/18 02:34 13:39 19:32 WBC 9.6 Hgb Hct Potassium Creatinine Est GFR (Non-Af Amer) Magnesium Troponin I 0.05 H* 0.11 H* 10/11/18 10/12/18 10/12/18 01:32 00:05 00:05 WBC 19.7 H D Hgb 8.0 L Hct 24.9 L Potassium Creatinine Est GFR (Non-Af Amer) Magnesium 2.1 Troponin I 0.11 H* 10/12/18 10/12/18 10/12/18 00:05 00:05 06:45 WBC Hgb Hct Potassium 4.0 Creatinine 0.84 Est GFR (Non-Af Amer) > 60 Magnesium Troponin I 0.07 H* 0.06 H* Impressions Chest X-Ray 10/12/18 00:18 IMPRESSION: Negative portable chest. D/ / Carrington Garcias MD / Carrington Garcias MD Interpreting Provider: Carrington Garcias MD Abdomen/Pelvis CT 10/12/18 00:46 IMPRESSION: 1. Suspected stercoral proctitis. 2. Diverticulosis without scan evidence for diverticulitis. D/ / Carrington Garcias MD / Carrington Garcias MD Interpreting Provider: Carrington Garcias MD Chest CT 10/12/18 00:48 IMPRESSION: Mild multifocal clustered nodularity in the right upper and middle lobes, suspicious for infectious or inflammatory bronchiolitis. Mild mediastinal lymphadenopathy is presumably reactive. Trace left pleural effusion with associated atelectasis. Aortic valvular calcifications may be seen with stenosis. Correlate with auscultation. Enlarged main pulmonary artery suggests underlying pulmonary hypertension. Emphysema. D/ / Ed Pierre / Ed Pierre Interpreting Provider: Ed Pierre - Imaging and Cardiology Echo: report reviewed Consult Discharge Plan - Plan Additional Instructions: [facility] DISCHARGE INSTRUCTIONS Dr. Arreguin PROCEDURE PERFORMED Open reduction and internal fixation of the left distal humerus and olecranon Incision care Keep the splint and dressing on at all times. Do not take off or get wet or dirty. Weight bearing status -Nonweightbearing to the left upper extremity. -Resume therapy for right lower extremity per Dr. Benito' instructions. Medications -Pain medication per the discharging medical doctor -Enteric coated aspirin 325 mg by mouth daily for 28 days from the date of the surgery. Other -Knee high PENNY hose 23 hours per day -Sequential compression devices to the calves while in bed. -Consult physical and occupational therapy for mobilization. -Up to chair with assistance at least twice per day. -Follow up with your primary care physician to discuss testing for bone mineral density. Follow-up with Dr. Arreguin at the office 2 weeks from the surgery date for a post operative evaluation. Call the office at [phone] to schedule appointment. Referrals: Merlin Gee MD [Primary Care Provider] -
--- NOTE | 2018-10-12 12:56 | Internal Med Progress Note ---
Hospitalist Progress Note - Encounter Date of Encounter: 10/12/18 Time of Encounter: 12:54 - Subjective Interval History: Ms Hair was stepped up to the progressive care unit this morning due to increased lethargy and worsening sepsis. GEN: admits to fever, chills or malaise HEENT: Denies headache blurriness, or dysphagia RESP: Denies SOB or cough CV: Denies chest pain or palpitations GI: Denies Nausea, vomiting, diarrhea or constipation Reviewed current in hospital medications with modifications see orders Reviewed Routine labs - Exam Vitals: Temp Pulse Resp BP Pulse Ox 98.7 F 86 18 85/55 98 10/12/18 11:45 10/12/18 11:45 10/12/18 11:45 10/12/18 11:45 10/12/18 11:45 Exam: GEN: Not in acute distress today but still appears somnolent but much improved from yesterday's daughter at the bedside SKIN: Pale warm acyanotic not jaundice HEART: Irregularly irregular rate and rhythm , grade 3/6 systolic murmur appreciated today LUNGS: Diminished but no wheeze few scattered crackles, overall non labored ABDOMEN; Soft, non tender or distended, BS x 4 normactive EXT: No LE edema, Pedal pulses 1+, radial pulses 2+, left and held in flexion noted to be wrapped in Chad wrap and in a sling PSYCH: Mood and affect is appropriate - Assessment and Plan (1) Sepsis due to gram-negative UTI Current Visit: Yes Status: Acute Assessment and Plan: Initial blood cultures negative for 48 hours although in the setting of patient already on ceftriaxone for Escherichia coli UTI, repeat blood cultures is pending. Urine culture revealed pansensitive Escherichia coli continue ceftriaxone, leukocytosis trended up 12-12.3-19.7, antimicrobial therapy was switched from ceftriaxone to Vanco and Zosyn renally dosed, she is now rate controlled atrial flutter. Repeat portable chest x-ray was negative, CT abdomen and pelvis also unrevealing except for fecal impaction and CT chest does reveal nodularity in the right upper and middle lobes (2) UTI (urinary tract infection) with pyuria Current Visit: Yes Status: Acute Assessment and Plan: Urine culture reveals pansensitive Escherichia coli was on ceftriaxone x 3 days however due to worsening picture she has been switched to vancomycin and Zosyn (3) Acute blood loss anemia Current Visit: Yes Status: Acute Assessment and Plan: hgb is stable trended up to 8 Patient with known left upper extremity hematoma, we will trend CBC Status post ORIF case was discussed with Dr. Lyn, he stated that he did not appreciate any large vessel trauma from the fracture but patient did have hematoma he was also updated on her recent development. Upper extremity drain continues to have serosanguineous/bloody output. He has instructed the nurse to disconitue CODY drain the left upper extremity with hopes of eventual tamponade. High hemoglobin improved from 7.5 to 8 status post 1 unit of packed red blood cell yesterday, trended down to 7.4 and is now 8.3, anemia work up was unyielding with normal levels of ferritin B12 and folate (4) Atrial flutter with rapid ventricular response Current Visit: Yes Status: Acute Assessment and Plan: Toprol XL was increased to twice a day, she is now rate controlled. Will DC IV metoprolol prior history of atrial fibrillation not on anticoagulation due to bleed. She was noted on telemetry to be tachycardic and EKG stat revealed atrial flutter with rapid ventricular response today which rate noted on telemetry 120s to 130s. We will obtain a initial troponin given that she is complaining of tingling sensation in the left upper extremity, cardiology have been consulted given the complexity of acute illness-recent ORIF hematoma of left upper extremity. case was discussed with the military professional sharepoint administrator he recommended discussing with the orthopedic physician. Per physician this afternoon with Dr. Lyn given that patient still appears to have active left upper extremity hematoma she is high risk for anticoagulation at present. Metoprolol 2.5 mg every 6 has been ordered for puldse greater than 110 (5) Humerus fracture Current Visit: Yes Status: Acute Assessment and Plan: Dr. Lyn was updated on her current status as aforementioned Status post ORIF. Orthopedic surgeon she would likely need ECF referral for rehabilitation (6) DM type 2 (diabetes mellitus, type 2) Current Visit: Yes Status: Chronic Assessment and Plan: A1c 5.9, POC 96-171, patient is not eating much would be cautious with insulin (7) DVT prophylaxis Current Visit: Yes Status: Acute Assessment and Plan: SCDs (8) COPD (chronic obstructive pulmonary disease) Current Visit: Yes Status: Chronic Assessment and Plan: We will discontinued duoneb switch to levalbuterol, (9) HTN (hypertension) Current Visit: Yes Status: Chronic Assessment and Plan: Blood pressure is low normal (10) CKD (chronic kidney disease) stage 3, GFR 30-59 ml/min Current Visit: Yes Status: Chronic Assessment and Plan: Serum creatinine trended up 1.19-1.28, resolved 1.17 -0.97- 0.84 today, of note patient has one kidney (11) History of atrial fibrillation without current medication Current Visit: Yes Status: Chronic Assessment and Plan: now aflutter with rvr today, see plan above not on anticoagulation. Pt. reports she cannot take Coumadin or other antico agulants d/t being supratherapeutic. Takes 81 mg ASA daily. (12) Hypokalemia Current Visit: Yes Status: Acute Assessment and Plan: Resolved (13) Acute hyponatremia Current Visit: Yes Status: Acute Assessment and Plan: She is not overly volume over load, she is being having poor intake with past 48 hours sodium is 131 today is 134. We will monitor (14) Abnormal CT of the chest Current Visit: Yes Status: Acute Assessment and Plan: nodularities noted in right upper and middle lobes, clinically she appears to be worsening aspiration pneumonia is of concern, given her acute decline we will consult speech therapy - Time Spent with Patient Total time spent is greater than 50% in coordination of care (as documented) at patient's floor/unit and/or counseling patient: Internal Medicine: Result - Labs CBC & Chem 7: 10/12/18 00:05 10/12/18 00:05 Labs: Short CBC 10/12/18 Range/Units 00:05 WBC 19.7 H D (4.3-11.1) K/mcL Hgb 8.0 L (11.5-15.4) g/dL Hct 24.9 L (35.3-44.9) % Plt Count 249 (140-400) K/mcL BMP 10/12/18 00:05 Sodium 131 L Potassium 4.0 Chloride 104 Carbon Dioxide 19 L BUN 20 Creatinine 0.84 Glucose 183 H Calcium 8.3 L Cardiac Enzymes 10/12/18 10/12/18 Range/Units 00:05 06:45 Troponin I 0.07 H* 0.06 H* (< 0.04) ng/mL - ABG Interpretation ABG results: ABG ABG pH 7.43 pH Units (7.32-7.45) 10/12/18 00:11 ABG pCO2 30 mmHg (35-45) L 10/12/18 00:11 ABG pO2 82 mmHg (85-104) L 10/12/18 00:11 ABG O2 Saturation 96 % (95-98) 10/12/18 00:11 PT/INR, D-dimer PT 12.4 Seconds (9.4-12.1) H 10/10/18 13:39 - Impressions Impressions Chest X-Ray 10/12/18 00:18 IMPRESSION: Negative portable chest. D/ / Carrington Garcias MD / Carrington Garcias MD Interpreting Provider: Carrington Garcias MD Abdomen/Pelvis CT 10/12/18 00:46 IMPRESSION: 1. Suspected stercoral proctitis. 2. Diverticulosis without scan evidence for diverticulitis. D/ / Carrington Garcias MD / Carrington Garcias MD Interpreting Provider: Carrington Garcias MD Chest CT 10/12/18 00:48 IMPRESSION: Mild multifocal clustered nodularity in the right upper and middle lobes, suspicious for infectious or inflammatory bronchiolitis. Mild mediastinal lymphadenopathy is presumably reactive. Trace left pleural effusion with associated atelectasis. Aortic valvular calcifications may be seen with stenosis. Correlate with auscultation. Enlarged main pulmonary artery suggests underlying pulmonary hypertension. Emphysema. D/ / Ed Pierre / Ed Pierre Interpreting Provider: Ed Pierre Consult Discharge Plan - Plan Additional Instructions: RESIDENTIAL DISCHARGE INSTRUCTIONS Dr. Lyn PROCEDURE PERFORMED Open reduction and internal fixation of the left distal humerus and olecranon Incision care Keep the splint and dressing on at all times. Do not take off or get wet or dirty. Weight bearing status -Nonweightbearing to the left upper extremity. -Resume therapy for right lower extremity per Dr. Benito' instructions. Medications -Pain medication per the discharging medical doctor -Enteric coated aspirin 325 mg by mouth daily for 28 days from the date of the surgery. Other -Knee high PENNY hose 23 hours per day -Sequential compression devices to the calves while in bed. -Consult physical and occupational therapy for mobilization. -Up to chair with assistance at least twice per day. -Follow up with your primary care physician to discuss testing for bone mineral density. Follow-up with Dr. Lyn at the office 2 weeks from the surgery date for a post operative evaluation. Call the office at [phone] to schedule appointment. Referrals: Merlin Gee MD [Primary Care Provider] - __ (5) Humerus fracture Qualifiers: Encounter type: initial encounter Humerus Location: supracondylar fracture without intercondylar fracture Fracture type: closed Fracture alignment: displaced Laterality: left Qualified Code(s): S42.412A - Displaced simple sup racondylar fracture without intercondylar fracture of left humerus, initial encounter for closed fracture (6) DM type 2 (diabetes mellitus, type 2) Qualifiers: Diabetes mellitus avionics integration engineer insulin use: without senior living use Diabetes mellitus complication status: without complication Qualified Code(s): E11.9 - Type 2 diabetes mellitus without complications (8) COPD (chronic obstructive pulmonary disease) Qualifiers: COPD type: unspecified COPD Qualified Code(s): J44.9 - Chronic obstructive pulmonary disease, unspecified (9) HTN (hypertension) Qualifiers: Hypertension type: essential hypertension Qualified Code(s): I10 - Essential (primary) hypertension
--- NOTE | 2018-10-12 13:48 | Electrocardiograph Report ---
[place] [id number] Test Date: 2018-10-10 Pat Name: Ramona Arroyo Department: 114 Room: 2N09 Gender: F Test Baker: : 1935 Requested By: Davion Renner Order Number: [id number] Reading MD: Jaime Villalobos Measurements Intervals [place] Rate: 95 P: [place]: 0 QRS: -5 QRSD: 110 T: -43 QT: 316 QTc: 369 Interpretive Statements ATRIAL FIBRILLATION WITH CONTROLLED RATE BASELINE ARTIFACT Electronically Signed On 10-12-2018 13:46:57 EDT by Jaime Villalobos
--- NOTE | 2018-10-12 14:55 | Electrocardiograph Report ---
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
[2018-10-12] MEDS: Acetaminophen 325 MG TABLET PO PRN (23:52)
[2018-10-13] MEDS: Aspirin Enteric Coated 81 MG Tablet PO SCH (08:54)
[2018-10-13] MEDS: Cholecalciferol (D-3) 1,000 UNIT (25MCG) TABLET PO SCH (08:55)
[2018-10-13] MEDS: Ascorbic Acid 500 MG TABLET PO SCH (08:55)
[2018-10-13] MEDS: Gabapentin 100 MG CAPSULE PO SCH (08:55)
[2018-10-13] MEDS: Metoprolol XL (24 HR) Succ 25 MG TAB.ER.24H PO SCH ×2 (08:55→20:31)
[2018-10-13] MEDS: traMADol 50 MG TABLET PO PRN ×3 (08:56→20:33)
[2018-10-13] MEDS: Insulin LISPRO 300 UNITS/3 ML VIAL SQ SCH ×5 (09:00→20:34)
[2018-10-13] MEDS: Piperacillin/Tazobactam 3.375 GM in 0.9 % Sodium Chloride Mini Bag 100 ML IVPB SCH ×2 (09:03→15:28)
[2018-10-13] MEDS: 0.9 % Sodium Chloride 1,000 ML IVC SCH (10:30)
--- NOTE | 2018-10-13 11:15 | Cardiology Progress Note ---
Date of Encounter: 10/13/18 Time of Encounter: 10:00 Assessment and Plan (1) Atrial fibrillation Current Visit: Yes Status: Chronic Per Cardiology: Suspect multifactorial-- dehydration, leukocytosis, anemia. Currently afib 90s on telemetry. On Toprol-XL 12.5 mg by mouth daily. Systolic blood pressure 90s to 100s. Will change Toprol to 12.5mg PO BID-- titrate as BP will allow. Suspect A. fib heart rates will improve with treatment of underlying comorbids. Remains anemic, may benefit from another unit of blood (received 1 unit) CHA2Ds Vasc=3. Patient has hx of PAF and was intolerant to coumadin per outpatient record d/t anemia; additionally, patient has fallen x3 in the past month with x2 injuries. Continue asa for now. She is aware of increased risk of CVA. Discussed with Dr. Ruiz. No further inpt recommendations, Cardiology will sign-off. Qualifiers: Atrial fibrillation type: paroxysmal Qualified Code(s): I48.0 - Paroxysmal atrial fibrillation (2) Humerus fracture Current Visit: Yes Status: Acute Per Cardiology: PREOPERATIVE DIAGNOSIS: Left distal humerus fracture POSTOPERATIVE DIAGNOSIS: Left distal humerus fracture and nondisplaced olecranon fracture PROCEDURE: Open reduction and internal fixation of left distal humerus and left olecranon Management per primary service. Qualifiers: Encounter type: initial encounter Humerus Location: supracondylar fracture without intercondylar fracture Fracture type: closed Fracture alignment: displaced Laterality: left Qualified Code(s): S42.412A - Displaced simple supracondylar fracture without intercondylar fracture of left humerus, initial encounter for closed fracture Discussion w patient/family: The assessment and plan as outlined above was discussed with the patient and/or family members who expressed understanding and agreement. All questions were answered. Thank you for involving us in the care of your patient. Please call with any questions. Subjective Principal diagnosis: Afib Interval history: Seen and examined. Remains in afib, now rate controlled. No new CV complaints. Objective Vital Signs, Last 4 Hours Temp Pulse Resp BP Pulse Ox 10/13/18 07:54 98.2 F 97 18 114/49 91 General: Conversant HEENT: Atraumatic, Normocephaly Cardiac: Other (irregularly irregular) Lungs: Normal Breath Sounds (anterior only) Neuro: Alert and responsive Abdomen: Soft Musculoskeletal: Other (left arm immobilized in sling) Extremities: Normal Pulses Results 10/12/18 00:05 10/12/18 00:05 Active Medications Acetaminophen (Tylenol) 650 mg PO Q6H PRN PRN Reason: Mild Pain/Fever Stop: 04/09/19 22:28 Last Admin: 10/12/18 23:52 Dose: 650 mg Documented by: Albuterol Sulfate (Proventil Inhaler) 2 puff IH [id number] PRN PRN Reason: Wheezing Stop: 04/09/19 14:22 Last Admin: 10/09/18 07:47 Dose: 2 puff Documented by: Albuterol/Ipratropium (Duoneb) 3 ml IH [id number] PRN PRN Reason: Shortness Of Breath/Wheezing Stop: 04/09/19 19:20 Ascorbic Acid (Vitamin C) 500 mg PO DAILY [facility] Stop: 04/10/19 09:01 Last Admin: 10/13/18 08:55 Dose: 500 mg Documented by: Aspirin (Aspirin Ec) 81 mg PO DAILY [facility] Stop: 04/09/19 09:01 Last Admin: 10/13/18 08:54 Dose: 81 mg Documented by: Budesonide/Formoterol Fumarate (Symbicort) 2 puff IH BIDR [facility]; Protocol Stop: 04/09/19 10:01 Last Admin: 10/12/18 21:52 Dose: 2 puff Documented by: Dextrose/Water (Dextrose 50% (Syg)) 25 ml IVP AD PRN PRN Reason: Hypoglycemia Stop: 04/09/19 03:26 Docusate Sodium (Colace) 100 mg PO BID [facility] Stop: 04/09/19 09:01 Last Admin: 10/13/18 08:54 Dose: 100 mg Documented by: Gabapentin (Neurontin) 100 mg PO DAILY [facility] Stop: 04/10/19 09:01 Last Admin: 10/13/18 08:55 Dose: 100 mg Documented by: Gemfibrozil (Lopid) 600 mg PO BID [facility] Stop: 04/09/19 09:01 Last Admin: 10/13/18 08:54 Dose: 600 mg Documented by: Glucagon (Glucagen) 1 mg IM ONCE PRN PRN Reason: Hypoglycemia Stop: 04/09/19 03:26 Glucose (Gluctose) 15 gm PO ONCE PRN PRN Reason: Hypoglycemia Stop: 04/09/19 03:26 Glucose (Gluctose) 30 gm PO ONCE PRN PRN Reason: Hypoglycemia Stop: 04/09/19 03:26 Dextrose (Dextrose 5%) 1,000 mls @ 100 mls/hr IVC .Q10H PRN PRN Reason: HYPOGLYCEMIA Stop: 04/09/19 03:27 Sodium Chloride (0.9 % Sodium Chloride) 1,000 mls @ 100 mls/hr IVC .Q10H PABLO Stop: 04/13/19 01:01 Last Admin: 10/13/18 10:30 Dose: 100 mls/hr Documented by: Piperacillin Sod/Tazobactam (Sod 3.375 gm/ Sodium Chloride) 100 mls @ 25 mls/hr IVPB Q8HR [facility] Stop: 04/13/19 08:01 Last Admin: 10/13/18 09:03 Dose: 25 mls/hr Documented by: Vancomycin HCl 750 mg/ Sodium (Chloride) 250 mls @ 250 mls/hr IVPB Q24H [facility] Stop: 04/14/19 02:01 Last Admin: 10/13/18 06:45 Dose: 250 mls/hr Documented by: Insulin Human Lispro (Humalog) 0 units SQ TIDAC [facility]; Protocol Stop: 04/09/19 17:31 Last Admin: 10/13/18 09:00 Dose: Not Given Documented by: Insulin Human Lispro (Humalog) 0 units SQ HS [facility]; Protocol Stop: 04/09/19 21:01 Last Admin: 10/12/18 23:54 Dose: Not Given Documented by: Levalbuterol HCl (Xopenex) 0.63 mg IH [id number] [facility] Stop: 04/13/19 10:01 Last Admin: 10/12/18 21:52 Dose: 0.63 mg Documented by: Metoprolol Succinate (Toprol Xl) 12.5 mg PO BID [facility] Stop: 04/13/19 21:01 Last Admin: 10/13/18 08:55 Dose: 12.5 mg Documented by: Naloxone HCl (Narcan) 0.4 mg IVP Q2MPRN PRN PRN Reason: SEE COMMENTS Stop: 04/09/19 02:06 Ondansetron HCl (Zofran) 4 mg IVP Q8H PRN PRN Reason: Nausea And Vomiting Stop: 04/09/19 22:28 Last Admin: 10/12/18 09:12 Dose: 4 mg Documented by: Oxycodone HCl (Roxicodone) 10 mg PO Q6H PRN PRN Reason: Severe Pain Stop: 04/09/19 22:28 Last Admin: 10/12/18 23:53 Dose: 10 mg Documented by: Promethazine HCl (Phenergan) 6.25 mg IVP Q5MPRN PRN PRN Reason: Nausea And Vomiting Tramadol HCl (Ultram) 50 mg PO TID PRN PRN Reason: Mild Pain Stop: 04/08/19 23:07 Last Admin: 10/13/18 08:56 Dose: 50 mg Documented by: Vitamin D (Vitamin D) 1,000 unit PO DAILY PABLO Stop: 04/10/19 09:01 Last Admin: 10/13/18 08:55 Dose: 1,000 unit Documented by: - Imaging and Cardiology Echo: report reviewed Other Results: 12 hour tele: avg HR=94 afib. Consult Discharge Plan - Plan Additional Instructions: HALFWAY DISCHARGE INSTRUCTIONS Dr. Arreguin PROCEDURE PERFORMED Open reduction and internal fixation of the left distal humerus and olecranon Incision care Keep the splint and dressing on at all times. Do not take off or get wet or dirty. Weight bearing status -Nonweightbearing to the left upper extremity. -Resume therapy for right lower extremity per Dr. Benito' instructions. Medications -Pain medication per the discharging medical doctor -Enteric coated aspirin 325 mg by mouth daily for 28 days from the date of the surgery. Other -Knee high PENNY hose 23 hours per day -Sequential compression devices to the calves while in bed. -Consult physical and occupational therapy for mobilization. -Up to chair with assistance at least twice per day. -Follow up with your primary care physician to discuss testing for bone mineral density. Follow-up with Dr. Arreguin at the office 2 weeks from the surgery date for a post operative evaluation. Call the office at [phone] to schedule appointment. Referrals: Merlin Gee MD [Primary Care Provider] - HAS-BLED Score - Score Bleeding: Prior major bleeding or predisposition to bleeding Elderly: Age>65 years Medication usage predisposing to bleeding: Antiplatelet agents, NSAIDs, Anticoagulants Score: 3
[2018-10-13] MEDS: Levalbuterol Neb 0.63 MG/3 ML IH SCH ×2 (11:21→22:05)
[2018-10-13] MEDS: Budesonide/Formoterol 160/4.5 1 PUFF INH IH SCH ×2 (11:22→22:05)
[2018-10-13 12:12] LABS: Basophils % 0.2 %; Eosinophils # 0.2 K/mcL (0.0-0.6); Eosinophils % 1.2 %; Hematocrit 21.6 % (35.3-44.9); Hemoglobin 6.8 g/dL (11.5-15.4); Immature Granulocytes % 0.6 % (0-4); Lymphocytes # 0.8 K/mcL (0.6-4.6); Mean Corpuscular HGB Conc 31.5 g/dL (31.6-35.5); Mean Corpuscular Hemoglobin 30.5 pg (28.0-33.3); Mean Corpuscular Volume 96.9 fL (83.0-100.0); Mean Platelet Volume 10.6 fL (9.4-12.4); Monocytes # 0.6 K/mcL (0.0-1.3); Monocytes % 3.6 %; Neutrophils # 14.6 K/mcL (1.6-8.9); Platelet Count 237 K/mcL (140-400); Red Blood Count 2.23 M/mcL (3.82-4.97); Red Cell Distribution Width 17.6 % (11.5-14.5); Segmented Neutrophils % 89.4 %; White Blood Count 16.3 K/mcL (4.3-11.1)
[2018-10-13 12:26] LABS: BUN/Creatinine Ratio 27 (6-26); Blood Urea Nitrogen 22 mg/dL (8-23); Calcium 7.4 mg/dL (8.6-10.3); Carbon Dioxide 21 mEq/L (23-29); Chloride 109 mEq/L (98-107); Glucose 185 mg/dL (70-105); Magnesium 1.9 mg/dL (1.6-2.6); Osmolality,Calculated 292 (280-300); Potassium 3.7 mEq/L (3.5-5.1); Sodium 137 mEq/L (136-145); eGFR For African Americans > 60 (> 60); eGFR For Non-African Americans > 60 (> 60)
--- NOTE | 2018-10-13 13:29 | Internal Med Progress Note ---
Hospitalist Progress Note - Encounter Date of Encounter: 10/13/18 Time of Encounter: 13:25 - Subjective Interval History: Ms Arroyo feels so much better status post fecal disimpaction. GEN: Denies fever, chills or malaise, hemoglobin is 6.8 she is agreeable to blood transfusion HEENT: Denies headache blurriness, or dysphagia RESP: Denies SOB or cough CV: Denies chest pain or palpitations GI: Denies Nausea, vomiting, diarrhea or constipation Reviewed current in hospital medications with modifications see orders Reviewed Routine labs - Exam Vitals: Temp Pulse Resp BP Pulse Ox 97.9 F 98 16 131/69 99 10/13/18 11:48 10/13/18 11:48 10/13/18 11:48 10/13/18 11:48 10/13/18 11:48 Exam: GEN: Not in acute distress today, pleasant and conversant, granddaughter and daughter at the bedside SKIN: Pale warm acyanotic not jaundice HEART: Irregularly irregular rate and rhythm , grade 3/6 systolic murmur appr eciated today LUNGS: Diminished but no wheeze few scattered crackles, overall non labored ABDOMEN; Soft, non tender or distended, BS x 4 normactive EXT: No LE edema, Pedal pulses 1+, radial pulses 2+, left and held in flexion noted to be wrapped in Chad wrap and in a sling PSYCH: Mood and affect is appropriate Afib rhythm telemetry with rate controlled mid 80s to 90 - Assessment and Plan (1) Sepsis due to gram-negative UTI Current Visit: Yes Status: Acute Assessment and Plan: Initial blood cultures negative for 72 hours although in the setting of patient already on ceftriaxone for Escherichia coli UTI, repeat blood cultures is pending but negative in 24 hours . Urine culture revealed pansensitive Escherichia coli, she was switched to Vanco and Zosyn renally dosed, due to worsening leukocytosis and clinical correlation. Since fecal disimpaction yesterday patient appears to be less distressed. she is now rate controlled atrial flutter. We will discontinue vancomycin given the patient only has one kidney and aforementioned negative blood cultures so far. Of note Repeat portable chest x-ray was negative, CT abdomen and pelvis also unrevealing except for fecal impaction and CT chest does reveal nodularity in the right upper and middle lobes. She was evaluated by speech therapy no risk of aspiration (2) UTI (urinary tract infection) with pyuria Current Visit: Yes Status: Acute Assessment and Plan: Urine culture reveals pansensitive Escherichia coli was on ceftriaxone x 3 days however due to worsening picture she has been switched to vancomycin and Zosyn. Given the patient only has one kidney will discontinue vancomycin and keep Zosyn (3) Acute blood loss anemia Current Visit: Yes Status: Acute Assessment and Plan: hgb is stable trended up to 8 Patient with known left upper extremity hematoma, we will trend CBC, hemoglobin today 6.8, type and cross and transfuse 2 units of packed RBC Status post ORIF case was discussed with Dr. Lyn, he stated that he did not appreciate any large vessel trauma from the fracture but patient did have hematoma he was also updated on her recent development. Upper extremity drain continues to have serosanguineous/bloody output. He has instructed the nurse to disconitue CODY drain the left upper extremity with hopes of eventual tamponade. High hemoglobin improved from 7.5 to 8 status post 1 unit of packed red blood cell yesterday, trended down to 7.4 and is now 8.3, anemia work up was unyielding with normal levels of ferritin B12 and folate (4) Atrial flutter with rapid ventricular response Current Visit: Yes Status: Acute Assessment and Plan: Toprol XL was increased to twice a day, she is now rate controlled. Plan per cardiology prior history of atrial fibrillation not on anticoagulation due to bleed. She was noted on telemetry to be tachycardic and EKG stat revealed atrial flutter with rapid ventricular response today which rate noted on telemetry 120s to 130s. We will obtain a initial troponin given that she is complaining of tingling sensation in the left upper extremity, cardiology have been consulted given the complexity of acute illness-recent ORIF hematoma of left upper extremity. case was discussed with the vacuum evaporation operator teacher visually impaired he recommended discussing with the orthopedic physician. Per physician this afternoon with Dr. Lyn given that patient still appears to have active left upper extremity hematoma she is high risk for anticoagulation at present. Metoprolol 2.5 mg every 6 has been ordered for puldse greater than 110 (5) Humerus fracture Current Visit: Yes Status: Acute Assessment and Plan: Dr. Lyn was updated on her current status as aforementioned Status post ORIF. Orthopedic surgeon she would likely need ECF referral for rehabilitation (6) DM type 2 (diabetes mellitus, type 2) Current Visit: Yes Status: Chronic Assessment and Plan: A1c 5.9, POC 125-179, cont insulin (7) DVT prophylaxis Current Visit: Yes Status: Acute Assessment and Plan: SCDs (8) COPD (chronic obstructive pulmonary disease) Current Visit: Yes Status: Chronic Assessment and Plan: on levalbuterol low dose due to afib, (9) HTN (hypertension) Current Visit: Yes Status: Chronic Assessment and Plan: Blood pressure is low normal for age. (10) CKD (chronic kidney disease) stage 3, GFR 30-59 ml/min Current Visit: Yes Status: Chronic Assessment and Plan: Serum creatinine trended up 1.19-1.28, resolved 1.17 -0.97- 0.84-0.81 today, of note patient has one kidney (11) History of atrial fibrillation without current medication Current Visit: Yes Status: Chronic Assessment and Plan: now aflutter with rvr today, see plan above not on anticoagulation. Pt. reports she cannot take Coumadin or other an ticoagulants d/t being supratherapeutic. Takes 81 mg ASA daily. (12) Hypokalemia Current Visit: Yes Status: Acute Assessment and Plan: Resolved (13) Acute hyponatremia Current Visit: Yes Status: Acute Assessment and Plan: She is not overly volume over load, she is being having poor intake with past 48 hours sodium is 131 yesterday. Resolved sodium 137 today which is within goal of correction (14) Abnormal CT of the chest Current Visit: Yes Status: Acute Assessment and Plan: nodularities noted in right upper and middle lobes, clinically she appears to be worsening aspiration pneumonia is of concern, given her acute decline we will consult speech therapy-no concern for aspiration upon evaluation - Time Spent with Patient Total time spent is greater than 50% in coordination of care (as documented) at patient's floor/unit and/or counseling patient: Plan of Care Discussed with: family Internal Medicine: Result - Labs CBC & Chem 7: 10/13/18 11:55 10/13/18 11:55 Labs: Short CBC 10/13/18 Range/Units 11:55 WBC 16.3 H (4.3-11.1) K/mcL Hgb 6.8 L (11.5-15.4) g/dL Hct 21.6 L (35.3-44.9) % Plt Count 237 (140-400) K/mcL Neutrophils # 14.6 H (1.6-8.9) K/mcL BMP 10/13/18 11:55 Sodium 137 Potassium 3.7 Chloride 109 H Carbon Dioxide 21 L BUN 22 Creatinine 0.81 Glucose 185 H Calcium 7.4 L - ABG Interpretation ABG results: ABG ABG pH 7.43 pH Units (7.32-7.45) 10/12/18 00:11 ABG pCO2 30 mmHg (35-45) L 10/12/18 00:11 ABG pO2 82 mmHg (85-104) L 10/12/18 00:11 ABG O2 Saturation 96 % (95-98) 10/12/18 00:11 PT/INR, D-dimer PT 12.4 Seconds (9.4-12.1) H 10/10/18 13:39 Consult Discharge Plan - Plan Additional Instructions: [facility] DISCHARGE INSTRUCTIONS Dr. Lyn PROCEDURE PERFORMED Open reduction and internal fixation of the left distal humerus and olecranon Incision care Keep the splint and dressing on at all times. Do not take off or get wet or dirty. Weight bearing status -Nonweightbearing to the left upper extremity. -Resume therapy for right lower extremity per Dr. Benito' instructions. Medications -Pain medication per the discharging medical doctor -Enteric coated aspirin 325 mg by mouth daily for 28 days from the date of the surgery. Other -Knee high PENNY hose 23 hours per day -Sequential compression devices to the calves while in bed. -Consult physical and occupational therapy for mobilization. -Up to chair with assistance at least twice per day. -Follow up with your primary care physician to discuss testing for bone mineral density. Follow-up with Dr. Lyn at the office 2 weeks from the surgery date for a post operative evaluation. Call the office at [phone] to schedule appointment. Referrals: Merlin Gee MD [Primary Care Provider] - (5) Humerus fracture Qualifiers: Encounter type: initial encounter Humerus Location: supracondylar fracture without intercondylar fracture Fracture type: closed Fracture alignment: displaced Laterality: left Qualified Code(s): S42.412A - Displaced simple supracondylar fracture without intercondylar fracture of left humerus, initial encounter for closed fracture (6) DM type 2 (diabetes mellitus, type 2) Qualifiers: Diabetes mellitus rodent exterminator insulin use: without rodent exterminator use Diabetes mellitus complication status: without complication Qualified Code(s): E11.9 - Type 2 diabetes mellitus without complications (8) COPD (chronic obstructive pulmonary disease) Qualifiers: COPD type: unspecified COPD Qualified Code(s): J44.9 - Chronic obstructive pulmonary disease, unspecified (9) HTN (hypertension) Qualifiers: Hypertension type: essential hypertension Qualified Code(s): I10 - Essential (primary) hypertension
[2018-10-13] MEDS ORDERED: 0.9 % Sodium Chloride 250 ML ONE ×2 (16:00→22:29)
[2018-10-13] MEDS: Acetaminophen 325 MG TABLET PO PRN (17:24)
[2018-10-13] MEDS ORDERED: Aminoglycoside Consult 1 EACH MC ONE (18:10)
[2018-10-13] MEDS: *HR* OxyCODONE Immed Rel 5 MG TABLET PO PRN (22:43)
[2018-10-14] MEDS: Piperacillin/Tazobactam 3.375 GM in 0.9 % Sodium Chloride Mini Bag 100 ML IVPB SCH ×2 (01:00→09:22)
[2018-10-14 05:14] LABS: Basophils % 0.2 %; Eosinophils # 0.3 K/mcL (0.0-0.6); Eosinophils % 2.5 %; Hematocrit 27.8 % (35.3-44.9); Immature Granulocytes % 0.6 % (0-4); Lymphocytes # 1.2 K/mcL (0.6-4.6); Lymphocytes % 8.4 %; Mean Corpuscular HGB Conc 31.3 g/dL (31.6-35.5); Mean Corpuscular Hemoglobin 29.5 pg (28.0-33.3); Mean Corpuscular Volume 94.2 fL (83.0-100.0); Mean Platelet Volume 10.5 fL (9.4-12.4); Monocytes # 0.7 K/mcL (0.0-1.3); Monocytes % 5.2 %; Neutrophils # 11.5 K/mcL (1.6-8.9); Platelet Count 226 K/mcL (140-400); Red Blood Count 2.95 M/mcL (3.82-4.97); Red Cell Distribution Width 16.6 % (11.5-14.5); Segmented Neutrophils % 83.1 %; White Blood Count 13.8 K/mcL (4.3-11.1)
[2018-10-14 05:19] LABS: Hemoglobin 8.7 g/dL (11.5-15.4)
[2018-10-14 05:35] LABS: BUN/Creatinine Ratio 24 (6-26); Blood Urea Nitrogen 19 mg/dL (8-23); Calcium 7.7 mg/dL (8.6-10.3); Carbon Dioxide 17 mEq/L (23-29); Chloride 109 mEq/L (98-107); Glucose 121 mg/dL (70-105); Magnesium 1.9 mg/dL (1.6-2.6); Osmolality,Calculated 284 (280-300); Phosphorous 1.9 mg/dL (2.7-4.5); Potassium 4.1 mEq/L (3.5-5.1); Sodium 135 mEq/L (136-145); eGFR For African Americans > 60 (> 60); eGFR For Non-African Americans > 60 (> 60)
[2018-10-14] MEDS: 0.9 % Sodium Chloride 1,000 ML IVC SCH ×2 (07:31→19:29)
[2018-10-14] MEDS: Insulin LISPRO 300 UNITS/3 ML VIAL SQ SCH ×4 (09:15→20:50)
[2018-10-14] MEDS: Metoprolol XL (24 HR) Succ 25 MG TAB.ER.24H PO SCH ×2 (09:23→20:48)
[2018-10-14] MEDS: Aspirin Enteric Coated 81 MG Tablet PO SCH (09:23)
[2018-10-14] MEDS: Gabapentin 100 MG CAPSULE PO SCH (09:23)
--- NOTE | 2018-10-14 09:23 | Internal Med Progress Note ---
Hospitalist Progress Note - Encounter Date of Encounter: 10/14/18 Time of Encounter: 09:20 - Subjective Interval History: I have seen and evaluated the patient at bedside. Patient reports generalized body aches. denies chest pain. Reported having 2 BM of loose stool after being disimpacted. denies nausea, vomiting or abdominal pain - Exam Vitals: Temp Pulse Resp BP Pulse Ox 98.7 F 91 18 119/65 100 10/14/18 08:22 10/14/18 03:15 10/14/18 03:15 10/14/18 03:15 10/14/18 03:15 Exam: Vitals: Reviewed General: Alert and oriented x4. In mild distress due to generalized body aches and weakness Skin: Normal color, no rash, no lesions. HEENT: EOM, pupils equal, round and reactive. Cardiovascular: Tachycardic, irregularly irregular, normal S1 & S2, no rubs, murmurs or gallops. Lungs: CTA b/l, no wheezes or crackles. Abdomen: Soft, non-tender, no rigidity. Extremities: No edema in the lower extr b/l. Neurological: Normal cognition and motor skills. Rest of the physical exam is non contributory - Assessment and Plan (1) DM type 2 (diabetes mellitus, type 2) Current Visit: Yes Status: Chronic (2) Humerus fracture Current Visit: Yes Status: Acute (3) COPD (chronic obstructive pulmonary disease) Current Visit: Yes Status: Chronic (4) HTN (hypertension) Current Visit: Yes Status: Chronic (5) CKD (chronic kidney disease) stage 3, GFR 30-59 ml/min Current Visit: Yes Status: Chronic (6) History of atrial fibrillation without current medication Current Visit: Yes Status: Chronic (7) Sepsis due to gram-negative UTI Current Visit: Yes Status: Acute (8) UTI (urinary tract infection) with pyuria Current Visit: Yes Status: Acute (9) Acute blood loss anemia Current Visit: Yes Status: Acute (10) Atrial flutter with rapid ventricular response Current Visit: Yes Status: Acute (11) Hypokalemia Current Visit: Yes Status: Acute (12) Acute hyponatremia Current Visit: Yes Status: Acute (13) Abnormal CT of the chest Current Visit: Yes Status: Acute - Summary of Assessment and Plan Summary of Assessment and Plan: 83 year old female w/PMH of asthma, CKD, COPD, atrial fibrillation not on anticoagulation, diabetes, HTN, previous breast and kidney cancer (resolved) presents from [facility] ED w/CC and left arm pain after sustaining a fall. Patient was admitted due to left humeral fracture. 1. Humeral fracture s/p Open reduction and internal fixation of left distal humerus and left olecranon - to continue with daily PT/OT - Patient encourage to participate on PT/OT 2. Atrial Fibrillation - Patient with HR sub-optimally controlled. will increase BB to 25mg/PO BID - Off anticoagulation due to Hx of GI bleeding. - Continue Aspirin 3. COPD - patient in no exacerbation - continue bronchodilators Q4RT PRN - Incentive spirometry 4. Anemia. Possible acute blood lost - H&H has remained stable. patient is status post 3 units of PRBCs transfused - WIll continue to monitor and transfer per protocol - Ferrous sulfate added 5. UTI - UC growing mcclelland-sensitive e.coli - Blood culture: No growth to date - will narrow antibiotics coverage, patient hemodynamilly stable and WBC trending down - DC piperaxillin/tazobactam. Started on ceftriaxone 1gm/IV daily. 6. Acidosis possible due to dehydration in the setting of poor PO intake and GI lost - DC 0.9NS - Started on LR @75ml/hr x2 litters 7. Hypophosphatemia - electrolyte replaced 8. DVT prophylaxis - On heparin subq - Time Spent with Patient Total time spent is greater than 50% in coordination of care (as documented) at patient's floor/unit and/or counseling patient: Greater than 35 minutes (40) Plan of Care Discussed with: patient (and the nurse.) Internal Medicine: Result - Labs CBC & Chem 7: 10/14/18 04:00 10/14/18 04:00 Labs: Short CBC 10/13/18 10/14/18 Range/Units 11:55 04:00 WBC 16.3 H 13.8 H (4.3-11.1) K/mcL Hgb 6.8 L 8.7 L D (11.5-15.4) g/dL Hct 21.6 L 27.8 L (35.3-44.9) % Plt Count 237 226 (140-400) K/mcL Neutrophils # 14.6 H 11.5 H (1.6-8.9) K/mcL BMP 10/13/18 10/14/18 11:55 04:00 Sodium 137 135 L Potassium 3.7 4.1 Chloride 109 H 109 H Carbon Dioxide 21 L 17 L BUN 22 19 Creatinine 0.81 0.80 Glucose 185 H 121 H Calcium 7.4 L 7.7 L - ABG Interpretation ABG results: ABG ABG pH 7.43 pH Units (7.32-7.45) 10/12/18 00:11 ABG pCO2 30 mmHg (35-45) L 10/12/18 00:11 ABG pO2 82 mmHg (85-104) L 10/12/18 00:11 ABG O2 Saturation 96 % (95-98) 10/12/18 00:11 PT/INR, D-dimer PT 12.4 Seconds (9.4-12.1) H 10/10/18 13:39 Consult Discharge Plan - Plan Additional Instructions: [facility] DISCHARGE INSTRUCTIONS Dr. Arreguin PROCEDURE PERFORMED Open reduction and internal fixation of the left distal humerus and olecranon Incision care Keep the splint and dressing on at all times. Do not take off or get wet or dirty. Weight bearing status -Nonweightbearing to the left upper extremity. -Resume therapy for right lower extremity per Dr. Benito' instructions. Medications -Pain medication per the discharging medical doctor -Enteric coated aspirin 325 mg by mouth daily for 28 days from the date of the surgery. Other -Knee high PENNY hose 23 hours per day -Sequential compression devices to the calves while in bed. -Consult physical and occupational therapy for mobilization. -Up to chair with assistance at least twice per day. -Follow up with your primary care physician to discuss testing for bone mineral density. Follow-up with Dr. Arreguin at the office 2 weeks from the surgery date for a post operative evaluation. Call the office at [phone] to schedule appointment. Referrals: Merlin Gee MD [Primary Care Provider] - (1) DM type 2 (diabetes mellitus, type 2) Qualifiers: Diabetes mellitus exterminator insulin use: without residential use Diabetes mellitus complication status: without complication Qualified Code(s): E11.9 - Type 2 diabetes mellitus without complications (2) Humerus fracture Qualifiers: Encounter type: initial encounter Humerus Location: supracondylar fracture without intercondylar fracture Fracture type: closed Fracture alignment: displaced Laterality: left Qualified Code(s): S42.412A - Displaced simple supracondylar fracture without intercondylar fracture of left humerus, initial encounter for closed fracture (3) COPD (chronic obstructive pulmonary disease) Qualifiers: COPD type: unspecified COPD Qualified Code(s): J44.9 - Chronic obstructive pulmonary disease, unspecified (4) HTN (hypertension) Qualifiers: Hypertension type: essential hypertension Qualified Code(s): I10 - Essential (primary) hypertension
[2018-10-14] MEDS: Ascorbic Acid 500 MG TABLET PO SCH (09:24)
[2018-10-14] MEDS: Cholecalciferol (D-3) 1,000 UNIT (25MCG) TABLET PO SCH (09:24)
[2018-10-14] MEDS: Ringers Solution, Lactated 1,000 ML IVC SCH ×2 (09:30→18:45)
[2018-10-14] MEDS: Budesonide/Formoterol 160/4.5 1 PUFF INH IH SCH ×2 (10:11→22:17)
[2018-10-14] MEDS: Levalbuterol Neb 0.63 MG/3 ML IH SCH ×2 (10:12→22:17)
[2018-10-14] MEDS: *HR* OxyCODONE Immed Rel 5 MG TABLET PO PRN ×2 (11:21→20:48)
[2018-10-14] MEDS: cefTRIAXone 1,000 MG in Water for inj. (sterile) 10 ML IVP SCH (11:22)
[2018-10-14] MEDS: traMADol 50 MG TABLET PO PRN (16:12)
[2018-10-15] MEDS: *HR* OxyCODONE Immed Rel 5 MG TABLET PO PRN ×2 (05:38→15:47)
[2018-10-15 05:52] LABS: Basophils % 0.2 %; Eosinophils # 0.3 K/mcL (0.0-0.6); Eosinophils % 3.5 %; Hematocrit 26.6 % (35.3-44.9); Hemoglobin 8.7 g/dL (11.5-15.4); Immature Granulocytes % 1.1 % (0-4); Lymphocytes # 1.2 K/mcL (0.6-4.6); Lymphocytes % 12.2 %; Mean Corpuscular HGB Conc 32.7 g/dL (31.6-35.5); Mean Corpuscular Hemoglobin 30.5 pg (28.0-33.3); Mean Corpuscular Volume 93.3 fL (83.0-100.0); Mean Platelet Volume 10.3 fL (9.4-12.4); Monocytes # 0.6 K/mcL (0.0-1.3); Monocytes % 6.3 %; Neutrophils # 7.4 K/mcL (1.6-8.9); Platelet Count 240 K/mcL (140-400); Red Blood Count 2.85 M/mcL (3.82-4.97); Red Cell Distribution Width 16.5 % (11.5-14.5); Segmented Neutrophils % 76.7 %; White Blood Count 9.6 K/mcL (4.3-11.1)
[2018-10-15 06:19] LABS: BUN/Creatinine Ratio 24 (6-26); Blood Urea Nitrogen 14 mg/dL (8-23); Calcium 7.8 mg/dL (8.6-10.3); Carbon Dioxide 20 mEq/L (23-29); Chloride 106 mEq/L (98-107); Glucose 122 mg/dL (70-105); Magnesium 1.9 mg/dL (1.6-2.6); Osmolality,Calculated 292 (280-300); Potassium 3.8 mEq/L (3.5-5.1); Sodium 140 mEq/L (136-145); eGFR For African Americans > 60 (> 60); eGFR For Non-African Americans > 60 (> 60)
[2018-10-15] MEDS: Cholecalciferol (D-3) 1,000 UNIT (25MCG) TABLET PO SCH (09:44)
[2018-10-15] MEDS: Aspirin Enteric Coated 81 MG Tablet PO SCH (09:44)
[2018-10-15] MEDS: Ascorbic Acid 500 MG TABLET PO SCH (09:44)
[2018-10-15] MEDS: Metoprolol XL (24 HR) Succ 25 MG TAB.ER.24H PO SCH (09:44)
[2018-10-15] MEDS: Gabapentin 100 MG CAPSULE PO SCH (09:44)
[2018-10-15] MEDS: cefTRIAXone 1,000 MG in Water for inj. (sterile) 10 ML IVP SCH (09:45)
[2018-10-15] MEDS: Insulin LISPRO 300 UNITS/3 ML VIAL SQ SCH ×2 (09:46→11:54)
[2018-10-15] MEDS: Levalbuterol Neb 0.63 MG/3 ML IH SCH (10:13)
[2018-10-15] MEDS: Budesonide/Formoterol 160/4.5 1 PUFF INH IH SCH (10:13)
[2018-10-15] MEDS: traMADol 50 MG TABLET PO PRN (13:43)
--- NOTE | 2018-10-15 13:51 | Discharge Summary ---
Orders not resulted at time of discharge: Pending orders 10/10/18 13:39 Culture,Blood [BC] Stat 10/12/18 01:00 Culture,Blood [BC] Stat Date of Encounter: 10/15/18 Time of Encounter: 13:45 - Discharge Diagnosis (1) DM type 2 (diabetes mellitus, type 2) Priority: Secondary Status: Chronic Qualifiers: Diabetes mellitus detention insulin use: without buttermaker use Diabetes mellitus complication status: without complication Qualified Code(s): E11.9 - Type 2 diabetes mellitus without complications (2) Humerus fracture Priority: Primary Status: Inactive Qualifiers: Encounter type: initial encounter Humerus Location: supracondylar fracture without intercondylar fracture Fracture type: closed Fracture alignment: displaced Laterality: left Qualified Code(s): S42.412A - Displaced simple supracondylar fracture without intercondylar fracture of left humerus, initial encounter for closed fracture (3) COPD (chronic obstructive pulmonary disease) Priority: Secondary Status: Chronic Qualifiers: COPD type: unspecified COPD Qualified Code(s): J44.9 - Chronic obstructive pulmonary disease, unspecified (4) HTN (hypertension) Priority: Secondary Status: Chronic Qualifiers: Hypertension type: essential hypertension Qualified Code(s): I10 - Essent ial (primary) hypertension (5) CKD (chronic kidney disease) stage 3, GFR 30-59 ml/min Priority: Secondary Status: Chronic (6) History of atrial fibrillation without current medication Priority: Secondary Status: Chronic (7) Sepsis due to gram-negative UTI Priority: Primary Status: Resolved (8) UTI (urinary tract infection) with pyuria Priority: Primary Status: Acute (9) Acute blood loss anemia Priority: Secondary Status: Acute (10) Atrial flutter with rapid ventricular response Priority: Secondary Status: Resolved (11) Hypokalemia Priority: Secondary Status: Resolved (12) Acute hyponatremia Priority: Secondary Status: Acute (13) Abnormal CT of the chest Priority: Secondary Status: Acute Hospital course: Ms. Arroyo is a 83 year old female PMH of asthma, CKD, COPD, atrial fibrillation not on anticoagulation, diabetes, HTN, previous breast and kidney cancer (resolved) presents from [facility] ED w/CC and left arm pain after susta ining a fall. Patient reports she felt a "pop" in her arm. patient was admitted to the hospital due to Acute mildly displaced supracondylar fracture of the distal humerus. ortho consulted and patient underwent: Open reduction and internal fixation of left distal humerus and left olecranon. During this admission patient developed a septic picture, with leukocytosis of 19.0, and tachycardia. Patient was diagnosed with a UTI. Mcclelland-cultured. Urine culture: grew mcclelland-sensitive E.coli. Blood culture: no growth. Patient was not started on anticoagulation secondary stroke prevention due to patient prior Hx of not tolerating oral anticoagulation due to anemia and Hx of frequent falls. Patient is hemodynamically stable to be discharged to ECF/SNF to continue rehabilitation. - Time Spent with Patient Total time spent providing and/or coordinating discharge services: Time spent: Greater than 30 minutes (35) - Discharge Medications Prescriptions: New Docusate [Colace] 100 mg PO BID 30 Days #60 capsule levoFLOXacin [Levofloxacin] 750 mg PO DAILY 4 Days #4 tablet OxyCODONE Immed Rel [Roxicodone 5 MG] 10 mg PO Q6H PRN 7 Days #15 tablet PRN Reason: Severe Pain Metoprolol XL (24 HR) Succ [Toprol Xl] 50 mg PO DAILY 30 Days #60 tab.er.24h Continued Ascorbic Acid [Vitamin C] 500 mg PO DAILY Cholecalciferol (Vitamin D3) [Vitamin D3] 5,000 unit PO DAILY Cranberry Conc/C/Bacill Coag [Cranberry Tablet] 1 tab PO DAILY Krill/Om-3/Dha/Epa/Phospho/Ast [Maximum Red Krill [place]-3 Sfgl] 1 cap PO DAILY Aspirin Enteric Coated [Aspirin EC] 81 mg PO QAM OxyCODONE/APAP 5/325 [Percocet 5/325 MG] 1 each PO Q6HR PRN PRN Reason: Pain DiphenhydraMINE [Benadryl] 25 mg PO DAILY PRN PRN Reason: Allergy Symptoms Lutein/Zeaxanthin [Lutein-Zeaxanthin 25-5 mg Sfgl] 1 cap PO DAILY Ferrous Sulfate 325 mg PO DAILY Amlodipine Besylate 2.5 mg PO QAM Ondansetron HCl [Zofran] 4 mg PO Q8HR PRN PRN Reason: Nausea Gemfibrozil [Lopid] 600 mg PO BID Armodafinil [Nuvigil] 250 mg PO QAM Gabapentin [Neurontin] 100 mg PO QPM Alendronate Sodium 70 mg PO MO Oxybutynin Chloride [Ditropan XL] 10 mg PO QPM Budesonide/Formoterol 160/4.5 [Symbicort 160/4.5] 2 puff IH BID Albuterol Sulfate [Proair Hfa] 2 puff IH Q6H PRN PRN Reason: Wheezing Home Medications: Alendronate Sodium 70 mg PO MO 04/27/18 [History] Armodafinil [Nuvigil] 250 mg PO QAM 04/27/18 [History] Gabapentin [Neurontin] 100 mg PO QPM 04/27/18 [History] Gemfibrozil [Lopid] 600 mg PO BID 04/27/18 [History] Ondansetron HCl [Zofran] 4 mg PO Q8HR PRN 04/27/18 [History] Albuterol Sulfate [Proair Hfa] 2 puff IH Q6H PRN 07/24/18 [History] Budesonide/Formoterol 160/4.5 [Symbicort 160/4.5] 2 puff IH BID 07/24/18 [History] Oxybutynin Chloride [Ditropan XL] 10 mg PO QPM 07/24/18 [History] Ascorbic Acid [Vitamin C] 500 mg PO DAILY 07/25/18 [History] Cholecalciferol (Vitamin D3) [Vitamin D3] 5,000 unit PO DAILY 07/25/18 [History] Cranberry Conc/C/Bacill Coag [Cranberry Tablet] 1 tab PO DAILY 07/25/18 [History] Krill/Om-3/Dha/Epa/Phospho/Ast [Maximum Red Krill [place]-3 Sfgl] 1 cap PO DAILY 07/25/18 [History] Amlodipine Besylate 2.5 mg PO QAM 10/09/18 [History] Aspirin Enteric Coated [Aspirin EC] 81 mg PO QAM 10/09/18 [History] DiphenhydraMINE [Benadryl] 25 mg PO DAILY PRN 10/09/18 [History] Ferrous Sulfate 325 mg PO DAILY 10/09/18 [History] Lutein/Zeaxanthin [Lutein-Zeaxanthin 25-5 mg Sfgl] 1 cap PO DAILY 10/09/18 [History] OxyCODONE/APAP 5/325 [Percocet 5/325 MG] 1 each PO Q6HR PRN 10/09/18 [History] Docusate [Colace] 100 mg PO BID 30 Days #60 capsule 10/15/18 [Rx] Metoprolol XL (24 HR) Succ [Toprol Xl] 50 mg PO DAILY 30 Days #60 tab.er.24h 10/15/18 [Rx] OxyCODONE Immed Rel [Roxicodone 5 MG] 10 mg PO Q6H PRN 7 Days #15 tablet 10/15/18 [Rx] levoFLOXacin [Levofloxacin] 750 mg PO DAILY 4 Days #4 tablet 10/15/18 [Rx] Allergies/Adverse Reactions: Allergy/AdvReac Type Severity Reaction Status Date / Time methenamine [From Hiprex] Allergy Hives Verified 10/07/18 19:01 monosodium glutamate Allergy Anaphylaxis Verified 10/07/18 19:01 moxifloxacin [From Avelox] Allergy Anaphylaxis Verified 10/07/18 19:01 naproxen [From Naprosyn] Allergy Rash Verified 10/07/18 19:01 clarithromycin [From Biaxin] AdvReac Nausea Verified 10/07/18 19:01 pantoprazole [From Protonix] AdvReac Nausea Verified 10/07/18 19:01 Date of admission: 10/08/18 02:05 Primary care physician: Merlin Gee MD Consults: 10/08/18 02:10 Consult to Bike Mechanic [CONS] Routine Reason for SW Consult: Please assess patient for possible home needs for post-discharge planning. 10/08/18 02:16 Consult to Orthopedic Surgery [CONS] Routine Consulting Provider: [facility] Reason for Consult: Dr. Arreguin consulted by [facility] about this patient w/fx of the left humerus. Call Completed: Yes 10/08/18 02:52 Consult to Nutrition [CONS] Routine Comment: Please give [place] Ensure w/meals Consulting Provider: NUTRITION Reason for Dietary Consult: PO Supplementation 10/08/18 22:27 Consult to Occupational Therapy [CONS] Routine Comment: Evaluate, develop and implement POC Reason for Consult: Left distal humerus ORIF Does patient have active BEDREST order?: No Is patient medically & hemodynamically stable?: Yes Consult to Physical Therapy [CONS] Routine Comment: Evaluate, develop and implement POC Reason for Consult: Left distal humerus ORIF Does patient have active BEDREST order?: No Is patient medically & hemodynamically stable?: Yes 10/10/18 12:56 Consult to Cardiology [CONS] Routine Comment: Consulting Provider: Cardiology Tere Reason for Consult: new onset aflutter, recent orthopedic surgery s/p fall two days ago, left UE hematoma Time Notified: 12:57 Call Completed: Yes - Constitutional Vitals: Temp Pulse Resp BP Pulse Ox 98.5 F 86 14 119/65 93 10/15/18 10:35 10/15/18 10:35 10/15/18 10:35 10/15/18 10:35 10/15/18 10:35 General appearance: Present: cooperative, mild distress (Pain LUE), A&O X 3, pleasant, underweight, answers questions appropriately Exam: Vitals: Reviewed General: Alert and oriented x4. In no distress Cardiovascular: Irregularly irregular, normal S1 & S2, no rubs, murmurs or gallops. Lungs: CTA b/l, no wheezes or crackles. Abdomen: Soft, non-tender, no rigidity. NABS in all 4 quadrants Extremities: No edema in the lower extr b/l. Neurological: Normal cognition and motor skills. Rest of the physical exam is non contributory - Patient Status Disposition: Transfer SNF Condition: Fair Functional capacity at discharge: uses cane/walker Overall status at discharge: patient is progressing back to baseline - Discharge Instructions Follow Up With: Merlin Gee MD [Primary Care Provider] - Additional Instructions: RESIDENTIAL DISCHARGE INSTRUCTIONS Dr. Arreguin PROCEDURE PERFORMED Open reduction and internal fixation of the left distal humerus and olecranon Incision care Keep the splint and dressing on at all times. Do not take off or get wet or dirty. Weight bearing status -Nonweightbearing to the left upper extremity. -Resume therapy for right lower extremity per Dr. Benito' instructions. Medications -Pain medication per the discharging medical doctor -Enteric coated aspirin 325 mg by mouth daily for 28 days from the date of the surgery. Other -Knee high PENNY hose 23 hours per day -Sequential compression devices to the calves while in bed. -Consult physical and occupational therapy for mobilization. -Up to chair with assistance at least twice per day. -Follow up with your primary care physician to discuss testing for bone mineral density. Follow-up with Dr. Arreguin at the office 2 weeks from the surgery date for a post operative evaluation. Call the office at [phone] to schedule appointment. - Diet and Activity Activity: as per physical therapy Diet: advance to your usual diet
--- NOTE | 2018-10-15 13:59 | Physician Discharge Referral ---
ExtendedCare Referral Info Transfer To: [facility] - Diagnosis (1) DM type 2 (diabetes mellitus, type 2) Priority: Primary Status: Chronic (2) Humerus fracture Priority: Primary Status: Inactive (3) COPD (chronic obstructive pulmonary disease) Priority: Secondary Status: Chronic (4) HTN (hypertension) Priority: Secondary Status: Chronic (5) CKD (chronic kidney disease) stage 3, GFR 30-59 ml/min Priority: Secondary Status: Chronic (6) History of atrial fibrillation without current medication Priority: Secondary Status: Chronic (7) Sepsis due to gram-negative UTI Priority: Secondary Status: Resolved (8) UTI (urinary tract infection) with pyuria Priority: Secondary Status: Acute (9) Acute blood loss anemia Priority: Secondary Status: Acute (10) Atrial flutter with rapid ventricular response Priority: Secondary Status: Resolved (11) Hypokalemia Priority: Secondary Status: Resolved (12) Acute hyponatremia Priority: Secondary Status: Acute (13) Abnormal CT of the chest Priority: Secondary Status: Acute Prognosis: Fair Aware of Diagnosis: Patient Aware of Prognosis: Patient - Transfer Medications Prescriptions: Docusate [Colace] 100 mg PO BID 30 Days #60 capsule levoFLOXacin [Levofloxacin] 750 mg PO DAILY 4 Days #4 tablet OxyCODONE Immed Rel [Roxicodone 5 MG] 10 mg PO Q6H PRN 7 Days #15 tablet PRN Reason: Severe Pain Metoprolol XL (24 HR) Succ [Toprol Xl] 50 mg PO DAILY 30 Days #60 tab.er.24h Home Medications: Alendronate Sodium 70 mg PO MO 04/27/18 [History] Armodafinil [Nuvigil] 250 mg PO QAM 04/27/18 [History] Gabapentin [Neurontin] 100 mg PO QPM 04/27/18 [History] Gemfibrozil [Lopid] 600 mg PO BID 04/27/18 [History] Ondansetron HCl [Zofran] 4 mg PO Q8HR PRN 04/27/18 [History] Albuterol Sulfate [Proair Hfa] 2 puff IH Q6H PRN 07/24/18 [History] Budesonide/Formoterol 160/4.5 [Symbicort 160/4.5] 2 puff IH BID 07/24/18 [History] Oxybutynin Chloride [Ditropan XL] 10 mg PO QPM 07/24/18 [History] Ascorbic Acid [Vitamin C] 500 mg PO DAILY 07/25/18 [History] Cholecalciferol (Vitamin D3) [Vitamin D3] 5,000 unit PO DAILY 07/25/18 [History] Cranberry Conc/C/Bacill Coag [Cranberry Tablet] 1 tab PO DAILY 07/25/18 [History] Krill/Om-3/Dha/Epa/Phospho/Ast [Maximum Red Krill [place]-3 Sfgl] 1 cap PO DAILY 07/25/18 [History] Amlodipine Besylate 2.5 mg PO QAM 10/09/18 [History] Aspirin Enteric Coated [Aspirin EC] 81 mg PO QAM 10/09/18 [History] DiphenhydraMINE [Benadryl] 25 mg PO DAILY PRN 10/09/18 [History] Ferrous Sulfate 325 mg PO DAILY 10/09/18 [History] Lutein/Zeaxanthin [Lutein-Zeaxanthin 25-5 mg Sfgl] 1 cap PO DAILY 10/09/18 [History] OxyCODONE/APAP 5/325 [Percocet 5/325 MG] 1 each PO Q6HR PRN 10/09/18 [History] Docusate [Colace] 100 mg PO BID 30 Days #60 capsule 10/15/18 [Rx] Metoprolol XL (24 HR) Succ [Toprol Xl] 50 mg PO DAILY 30 Days #60 tab.er.24h 10/15/18 [Rx] OxyCODONE Immed Rel [Roxicodone 5 MG] 10 mg PO Q6H PRN 7 Days #15 tablet 10/15/18 [Rx] levoFLOXacin [Levofloxacin] 750 mg PO DAILY 4 Days #4 tablet 10/15/18 [Rx] Allergies/Adverse Reactions: Allergy/AdvReac Type Severity Reaction Status Date / Time methenamine [From Hiprex] Allergy Hives Verified 10/07/18 19:01 monosodium glutamate Allergy Anaphylaxis Verified 10/07/18 19:01 moxifloxacin [From Avelox] Allergy Anaphylaxis Verified 10/07/18 19:01 naproxen [From Naprosyn] Allergy Rash Verified 10/07/18 19:01 clarithromycin [From Biaxin] AdvReac Nausea Verified 10/07/18 19:01 pantoprazole [From Protonix] AdvReac Nausea Verified 10/07/18 19:01 - Respiratory Orders None Smoking Cessation: Smoking cessation has been advised. For more information, call the [place] Tobacco Quit Line at 4-350-PPHS-NOW. - Advance Directives Code Status: Full Code - Mobility Orders Ambulate - Rehabiliation Orders Rehab Potential: Fair Rehab Orders: Evaluation for Physical Therapy, Evaluation for Occupational Therapy - Diet Orders Regular CERTIFICATION: I certify that the transfer of the above named patient to an Extended Care Facility is necessary for the continuing treatment of the diagnosis listed. The above information is true and accurate reflection of patient's current condition. Confidential - Redisclosure prohibited without a patient's written consent.
[2018-10-15 15:13] VITALS: BP 116/67
== END 2018-10-15 18:11 | DRG 492 ==
LOC: 3NENU → SUATTDRO 10-08 02:05 → 2NNU 10-12 01:43 → 3NENU 10-14 10:39
PROVIDERS: ADMIT Internal Medicine; ATTEND Internal Medicine

== ENCOUNTER 2020-06-20 11:29 | Inpatient (IN) ==
[2020-06-20] MEDS ORDERED: *HR* Dextrose 50 % in Water (Vial) 50 ML VIAL IVP PRN (11:54)
[2020-06-20] MEDS ORDERED: Ondansetron 4 MG/2 ML VIAL IVP PRN (11:54)
[2020-06-20] MEDS ORDERED: Naloxone 0.4 MG/ML INJ IVP PRN (11:54)
[2020-06-20] MEDS ORDERED: Acetaminophen 325 MG TABLET PO PRN (11:54)
[2020-06-20] MEDS ORDERED: Dextrose Gel 15 GM/37.5 ML TUBE PO PRN ×2 (11:54)
[2020-06-20] MEDS ORDERED: D5% in Water 1,000 ML IVC PRN (11:57)
[2020-06-20 15:46] LABS: Bacteria,Urine Few per hpf (None-Few); Bilirubin,Urine Negative (Negative); Blood,Urine Negative (Negative); Clarity,Urine Clear (Clear); Color,Urine Light-Yellow (Yellow); Glucose,Urine (UA) Normal (Normal); Ketones,Urine Negative (Negative); Leukocyte Esterase,Urine Large (Negative); Nitrite,Urine Positive (Negative); Protein,Urine 50 mg/dL (Neg-Trace); Specific Gravity,Urine 1.017 (1.010-1.025); Urobilinogen,Urine Normal (Normal); WBC,Urine TNTC per hpf (0-3)
[2020-06-20] MEDS: *HR* OxyCODONE Immed Rel 5 MG TABLET PO PRN (18:26)
[2020-06-20] MEDS: Insulin LISPRO 300 UNITS/3 ML VIAL SUBQ SCH (19:03)
[2020-06-20] MEDS: Budesonide/Formoterol 160/4.5 1 PUFF INH IH SCH (19:57)
[2020-06-20] MEDS: Melatonin 3 MG TABLET PO PRN (21:26)
[2020-06-20] MEDS: Metoprolol XL (24 HR) Succ 25 MG TAB.ER.24H PO SCH (21:27)
[2020-06-21 06:21] LABS: Hematocrit 31.1 % (35.3-44.9); Hemoglobin 9.8 g/dL (11.5-15.4); Mean Corpuscular HGB Conc 31.5 g/dL (31.6-35.5); Mean Corpuscular Hemoglobin 28.7 pg (28.0-33.3); Mean Corpuscular Volume 90.9 fL (83.0-100.0); Mean Platelet Volume 11.4 fL (9.4-12.4); Platelet Count 222 K/mcL (140-400); Red Blood Count 3.42 M/mcL (3.82-4.97); Red Cell Distribution Width 16.4 % (11.5-14.5); White Blood Count 6.4 K/mcL (4.3-11.1)
[2020-06-21 06:39] LABS: Calcium 9.6 mg/dL (8.6-10.3); Magnesium 1.9 mg/dL (1.6-2.6); Potassium 4.1 mEq/L (3.5-5.1)
[2020-06-21] MEDS: Insulin LISPRO 300 UNITS/3 ML VIAL SUBQ SCH ×3 (07:31→18:06)
[2020-06-21] MEDS: *HR* OxyCODONE Immed Rel 5 MG TABLET PO PRN (08:01)
[2020-06-21] MEDS: Metoprolol XL (24 HR) Succ 25 MG TAB.ER.24H PO SCH ×2 (08:01→21:41)
[2020-06-21] MEDS ORDERED: Metoprolol XL (24 HR) Succ 25 MG TAB.ER.24H PO SCH (09:00)
[2020-06-21] MEDS ORDERED: Regadenoson 0.4 MG/5 ML SYRINGE IVP ONE (09:50)
[2020-06-21] MEDS ORDERED: Ketorolac 15 MG/ML VIAL IVP ONE (10:35)
[2020-06-21] MEDS ORDERED: *HR* HYDROmorphone (PF) 1 MG/ML SYRINGE IVP ONE (10:40)
[2020-06-21] MEDS: Budesonide/Formoterol 160/4.5 1 PUFF INH IH SCH ×2 (10:41→21:35)
[2020-06-21] MEDS ORDERED: cefTRIAXone 1,000 MG in Water for inj. (sterile) 10 ML IVP SCH (15:00)
[2020-06-21] MEDS: *HR* OxyCODONE/APAP 7.5/325 TABLET PO PRN ×2 (15:52→21:40)
[2020-06-21] MEDS: Gabapentin 100 MG CAPSULE PO SCH (18:06)
[2020-06-21] MEDS: *HR* Heparin 5,000 UNIT/ML VIAL SQ SCH (18:06)
[2020-06-21] MEDS: Melatonin 3 MG TABLET PO PRN (21:40)
[2020-06-22] MEDS: *HR* OxyCODONE/APAP 7.5/325 TABLET PO PRN ×3 (05:44→22:00)
[2020-06-22] MEDS: *HR* Heparin 5,000 UNIT/ML VIAL SQ SCH ×2 (05:44→20:11)
[2020-06-22 06:27] LABS: Hematocrit 30.4 % (35.3-44.9); Hemoglobin 9.6 g/dL (11.5-15.4); Mean Corpuscular HGB Conc 31.6 g/dL (31.6-35.5); Mean Corpuscular Hemoglobin 28.4 pg (28.0-33.3); Mean Corpuscular Volume 89.9 fL (83.0-100.0); Mean Platelet Volume 11.5 fL (9.4-12.4); Platelet Count 218 K/mcL (140-400); Red Blood Count 3.38 M/mcL (3.82-4.97); Red Cell Distribution Width 16.3 % (11.5-14.5); White Blood Count 9.6 K/mcL (4.3-11.1)
[2020-06-22 06:46] LABS: INR 1.1
[2020-06-22 06:49] LABS: Calcium 9.5 mg/dL (8.6-10.3)
[2020-06-22] MEDS: Budesonide/Formoterol 160/4.5 1 PUFF INH IH SCH ×3 (07:33→22:05)
[2020-06-22] MEDS: Metoprolol XL (24 HR) Succ 25 MG TAB.ER.24H PO SCH ×2 (08:38→20:10)
[2020-06-22] MEDS: *HR* HYDROmorphone (PF) 1 MG/ML SYRINGE IVP PRN ×4 (08:38→23:13)
[2020-06-22] MEDS: Insulin LISPRO 300 UNITS/3 ML VIAL SUBQ SCH ×3 (08:45→17:51)
[2020-06-22] MEDS ORDERED: Cyanocobalamin (B-12) 1,000 MCG TABLET PO SCH (09:00)
[2020-06-22] MEDS ORDERED: Lactobacillus 1 EACH CAP.SPRINK PO SCH (09:00)
[2020-06-22] MEDS ORDERED: Ipratropium/Albuterol Neb 3 ML IH PRN ×2 (11:20→20:20)
[2020-06-22] MEDS ORDERED: Nitroglycerin 0.4 MG TAB.SUBL SL PRN ×2 (12:07→20:20)
[2020-06-22] MEDS ORDERED: Cefepime HCl 2,000 MG in Water for inj. (sterile) 20 ML IVP SCH (16:00)
[2020-06-22] MEDS ORDERED: Cefepime HCl 1,000 MG in Water for inj. (sterile) 10 ML IVP SCH (16:00)
[2020-06-22] MEDS ORDERED: *HR* Propofol 200 MG/20 ML VIAL IVP ONE (16:13)
[2020-06-22] MEDS ORDERED: Lidocaine -MPF 2% 2 ML VIAL ONE (16:13)
[2020-06-22] MEDS ORDERED: *HR* FentaNYL (PF) 100 MCG/2 ML VIAL ONE (16:13)
[2020-06-22] MEDS ORDERED: *HR* Rocuronium Bromide 50 MG/5 ML VIAL ONE (16:14)
[2020-06-22] MEDS ORDERED: Dexamethasone 4 MG/ML VIAL ONE (17:04)
[2020-06-22] MEDS ORDERED: Ondansetron 4 MG/2 ML VIAL ONE (17:04)
[2020-06-22] MEDS ORDERED: *HR* HYDROmorphone PF 0.5 MG/0.5 ML SYRINGE IVP PRN ×2 (17:28→20:20)
[2020-06-22] MEDS ORDERED: Sugammadex Sodium 200 MG/2 ML VIAL IV ONE (17:40)
[2020-06-22] MEDS: *HR* FentaNYL (PF) 100 MCG/2 ML VIAL IVP PRN ×5 (17:50→20:19)
[2020-06-22] MEDS ORDERED: Acetaminophen IV 1,000 MG/100 ML BAG IVPB ONE (18:14)
[2020-06-22] MEDS: Gabapentin 100 MG CAPSULE PO SCH (20:09)
[2020-06-22] MEDS ORDERED: Naloxone 0.4 MG/ML INJ IVP PRN (20:20)
[2020-06-22] MEDS ORDERED: Dextrose Gel 15 GM/37.5 ML TUBE PO PRN ×2 (20:20)
[2020-06-22] MEDS ORDERED: Melatonin 3 MG TABLET PO PRN (20:20)
[2020-06-22] MEDS ORDERED: Ondansetron 4 MG/2 ML VIAL IVP PRN (20:20)
[2020-06-22] MEDS ORDERED: D5% in Water 1,000 ML IVC PRN (20:20)
[2020-06-22] MEDS ORDERED: *HR* Dextrose 50 % in Water (Vial) 50 ML VIAL IVP PRN (20:20)
[2020-06-22] MEDS ORDERED: *HR* FentaNYL (PF) 100 MCG/2 ML VIAL IVP PRN (20:20)
[2020-06-22] MEDS: Metoprolol XL (24 HR) Succ 50 MG TAB.ER.24H PO SCH (21:45)
[2020-06-22] MEDS: Apixaban 5 MG TABLET PO SCH (21:50)
[2020-06-23] MEDS: CeFAZolin 2 GM/120 ML BAG IVPB SCH ×2 (00:30→08:36)
[2020-06-23] MEDS: *HR* OxyCODONE/APAP 7.5/325 TABLET PO PRN ×3 (02:10→17:00)
[2020-06-23 02:12] LABS: Basophils % 0.1 %; Hematocrit 29.1 % (35.3-44.9); Hemoglobin 9.3 g/dL (11.5-15.4); Immature Granulocytes % 0.6 % (0-4); Lymphocytes # 0.7 K/mcL (0.6-4.6); Lymphocytes % 4.6 %; Mean Corpuscular Hemoglobin 29.2 pg (28.0-33.3); Mean Corpuscular Volume 91.2 fL (83.0-100.0); Mean Platelet Volume 11.4 fL (9.4-12.4); Monocytes # 0.5 K/mcL (0.0-1.3); Monocytes % 3.6 %; Neutrophils # 13.7 K/mcL (1.6-8.9); Platelet Count 189 K/mcL (140-400); Red Blood Count 3.19 M/mcL (3.82-4.97); Segmented Neutrophils % 91.1 %
[2020-06-23 02:38] LABS: Calcium 8.9 mg/dL (8.6-10.3); Potassium 4.5 mEq/L (3.5-5.1)
[2020-06-23] MEDS: *HR* HYDROmorphone (PF) 1 MG/ML SYRINGE IVP PRN ×2 (02:53→06:13)
[2020-06-23] MEDS: Cefepime HCl 2,000 MG in Water for inj. (sterile) 20 ML IVP SCH ×2 (05:03→17:01)
[2020-06-23] MEDS: Budesonide/Formoterol 160/4.5 1 PUFF INH IH SCH ×2 (07:30→21:15)
[2020-06-23] MEDS: Metoprolol XL (24 HR) Succ 50 MG TAB.ER.24H PO SCH ×2 (08:35→20:57)
[2020-06-23] MEDS: Lactobacillus 1 EACH CAP.SPRINK PO SCH (08:35)
[2020-06-23] MEDS: Cyanocobalamin (B-12) 1,000 MCG TABLET PO SCH (08:36)
[2020-06-23] MEDS: Apixaban 5 MG TABLET PO SCH ×2 (08:36→20:57)
[2020-06-23] MEDS ORDERED: Chloraseptic Spray 177 ML BOTTLE MM PRN (09:19)
[2020-06-23] MEDS: Insulin LISPRO 300 UNITS/3 ML VIAL SUBQ SCH ×3 (09:36→17:05)
[2020-06-23] MEDS ORDERED: 0.9 % Sodium Chloride 1,000 ML IVC SCH (11:30)
[2020-06-23] MEDS ORDERED: Ketorolac 15 MG/ML VIAL IVP ONE (16:23)
[2020-06-23] MEDS: Gabapentin 100 MG CAPSULE PO SCH (17:00)
[2020-06-23] MEDS: Sennosides 8.6 MG TABLET PO SCH (20:57)
[2020-06-24] MEDS: Acetaminophen 325 MG TABLET PO PRN ×2 (01:56→15:49)
[2020-06-24] MEDS: Cefepime HCl 2,000 MG in Water for inj. (sterile) 20 ML IVP SCH ×2 (04:19→15:51)
[2020-06-24] MEDS: *HR* HYDROmorphone (PF) 1 MG/ML SYRINGE IVP PRN (04:22)
[2020-06-24 04:54] LABS: Hematocrit 25.8 % (35.3-44.9); Hemoglobin 8.1 g/dL (11.5-15.4); Mean Corpuscular HGB Conc 31.4 g/dL (31.6-35.5); Mean Corpuscular Hemoglobin 28.6 pg (28.0-33.3); Mean Corpuscular Volume 91.2 fL (83.0-100.0); Mean Platelet Volume 11.6 fL (9.4-12.4); Platelet Count 188 K/mcL (140-400); Red Blood Count 2.83 M/mcL (3.82-4.97); Red Cell Distribution Width 16.2 % (11.5-14.5); White Blood Count 11.8 K/mcL (4.3-11.1)
[2020-06-24 05:10] LABS: Calcium 8.5 mg/dL (8.6-10.3); Potassium 3.6 mEq/L (3.5-5.1)
[2020-06-24] MEDS: Budesonide/Formoterol 160/4.5 1 PUFF INH IH SCH ×2 (08:09→23:15)
[2020-06-24] MEDS: Insulin LISPRO 300 UNITS/3 ML VIAL SUBQ SCH ×3 (08:48→17:07)
[2020-06-24] MEDS: Lactobacillus 1 EACH CAP.SPRINK PO SCH (08:49)
[2020-06-24] MEDS: Sennosides 8.6 MG TABLET PO SCH ×2 (08:49→20:11)
[2020-06-24] MEDS: Metoprolol XL (24 HR) Succ 50 MG TAB.ER.24H PO SCH (08:49)
[2020-06-24] MEDS: Cyanocobalamin (B-12) 1,000 MCG TABLET PO SCH (08:49)
[2020-06-24] MEDS: Apixaban 5 MG TABLET PO SCH ×2 (08:49→20:11)
[2020-06-24] MEDS: *HR* OxyCODONE/APAP 7.5/325 TABLET PO PRN ×2 (14:10→20:11)
[2020-06-24] MEDS: Gabapentin 100 MG CAPSULE PO SCH (17:10)
[2020-06-25] MEDS: Cefepime HCl 2,000 MG in Water for inj. (sterile) 20 ML IVP SCH (03:58)
[2020-06-25 04:28] LABS: Hematocrit 25.9 % (35.3-44.9); Hemoglobin 8.1 g/dL (11.5-15.4); Mean Corpuscular HGB Conc 31.3 g/dL (31.6-35.5); Mean Corpuscular Hemoglobin 28.9 pg (28.0-33.3); Mean Corpuscular Volume 92.5 fL (83.0-100.0); Mean Platelet Volume 11.5 fL (9.4-12.4); Platelet Count 187 K/mcL (140-400); White Blood Count 10.5 K/mcL (4.3-11.1)
[2020-06-25 04:53] LABS: % Iron Saturation 7 % (15-50); BUN/Creatinine Ratio 38 (6-26); Blood Urea Nitrogen 39 mg/dL (8-23); Carbon Dioxide 21 mEq/L (23-29); Chloride 104 mEq/L (98-107); Glucose 126 mg/dL (70-105); Iron 12 mcg/dL (50-170); Osmolality,Calculated 293 (280-300); Phosphorous 3.3 mg/dL (2.7-4.5); Potassium 3.7 mEq/L (3.5-5.1); Sodium 136 mEq/L (136-145); Transferrin 128 mg/dL (203-362); eGFR For African Americans > 60 (> 60); eGFR For Non-African Americans 51 (> 60)
[2020-06-25 05:10] LABS: Ferritin 336 ng/mL (10-120)
[2020-06-25 05:15] LABS: Folate 11.9 ng/mL (3.0-16.0)
[2020-06-25 05:17] LABS: Vitamin B12 > 1500 pg/mL (250-1100)
[2020-06-25] MEDS: Insulin LISPRO 300 UNITS/3 ML VIAL SUBQ SCH ×3 (07:53→17:48)
[2020-06-25] MEDS: Lactobacillus 1 EACH CAP.SPRINK PO SCH (07:54)
[2020-06-25] MEDS: Cyanocobalamin (B-12) 1,000 MCG TABLET PO SCH (07:54)
[2020-06-25] MEDS: Metoprolol XL (24 HR) Succ 50 MG TAB.ER.24H PO SCH (07:54)
[2020-06-25] MEDS: Sennosides 8.6 MG TABLET PO SCH ×2 (07:54→20:42)
[2020-06-25] MEDS: Apixaban 5 MG TABLET PO SCH ×2 (07:54→20:42)
[2020-06-25] MEDS ORDERED: Sodium Ferric Gluconat/Sucrose 125 MG in 0.9 % Sodium Chloride 100 ML IVPB SCH (09:00)
[2020-06-25] MEDS: Budesonide/Formoterol 160/4.5 1 PUFF INH IH SCH ×2 (10:04→20:21)
[2020-06-25] MEDS ORDERED: 0.9 % Sodium Chloride 1,000 ML IVC SCH (10:15)
[2020-06-25] MEDS ORDERED: Isovue-370 500 ML BOTTLE IVP ONE (11:21)
[2020-06-25] MEDS ORDERED: Nitroglycerin 1 INCH/GM PACKET TP ONE (11:23)
[2020-06-25] MEDS: *HR* OxyCODONE/APAP 7.5/325 TABLET PO PRN (11:32)
[2020-06-25 13:44] LABS: Basophils % 0.3 %; Eosinophils # 0.2 K/mcL (0.0-0.6); Eosinophils % 1.8 %; Hematocrit 25.9 % (35.3-44.9); Hemoglobin 8.1 g/dL (11.5-15.4); Immature Granulocytes % 0.7 % (0-4); Lymphocytes # 0.9 K/mcL (0.6-4.6); Lymphocytes % 8.8 %; Mean Corpuscular HGB Conc 31.3 g/dL (31.6-35.5); Mean Corpuscular Hemoglobin 28.9 pg (28.0-33.3); Mean Corpuscular Volume 92.5 fL (83.0-100.0); Mean Platelet Volume 10.5 fL (9.4-12.4); Monocytes # 0.5 K/mcL (0.0-1.3); Neutrophils # 8.8 K/mcL (1.6-8.9); Platelet Count 194 K/mcL (140-400); Segmented Neutrophils % 83.4 %; White Blood Count 10.5 K/mcL (4.3-11.1)
[2020-06-25 13:45] LABS: VBG HCO3 19 mEq/L (21-27); VBG PCO2 36 mmHg (41-51); VBG PH 7.33 pH Units (7.32-7.42); VBG PO2 40 mmHg (25-50)
[2020-06-25] MEDS ORDERED: Acetaminophen IV 1,000 MG/100 ML BAG IVPB ONE (14:19)
[2020-06-25] MEDS ORDERED: *HR* LORazepam 2 MG/ML VIAL IVP ONE (14:37)
[2020-06-25] MEDS: Piperacillin/Tazobactam 3.375 GM in 0.9 % Sodium Chloride Mini Bag 100 ML IVPB SCH ×2 (17:47→23:57)
[2020-06-25] MEDS: Gabapentin 100 MG CAPSULE PO SCH (17:47)
[2020-06-25] MEDS: *HR* HYDROcodone/Acet 5/325 mg TABLET PO PRN (20:41)
[2020-06-26] MEDS: Budesonide/Formoterol 160/4.5 1 PUFF INH IH SCH ×2 (07:43→20:46)
[2020-06-26 08:07] LABS: Hematocrit 25.8 % (35.3-44.9); Hemoglobin 7.9 g/dL (11.5-15.4); Mean Corpuscular HGB Conc 30.6 g/dL (31.6-35.5); Mean Corpuscular Hemoglobin 28.3 pg (28.0-33.3); Mean Corpuscular Volume 92.5 fL (83.0-100.0); Mean Platelet Volume 11.6 fL (9.4-12.4); Platelet Count 229 K/mcL (140-400); Red Blood Count 2.79 M/mcL (3.82-4.97); Red Cell Distribution Width 16.1 % (11.5-14.5); White Blood Count 14.7 K/mcL (4.3-11.1)
[2020-06-26] MEDS ORDERED: NIFEdipine XL (24 HR) 30 MG TAB.ER.24 PO SCH (09:00)
[2020-06-26 09:06] LABS: Carbon Dioxide 21 mEq/L (23-29); Chloride 105 mEq/L (98-107); Potassium 3.9 mEq/L (3.5-5.1); Sodium 135 mEq/L (136-145)
[2020-06-26 09:07] LABS: BUN/Creatinine Ratio 37 (6-26); Blood Urea Nitrogen 37 mg/dL (8-23); Calcium 8.8 mg/dL (8.6-10.3); Glucose 149 mg/dL (70-105); Osmolality,Calculated 291 (280-300); eGFR For African Americans > 60 (> 60); eGFR For Non-African Americans 52 (> 60)
[2020-06-26] MEDS: Insulin LISPRO 300 UNITS/3 ML VIAL SUBQ SCH ×3 (09:14→16:37)
[2020-06-26] MEDS: Lactobacillus 1 EACH CAP.SPRINK PO SCH (09:25)
[2020-06-26] MEDS: Cyanocobalamin (B-12) 1,000 MCG TABLET PO SCH (09:25)
[2020-06-26] MEDS: Sennosides 8.6 MG TABLET PO SCH ×2 (09:25→20:12)
[2020-06-26] MEDS: *HR* HYDROcodone/Acet 5/325 mg TABLET PO PRN (09:25)
[2020-06-26] MEDS: Apixaban 5 MG TABLET PO SCH ×2 (09:25→20:12)
[2020-06-26] MEDS: Piperacillin/Tazobactam 3.375 GM in 0.9 % Sodium Chloride Mini Bag 100 ML IVPB SCH ×2 (09:26→16:55)
[2020-06-26] MEDS ORDERED: 0.9 % Sodium Chloride 2,000 ML ONE (10:15)
[2020-06-26] MEDS ORDERED: 0.9 % Sodium Chloride 250 ML IVC ONE (10:26)
[2020-06-26] MEDS: 0.9 % Sodium Chloride 1,000 ML IVC SCH ×2 (10:27→20:12)
[2020-06-26] MEDS ORDERED: Acetaminophen IV 1,000 MG/100 ML BAG IVPB ONE (10:37)
[2020-06-26] MEDS ORDERED: 0.9 % Sodium Chloride 250 ML ONE (12:00)
[2020-06-26] MEDS: *HR* OxyCODONE/APAP 7.5/325 TABLET PO PRN ×2 (13:26→20:12)
[2020-06-26] MEDS: Nitroglycerin 1 INCH/GM PACKET TP SCH (13:27)
[2020-06-26 17:26] LABS: Hemoglobin 8.4 g/dL (11.5-15.4)
[2020-06-27] MEDS: Piperacillin/Tazobactam 3.375 GM in 0.9 % Sodium Chloride Mini Bag 100 ML IVPB SCH ×2 (00:06→09:28)
[2020-06-27 04:02] LABS: Basophils % 0.3 %; Eosinophils # 0.3 K/mcL (0.0-0.6); Eosinophils % 2.6 %; Hematocrit 25.1 % (35.3-44.9); Hemoglobin 7.9 g/dL (11.5-15.4); Immature Granulocytes % 0.6 % (0-4); Lymphocytes # 0.6 K/mcL (0.6-4.6); Lymphocytes % 6.4 %; Mean Corpuscular HGB Conc 31.5 g/dL (31.6-35.5); Mean Corpuscular Hemoglobin 28.2 pg (28.0-33.3); Mean Corpuscular Volume 89.6 fL (83.0-100.0); Mean Platelet Volume 10.9 fL (9.4-12.4); Monocytes # 0.4 K/mcL (0.0-1.3); Monocytes % 3.9 %; Neutrophils # 8.3 K/mcL (1.6-8.9); Platelet Count 175 K/mcL (140-400); Red Cell Distribution Width 16.7 % (11.5-14.5); Segmented Neutrophils % 86.2 %; White Blood Count 9.6 K/mcL (4.3-11.1)
[2020-06-27 04:16] LABS: Alanine Aminotransferase 3 Units/L (7-52); Albumin 2.5 g/dL (3.5-5.7); Albumin/Globulin Ratio 0.9 (1.1-2.2); Alkaline Phosphatase 46 Units/L (34-104); Aspartate Amino Transferase 12 Units/L (13-39); BUN/Creatinine Ratio 37 (6-26); Bilirubin,Total 0.4 mg/dL (0.3-1.0); Blood Urea Nitrogen 35 mg/dL (8-23); Calcium 7.9 mg/dL (8.6-10.3); Carbon Dioxide 20 mEq/L (23-29); Chloride 108 mEq/L (98-107); Globulin 2.8 g/dL (2.4-3.5); Glucose 116 mg/dL (70-105); Osmolality,Calculated 291 (280-300); Potassium 3.6 mEq/L (3.5-5.1); Sodium 136 mEq/L (136-145); Total Protein 5.3 g/dL (6.4-8.9); eGFR For African Americans > 60 (> 60); eGFR For Non-African Americans 56 (> 60)
[2020-06-27] MEDS: Nitroglycerin 1 INCH/GM PACKET TP SCH ×3 (04:39→12:28)
[2020-06-27] MEDS: *HR* OxyCODONE/APAP 7.5/325 TABLET PO PRN ×2 (05:15→12:37)
[2020-06-27] MEDS: Budesonide/Formoterol 160/4.5 1 PUFF INH IH SCH (07:39)
[2020-06-27] MEDS ORDERED: Metoprolol XL (24 HR) Succ 25 MG TAB.ER.24H PO SCH (09:00)
[2020-06-27] MEDS: Insulin LISPRO 300 UNITS/3 ML VIAL SUBQ SCH ×2 (09:07→12:27)
[2020-06-27] MEDS: Lactobacillus 1 EACH CAP.SPRINK PO SCH (09:28)
[2020-06-27] MEDS: Cyanocobalamin (B-12) 1,000 MCG TABLET PO SCH (09:28)
[2020-06-27] MEDS: Apixaban 5 MG TABLET PO SCH (09:29)
[2020-06-27] MEDS: Acetaminophen 325 MG TABLET PO PRN (09:29)
[2020-06-27] MEDS: Sennosides 8.6 MG TABLET PO SCH (09:29)
[2020-06-27 13:46] VITALS: BP 99/53
[2020-06-27 15:10] LABS: Adenovirus Not Detected (Not Detect); Bordetella Pertussis Not Detected (Not Detect); Chlamydophila pneumoniae Not Detected (Not Detect); Coronavirus 229E Not Detected (Not Detect); Coronavirus HKU1 Not Detected (Not Detect); Coronavirus NL63 Not Detected (Not Detect); Coronavirus OC43 Not Detected (Not Detect); Human Metapneumovirus Not Detected (Not Detect); Human Rhinovirus/Enterovirus Not Detected (Not Detect); Influenza A Subtype 2009 H1 Not Detected (Not Detect); Influenza B Not Detected (Not Detect); Mycoplasma pneumoniae Not Detected (Not Detect); Parainfluenza Virus 1 Not Detected (Not Detect); Parainfluenza Virus 2 Not Detected (Not Detect); Parainfluenza Virus 3 Not Detected (Not Detect); Parainfluenza Virus 4 Not Detected (Not Detect); Respiratory Syncytial Virus Not Detected (Not Detect); SARS-CoV-2 Not Detected (Not Detect)
== END 2020-06-27 16:44 | DRG 481 ==
LOC: PREOBSVTOIN 12:21 → 3ANU 13:43 → SUATTDRO 13:43
PROVIDERS: ADMIT Internal Medicine; ATTEND Internal Medicine

== ENCOUNTER 2021-05-22 14:40 | Inpatient (IN) ==
[2021-05-22] MEDS ORDERED: Cefepime HCl 2,000 MG in 0.9 % Sodium Chloride Mini Bag 100 ML IVPB ONE (15:25)
[2021-05-22] MEDS ORDERED: Vancomycin 1,250 MG/262.5 ML IV.SOLN IVPB ONE (15:25)
[2021-05-22 15:58] LABS: Basophils % 0.3 %; Eosinophils # 0.2 K/mcL (0.0-0.6); Eosinophils % 2.9 %; Hemoglobin 10.2 g/dL (11.5-15.4); Immature Granulocytes % 0.3 % (0-4); Lymphocytes # 1.1 K/mcL (0.6-4.6); Lymphocytes % 15.9 %; Mean Corpuscular Hemoglobin 25.9 pg (28.0-33.3); Mean Corpuscular Volume 86.3 fL (83.0-100.0); Mean Platelet Volume 11.2 fL (9.4-12.4); Monocytes # 0.3 K/mcL (0.0-1.3); Monocytes % 4.4 %; Neutrophils # 5.2 K/mcL (1.6-8.9); Platelet Count 211 K/mcL (140-400); Red Blood Count 3.94 M/mcL (3.82-4.97); Red Cell Distribution Width 18.1 % (11.5-14.5); Segmented Neutrophils % 76.2 %; White Blood Count 6.8 K/mcL (4.3-11.1)
[2021-05-22 16:05] LABS: INR 1.4; Prothrombin Time 15.6 Seconds (9.4-12.1)
[2021-05-22 16:08] LABS: Activated Partial Thrombo Time 33.3 Seconds (26.0-36.0)
[2021-05-22 16:14] LABS: Alanine Aminotransferase 5 Units/L (7-52); Albumin 3.6 g/dL (3.5-5.7); Albumin/Globulin Ratio 1.1 (1.1-2.2); Alkaline Phosphatase 83 Units/L (34-104); Aspartate Amino Transferase 14 Units/L (13-39); BUN/Creatinine Ratio 27 (6-26); Bilirubin,Total 0.4 mg/dL (0.3-1.0); Blood Urea Nitrogen 21 mg/dL (8-23); Calcium 9.4 mg/dL (8.6-10.3); Carbon Dioxide 28 mEq/L (23-29); Chloride 104 mEq/L (98-107); Globulin 3.4 g/dL (2.4-3.5); Glucose 111 mg/dL (70-105); Osmolality,Calculated 288 (280-300); Potassium 4.2 mEq/L (3.5-5.1); Sodium 137 mEq/L (136-145); eGFR For African Americans > 60 (> 60); eGFR For Non-African Americans > 60 (> 60)
[2021-05-22] MEDS ORDERED: D5% in Water 1,000 ML IVC PRN (18:39)
[2021-05-22] MEDS ORDERED: Naloxone 0.4 MG/ML INJ IVP PRN (18:39)
[2021-05-22] MEDS ORDERED: *HR* Dextrose 50 % in Water (Syg) 50 ML SYRINGE IVP PRN (18:39)
[2021-05-22] MEDS ORDERED: Ondansetron ODT 4 MG TAB.RAPDIS SL PRN (18:39)
[2021-05-22] MEDS ORDERED: Dextrose 4 GM Chewable Tablets PO PRN ×2 (18:39)
[2021-05-22] MEDS ORDERED: Acetaminophen 325 MG TABLET PO PRN (18:39)
[2021-05-22] MEDS ORDERED: Ertapenem 1,000 MG in 0.9 % Sodium Chloride Mini Bag 100 ML IVPB SCH (19:00)
[2021-05-22] MEDS: Insulin LISPRO 300 UNITS/3 ML VIAL SUBQ SCH (21:35)
[2021-05-23] MEDS ORDERED: Apixaban 5 MG TABLET PO SCH (01:30)
[2021-05-23] MEDS: Metoprolol XL (24 HR) Succ 50 MG TAB.ER.24H PO SCH ×3 (01:57→20:36)
[2021-05-23] MEDS ORDERED: 0.9 % Sodium Chloride 1,000 ML IVC ONE (06:15)
[2021-05-23 06:40] LABS: Hematocrit 32.2 % (35.3-44.9); Hemoglobin 9.6 g/dL (11.5-15.4); Mean Corpuscular HGB Conc 29.8 g/dL (31.6-35.5); Mean Corpuscular Hemoglobin 25.5 pg (28.0-33.3); Mean Corpuscular Volume 85.6 fL (83.0-100.0); Mean Platelet Volume 11.9 fL (9.4-12.4); Platelet Count 208 K/mcL (140-400); Red Blood Count 3.76 M/mcL (3.82-4.97); Red Cell Distribution Width 18.3 % (11.5-14.5); White Blood Count 8.5 K/mcL (4.3-11.1)
[2021-05-23 06:49] LABS: BUN/Creatinine Ratio 24 (6-26); Blood Urea Nitrogen 22 mg/dL (8-23); Calcium 8.8 mg/dL (8.6-10.3); Carbon Dioxide 25 mEq/L (23-29); Chloride 108 mEq/L (98-107); Glucose 141 mg/dL (70-105); Magnesium 1.7 mg/dL (1.6-2.6); Osmolality,Calculated 294 (280-300); Potassium 4.4 mEq/L (3.5-5.1); Sodium 139 mEq/L (136-145); eGFR For African Americans > 60 (> 60); eGFR For Non-African Americans 58 (> 60)
[2021-05-23] MEDS ORDERED: Ipratropium/Albuterol Neb 3 ML IH PRN (07:42)
[2021-05-23] MEDS ORDERED: Fosfomycin Tromethamine 3 GM Packet PO ONE (08:45)
[2021-05-23] MEDS ORDERED: Albumin 25% 25gram/100mL 25 GM/100 ML IV.SOLN IVPB ONE (09:19)
[2021-05-23] MEDS: Insulin LISPRO 300 UNITS/3 ML VIAL SUBQ SCH ×4 (09:26→20:36)
[2021-05-23] MEDS: Cyanocobalamin (B-12) 1,000 MCG TABLET PO SCH (09:27)
[2021-05-23] MEDS: Gabapentin 100 MG CAPSULE PO SCH ×2 (09:27→20:36)
[2021-05-23] MEDS: Ascorbic Acid 500 MG TABLET PO SCH (09:27)
[2021-05-23] MEDS: Cholecalciferol (D-3) 1,000 UNIT (25MCG) TABLET PO SCH (09:27)
[2021-05-23] MEDS: Vitamin E 200 UNIT (90MG) CAPSULE PO SCH (09:27)
[2021-05-23] MEDS: Chlorhexidine Rinse 15 ML MOUTHWASH MM SCH ×2 (09:35→20:36)
[2021-05-23] MEDS: Mirtazapine 15 MG TABLET PO SCH (20:36)
[2021-05-24 04:33] LABS: White Blood Count 4.4 K/mcL (4.3-11.1)
[2021-05-24 04:34] LABS: Basophils % 0.2 %; Eosinophils # 0.2 K/mcL (0.0-0.6); Eosinophils % 5.2 %; Hematocrit 31.6 % (35.3-44.9); Hemoglobin 9.7 g/dL (11.5-15.4); Immature Granulocytes % 0.2 % (0-4); Lymphocytes # 0.8 K/mcL (0.6-4.6); Lymphocytes % 18.5 %; Mean Corpuscular HGB Conc 30.7 g/dL (31.6-35.5); Mean Corpuscular Hemoglobin 26.6 pg (28.0-33.3); Mean Corpuscular Volume 86.6 fL (83.0-100.0); Mean Platelet Volume 10.7 fL (9.4-12.4); Monocytes # 0.3 K/mcL (0.0-1.3); Monocytes % 6.2 %; Neutrophils # 3.1 K/mcL (1.6-8.9); Platelet Count 172 K/mcL (140-400); Red Blood Count 3.65 M/mcL (3.82-4.97); Segmented Neutrophils % 69.7 %
[2021-05-24 04:53] LABS: BUN/Creatinine Ratio 21 (6-26); Blood Urea Nitrogen 18 mg/dL (8-23); Calcium 8.9 mg/dL (8.6-10.3); Carbon Dioxide 24 mEq/L (23-29); Chloride 107 mEq/L (98-107); Glucose 108 mg/dL (70-105); Magnesium 1.6 mg/dL (1.6-2.6); Osmolality,Calculated 286 (280-300); Potassium 3.8 mEq/L (3.5-5.1); Sodium 137 mEq/L (136-145); eGFR For African Americans > 60 (> 60); eGFR For Non-African Americans > 60 (> 60)
[2021-05-24 04:56] LABS: Albumin 3.3 g/dL (3.5-5.7); Albumin/Globulin Ratio 1.1 (1.1-2.2); Bilirubin,Direct 0.1 mg/dL (0.0-0.2); Bilirubin,Indirect 0.4 mg/dL (0.0-1.0); Bilirubin,Total 0.5 mg/dL (0.3-1.0); Globulin 2.9 g/dL (2.4-3.5); Total Protein 6.2 g/dL (6.4-8.9)
[2021-05-24 05:21] LABS: Folate > 22.3 ng/mL (3.0-16.0); Vitamin B12 836 pg/mL (250-1100)
[2021-05-24] MEDS: Insulin LISPRO 300 UNITS/3 ML VIAL SUBQ SCH ×4 (07:29→20:08)
[2021-05-24] MEDS: Ascorbic Acid 500 MG TABLET PO SCH (07:57)
[2021-05-24] MEDS: Loratadine 10 MG TABLET PO SCH (07:57)
[2021-05-24] MEDS: Cholecalciferol (D-3) 1,000 UNIT (25MCG) TABLET PO SCH (07:57)
[2021-05-24] MEDS: Vitamin E 200 UNIT (90MG) CAPSULE PO SCH (07:57)
[2021-05-24] MEDS: Cyanocobalamin (B-12) 1,000 MCG TABLET PO SCH (07:58)
[2021-05-24] MEDS: Metoprolol XL (24 HR) Succ 50 MG TAB.ER.24H PO SCH ×2 (07:59→20:09)
[2021-05-24] MEDS: Chlorhexidine Rinse 15 ML MOUTHWASH MM SCH ×2 (07:59→20:08)
[2021-05-24] MEDS: Gabapentin 100 MG CAPSULE PO SCH ×2 (07:59→20:09)
[2021-05-24 11:02] LABS: Estimated Average Glucose 128 mg/dl; Hemoglobin A1C 6.1 %
[2021-05-24] MEDS ORDERED: Ertapenem 1,000 MG in 0.9 % Sodium Chloride Mini Bag 100 ML IVPB SCH (15:00)
[2021-05-24] MEDS: Vancomycin Oral Soln 125 MG/2.5 ML UDC PO SCH (17:48)
[2021-05-24] MEDS: Lactobacillus 1 EACH CAP.SPRINK PO SCH (20:09)
[2021-05-24] MEDS: Mirtazapine 15 MG TABLET PO SCH (20:09)
[2021-05-25 04:39] LABS: Basophils % 0.2 %; Eosinophils # 0.2 K/mcL (0.0-0.6); Eosinophils % 3.7 %; Hematocrit 31.1 % (35.3-44.9); Hemoglobin 9.9 g/dL (11.5-15.4); Immature Granulocytes % 0.2 % (0-4); Lymphocytes # 0.9 K/mcL (0.6-4.6); Lymphocytes % 17.5 %; Mean Corpuscular HGB Conc 31.8 g/dL (31.6-35.5); Mean Corpuscular Hemoglobin 26.4 pg (28.0-33.3); Mean Corpuscular Volume 82.9 fL (83.0-100.0); Mean Platelet Volume 10.9 fL (9.4-12.4); Monocytes # 0.3 K/mcL (0.0-1.3); Monocytes % 5.7 %; Neutrophils # 3.7 K/mcL (1.6-8.9); Platelet Count 191 K/mcL (140-400); Red Blood Count 3.75 M/mcL (3.82-4.97); Red Cell Distribution Width 17.5 % (11.5-14.5); Segmented Neutrophils % 72.7 %; White Blood Count 5.1 K/mcL (4.3-11.1)
[2021-05-25 05:02] LABS: BUN/Creatinine Ratio 25 (6-26); Blood Urea Nitrogen 19 mg/dL (8-23); Carbon Dioxide 25 mEq/L (23-29); Chloride 106 mEq/L (98-107); Glucose 137 mg/dL (70-105); Magnesium 1.6 mg/dL (1.6-2.6); Osmolality,Calculated 290 (280-300); Potassium 3.7 mEq/L (3.5-5.1); Sodium 138 mEq/L (136-145); eGFR For African Americans > 60 (> 60); eGFR For Non-African Americans > 60 (> 60)
[2021-05-25] MEDS: Vancomycin Oral Soln 125 MG/2.5 ML UDC PO SCH ×2 (05:48→16:59)
[2021-05-25] MEDS: Chlorhexidine Rinse 15 ML MOUTHWASH MM SCH ×2 (08:29→20:57)
[2021-05-25] MEDS: Vitamin E 200 UNIT (90MG) CAPSULE PO SCH (08:30)
[2021-05-25] MEDS: Cholecalciferol (D-3) 1,000 UNIT (25MCG) TABLET PO SCH (08:30)
[2021-05-25] MEDS: Insulin LISPRO 300 UNITS/3 ML VIAL SUBQ SCH ×4 (08:30→20:57)
[2021-05-25] MEDS: Lactobacillus 1 EACH CAP.SPRINK PO SCH ×2 (08:30→20:56)
[2021-05-25] MEDS: Loratadine 10 MG TABLET PO SCH (08:30)
[2021-05-25] MEDS: Ascorbic Acid 500 MG TABLET PO SCH (08:31)
[2021-05-25] MEDS: Cyanocobalamin (B-12) 1,000 MCG TABLET PO SCH (08:31)
[2021-05-25] MEDS: Metoprolol XL (24 HR) Succ 50 MG TAB.ER.24H PO SCH ×2 (08:31→20:57)
[2021-05-25] MEDS: Gabapentin 100 MG CAPSULE PO SCH ×2 (08:31→20:57)
[2021-05-25] MEDS ORDERED: *HR* Propofol 200 MG/20 ML VIAL IVP ONE ×2 (12:44→13:21)
[2021-05-25] MEDS ORDERED: *HR* FentaNYL (PF) 100 MCG/2 ML VIAL ONE (12:44)
[2021-05-25] MEDS ORDERED: Lidocaine -MPF 2% 5 ML VIAL ONE (12:45)
[2021-05-25] MEDS ORDERED: Ringers Solution, Lactated 1,000 ML IVC SCH (13:00)
[2021-05-25] MEDS ORDERED: Lidocaine 1% 20 ML MDV ONE (13:14)
[2021-05-25] MEDS ORDERED: Ondansetron 4 MG/2 ML VIAL ONE (13:21)
[2021-05-25] MEDS ORDERED: *HR* Dextrose 50 % in Water (Syg) 50 ML SYRINGE IVP PRN (14:57)
[2021-05-25] MEDS ORDERED: Ondansetron ODT 4 MG TAB.RAPDIS SL PRN (14:57)
[2021-05-25] MEDS ORDERED: Naloxone 0.4 MG/ML INJ IVP PRN (14:57)
[2021-05-25] MEDS ORDERED: D5% in Water 1,000 ML IVC PRN (14:57)
[2021-05-25] MEDS ORDERED: Acetaminophen 325 MG TABLET PO PRN (14:57)
[2021-05-25] MEDS ORDERED: Dextrose 4 GM Chewable Tablets PO PRN ×2 (14:57)
[2021-05-25] MEDS ORDERED: Ipratropium/Albuterol Neb 3 ML IH PRN (14:57)
[2021-05-25] MEDS: Ringers Solution, Lactated 1,000 ML IVC SCH (15:24)
[2021-05-25] MEDS: Ertapenem 1,000 MG in 0.9 % Sodium Chloride Mini Bag 100 ML IVPB SCH (15:24)
[2021-05-25] MEDS: Mirtazapine 15 MG TABLET PO SCH (20:56)
[2021-05-25] MEDS: Apixaban 5 MG TABLET PO SCH (20:57)
[2021-05-26] MEDS: Vancomycin Oral Soln 125 MG/2.5 ML UDC PO SCH ×2 (05:07→17:25)
[2021-05-26 06:35] LABS: Basophils % 0.4 %; Eosinophils # 0.2 K/mcL (0.0-0.6); Eosinophils % 3.3 %; Hematocrit 32.5 % (35.3-44.9); Immature Granulocytes % 0.2 % (0-4); Lymphocytes % 19.2 %; Mean Corpuscular HGB Conc 30.8 g/dL (31.6-35.5); Mean Corpuscular Volume 84.6 fL (83.0-100.0); Mean Platelet Volume 10.5 fL (9.4-12.4); Monocytes # 0.3 K/mcL (0.0-1.3); Monocytes % 6.7 %; Neutrophils # 3.6 K/mcL (1.6-8.9); Platelet Count 189 K/mcL (140-400); Red Blood Count 3.84 M/mcL (3.82-4.97); Red Cell Distribution Width 17.7 % (11.5-14.5); Segmented Neutrophils % 70.2 %; White Blood Count 5.1 K/mcL (4.3-11.1)
[2021-05-26 06:56] LABS: BUN/Creatinine Ratio 23 (6-26); Blood Urea Nitrogen 18 mg/dL (8-23); Carbon Dioxide 27 mEq/L (23-29); Chloride 106 mEq/L (98-107); Glucose 133 mg/dL (70-105); Magnesium 1.7 mg/dL (1.6-2.6); Osmolality,Calculated 290 (280-300); Potassium 3.9 mEq/L (3.5-5.1); Sodium 138 mEq/L (136-145); eGFR For African Americans > 60 (> 60); eGFR For Non-African Americans > 60 (> 60)
[2021-05-26] MEDS: Insulin LISPRO 300 UNITS/3 ML VIAL SUBQ SCH ×4 (08:27→20:07)
[2021-05-26] MEDS: Chlorhexidine Rinse 15 ML MOUTHWASH MM SCH ×2 (09:07→20:26)
[2021-05-26] MEDS: Cholecalciferol (D-3) 1,000 UNIT (25MCG) TABLET PO SCH (09:07)
[2021-05-26] MEDS: Vitamin E 200 UNIT (90MG) CAPSULE PO SCH (09:08)
[2021-05-26] MEDS: Metoprolol XL (24 HR) Succ 50 MG TAB.ER.24H PO SCH ×2 (09:08→20:25)
[2021-05-26] MEDS: Ascorbic Acid 500 MG TABLET PO SCH (09:08)
[2021-05-26] MEDS: Lactobacillus 1 EACH CAP.SPRINK PO SCH ×2 (09:08→20:25)
[2021-05-26] MEDS: Apixaban 5 MG TABLET PO SCH ×2 (09:08→20:25)
[2021-05-26] MEDS: Gabapentin 100 MG CAPSULE PO SCH ×2 (09:09→20:25)
[2021-05-26] MEDS: Cyanocobalamin (B-12) 1,000 MCG TABLET PO SCH (09:09)
[2021-05-26] MEDS: Loratadine 10 MG TABLET PO SCH (09:09)
[2021-05-26] MEDS: Ertapenem 1,000 MG in 0.9 % Sodium Chloride Mini Bag 100 ML IVPB SCH (15:26)
[2021-05-26] MEDS: Ringers Solution, Lactated 1,000 ML IVC SCH (15:27)
[2021-05-26] MEDS: DAPTOmycin 350 MG in 0.9 % Sodium Chloride 100 ML IVPB SCH (17:25)
[2021-05-26] MEDS: Mirtazapine 15 MG TABLET PO SCH (20:25)
[2021-05-27] MEDS: Vancomycin Oral Soln 125 MG/2.5 ML UDC PO SCH ×2 (06:12→18:18)
[2021-05-27] MEDS: Insulin LISPRO 300 UNITS/3 ML VIAL SUBQ SCH ×4 (08:17→19:58)
[2021-05-27] MEDS: Chlorhexidine Rinse 15 ML MOUTHWASH MM SCH ×2 (08:37→20:02)
[2021-05-27] MEDS: Cholecalciferol (D-3) 1,000 UNIT (25MCG) TABLET PO SCH (08:37)
[2021-05-27] MEDS: Metoprolol XL (24 HR) Succ 50 MG TAB.ER.24H PO SCH ×2 (08:38→20:02)
[2021-05-27] MEDS: Loratadine 10 MG TABLET PO SCH (08:38)
[2021-05-27] MEDS: Cyanocobalamin (B-12) 1,000 MCG TABLET PO SCH (08:38)
[2021-05-27] MEDS: Gabapentin 100 MG CAPSULE PO SCH ×2 (08:38→20:02)
[2021-05-27] MEDS: Apixaban 5 MG TABLET PO SCH ×2 (08:38→20:02)
[2021-05-27] MEDS: Ascorbic Acid 500 MG TABLET PO SCH (08:38)
[2021-05-27] MEDS: Vitamin E 200 UNIT (90MG) CAPSULE PO SCH (08:39)
[2021-05-27] MEDS: Lactobacillus 1 EACH CAP.SPRINK PO SCH ×2 (08:39→20:02)
[2021-05-27] MEDS: Ertapenem 1,000 MG in 0.9 % Sodium Chloride Mini Bag 100 ML IVPB SCH (14:56)
[2021-05-27] MEDS: Ringers Solution, Lactated 1,000 ML IVC SCH (14:58)
[2021-05-27] MEDS: Mirtazapine 15 MG TABLET PO SCH (20:02)
[2021-05-27] MEDS: DAPTOmycin 350 MG in 0.9 % Sodium Chloride 100 ML IVPB SCH (21:48)
[2021-05-28 05:27] VITALS: BP 122/80; PULSE 90; TEMP 98.7; O2SAT 91
[2021-05-28] MEDS: Vancomycin Oral Soln 125 MG/2.5 ML UDC PO SCH ×2 (05:36→16:44)
[2021-05-28 07:28] LABS: Basophils % 0.4 %; Eosinophils # 0.2 K/mcL (0.0-0.6); Eosinophils % 3.3 %; Hematocrit 32.6 % (35.3-44.9); Immature Granulocytes % 0.6 % (0-4); Lymphocytes % 19.8 %; Mean Corpuscular HGB Conc 30.7 g/dL (31.6-35.5); Mean Corpuscular Hemoglobin 25.8 pg (28.0-33.3); Mean Corpuscular Volume 84.2 fL (83.0-100.0); Mean Platelet Volume 10.5 fL (9.4-12.4); Monocytes # 0.4 K/mcL (0.0-1.3); Neutrophils # 3.6 K/mcL (1.6-8.9); Platelet Count 177 K/mcL (140-400); Red Blood Count 3.87 M/mcL (3.82-4.97); Red Cell Distribution Width 17.8 % (11.5-14.5); Segmented Neutrophils % 68.9 %; White Blood Count 5.2 K/mcL (4.3-11.1)
[2021-05-28 07:51] LABS: BUN/Creatinine Ratio 19 (6-26); Blood Urea Nitrogen 15 mg/dL (8-23); Calcium 9.5 mg/dL (8.6-10.3); Carbon Dioxide 29 mEq/L (23-29); Chloride 103 mEq/L (98-107); Chol/HDL Ratio 5.6 (0-4.9); Cholesterol 140 mg/dL (< 200); Glucose 119 mg/dL (70-105); HDL Cholesterol 25 mg/dL (40-59); LDL Cholesterol,Calculated 92 mg/dL (< 100); Osmolality,Calculated 288 (280-300); Potassium 3.8 mEq/L (3.5-5.1); Sodium 138 mEq/L (136-145); Triglycerides 116 mg/dL (< 150); eGFR For African Americans > 60 (> 60); eGFR For Non-African Americans > 60 (> 60)
[2021-05-28] MEDS: Insulin LISPRO 300 UNITS/3 ML VIAL SUBQ SCH ×3 (09:22→16:48)
[2021-05-28] MEDS: Apixaban 5 MG TABLET PO SCH (09:47)
[2021-05-28] MEDS: Lactobacillus 1 EACH CAP.SPRINK PO SCH (09:47)
[2021-05-28] MEDS: Vitamin E 200 UNIT (90MG) CAPSULE PO SCH (09:47)
[2021-05-28] MEDS: Metoprolol XL (24 HR) Succ 50 MG TAB.ER.24H PO SCH (09:47)
[2021-05-28] MEDS: Cyanocobalamin (B-12) 1,000 MCG TABLET PO SCH (09:48)
[2021-05-28] MEDS: Gabapentin 100 MG CAPSULE PO SCH (09:48)
[2021-05-28] MEDS: Ascorbic Acid 500 MG TABLET PO SCH (09:48)
[2021-05-28] MEDS: Loratadine 10 MG TABLET PO SCH (09:48)
[2021-05-28] MEDS: Cholecalciferol (D-3) 1,000 UNIT (25MCG) TABLET PO SCH (09:48)
[2021-05-28] MEDS: Chlorhexidine Rinse 15 ML MOUTHWASH MM SCH (09:48)
[2021-05-28] MEDS: Ertapenem 1,000 MG in 0.9 % Sodium Chloride Mini Bag 100 ML IVPB SCH (15:18)
== END 2021-05-28 18:50 | DRG 617 ==
LOC: 4WAOSI 14:40 → EMEROOARM 14:40 → SUATTDRO 18:39 → 4WAOSI 19:40
PROVIDERS: ADMIT Internal Medicine; ATTEND General Practice